=== PATIENT | male | born 1935 | race Caucasian/White ===

== ENCOUNTER 2016-05-15 14:49 | Outpatient (RCR) | payer MEDICARE ==
[2016-04-24 13:09] LABS: BASOPHILS % (AUTO) 0 % (0-10); EOSINOPHILS # (AUTO) 0.2 10^3/uL (0.0-0.3); EOSINOPHILS % (AUTO) 3 % (0-10); LYMPHOCYTES # (AUTO) 1.4 X 10^3 (1.0-4.0); LYMPHOCYTES % (AUTO) 25 % (12-44); MEAN CORPUSCULAR HEMOGLOBIN 31 PG (25-34); MEAN CORPUSCULAR HGB CONC 35 G/DL (32-36); MEAN CORPUSCULAR VOLUME 88 FL (80-99); MEAN PLATELET VOLUME 9.6 FL (7.4-10.4); MONOCYTES # (AUTO) 0.6 X 10^3 (0.0-1.0); MONOCYTES % (AUTO) 10 % (0-12); NEUTROPHILS # (AUTO) 3.5 X 10^3 (1.8-7.8); NEUTROPHILS % (AUTO) 62 % (42-75); PLATELET COUNT 93 10^3/uL (130-400); RED BLOOD COUNT 4.87 10^6/uL (4.35-5.85); RED CELL DISTRIBUTION WIDTH 14.1 % (10.0-14.5); WHITE BLOOD COUNT 5.7 10^3/uL (4.3-11.0)
[2016-04-24 14:13] LABS: BILIRUBIN,DIRECT 0.6 MG/DL (0.0-0.3); BILIRUBIN,TOTAL 3.4 MG/DL (0.1-1.0); CALCIUM 9.1 MG/DL (8.5-10.1); CREATININE SERUM 1.18 MG/DL (0.60-1.30); POTASSIUM 3.7 MMOL/L (3.6-5.0)
[~2016-05-15 14:49] MED LIST: ACID1TAB PO; ATOR10TA PO; ATOR10TA66 PO; FEXO180T84 PO; FINA5TAB6 PO; FLUC100T PO; GUAI120013 PO; HYDR-3812 PO; HYTRIN PO; IPRA3AMP INH; LACT1CAP39 PO; MERO500V3 IV; METO-333 PO; ORENCIA; PRD5T PO; PRED5TAB PO; RT-ALBUINH IH; TAMS0.4C2 PO; TERA5CAP3 PO; TOCI80VI IV
[2016-05-15 15:06] LABS: BASOPHILS % (AUTO) 0 % (0-10); EOSINOPHILS # (AUTO) 0.1 10^3/uL (0.0-0.3); EOSINOPHILS % (AUTO) 1 % (0-10); LYMPHOCYTES % (AUTO) 12 % (12-44); MEAN CORPUSCULAR HEMOGLOBIN 31 PG (25-34); MEAN CORPUSCULAR HGB CONC 35 G/DL (32-36); MEAN CORPUSCULAR VOLUME 88 FL (80-99); MEAN PLATELET VOLUME 9.7 FL (7.4-10.4); MONOCYTES # (AUTO) 0.5 X 10^3 (0.0-1.0); MONOCYTES % (AUTO) 6 % (0-12); NEUTROPHILS # (AUTO) 6.8 X 10^3 (1.8-7.8); NEUTROPHILS % (AUTO) 81 % (42-75); PLATELET COUNT 113 10^3/uL (130-400); RED BLOOD COUNT 4.76 10^6/uL (4.35-5.85); RED CELL DISTRIBUTION WIDTH 14.2 % (10.0-14.5); WHITE BLOOD COUNT 8.3 10^3/uL (4.3-11.0)
[2016-05-15 15:45] LABS: ALANINE AMINOTRANSFERASE 24 U/L (0-55); ANION GAP 8 MMOL/L (5-14); ASPARTATE AMINO TRANSFERASE 25 U/L (5-34); BLOOD UREA NITROGEN 19 MG/DL (7-18); BUN/CREATININE RATIO 19; CALCIUM 9.2 MG/DL (8.5-10.1); CARBON DIOXIDE 23 MMOL/L (21-32); CHLORIDE 108 MMOL/L (98-107); CREATININE SERUM 0.98 MG/DL (0.60-1.30); GFR ESTIMATED > 60; GLUCOSE 91 MG/DL (70-105); POTASSIUM 5.2 MMOL/L (3.6-5.0); SODIUM 139 MMOL/L (135-145); TOTAL PROTEIN 6.3 G/DL (6.4-8.2)
== END 2016-07-23 | disposition home or self-care (01) ==
LOC: ONC 14:49
PROVIDERS: ATTEND Internal Medicine Hematology & Oncology
DX: D69.59 Other secondary thrombocytopenia (principal); M06.9 Rheumatoid arthritis, unspecified; R91.1 Solitary pulmonary nodule; E78.5 Hyperlipidemia, unspecified; K57.90 Diverticulosis of intestine, part unspecified, without perforation or abscess without bleeding; N40.0 Benign prostatic hyperplasia without lower urinary tract symptoms; Z87.442 Personal history of urinary calculi
CPT/HCPCS: 36415; 80053; 82248; 85025; 99213

== ENCOUNTER 2016-07-24 13:30 | Outpatient (RCR) | payer MEDICARE ==
[2016-07-24 13:05] LABS: BASOPHILS % (AUTO) 0 % (0-10); EOSINOPHILS # (AUTO) 0.1 10^3/uL (0.0-0.3); EOSINOPHILS % (AUTO) 1 % (0-10); LYMPHOCYTES # (AUTO) 0.9 X 10^3 (1.0-4.0); LYMPHOCYTES % (AUTO) 14 % (12-44); MEAN CORPUSCULAR HEMOGLOBIN 31 PG (25-34); MEAN CORPUSCULAR HGB CONC 35 G/DL (32-36); MEAN CORPUSCULAR VOLUME 87 FL (80-99); MEAN PLATELET VOLUME 9.9 FL (7.4-10.4); MONOCYTES # (AUTO) 0.4 X 10^3 (0.0-1.0); MONOCYTES % (AUTO) 6 % (0-12); NEUTROPHILS # (AUTO) 4.9 X 10^3 (1.8-7.8); NEUTROPHILS % (AUTO) 79 % (42-75); PLATELET COUNT 92 10^3/uL (130-400); RED BLOOD COUNT 5.14 10^6/uL (4.35-5.85); RED CELL DISTRIBUTION WIDTH 13.9 % (10.0-14.5); WHITE BLOOD COUNT 6.2 10^3/uL (4.3-11.0)
[2016-07-24 14:13] LABS: ALANINE AMINOTRANSFERASE 31 U/L (0-55); ALBUMIN 4.2 G/DL (3.2-4.5); ANION GAP 8 MMOL/L (5-14); ASPARTATE AMINO TRANSFERASE 27 U/L (5-34); BILIRUBIN,TOTAL 2.8 MG/DL (0.1-1.0); BLOOD UREA NITROGEN 16 MG/DL (7-18); BUN/CREATININE RATIO 17; CALCIUM 9.2 MG/DL (8.5-10.1); CARBON DIOXIDE 23 MMOL/L (21-32); CHLORIDE 107 MMOL/L (98-107); CREATININE SERUM 0.95 MG/DL (0.60-1.30); GFR ESTIMATED > 60; GLUCOSE 91 MG/DL (70-105); POTASSIUM 4.8 MMOL/L (3.6-5.0); SODIUM 138 MMOL/L (135-145); TOTAL PROTEIN 6.2 G/DL (6.4-8.2)
== END 2016-10-22 | disposition home or self-care (01) ==
LOC: ONC 13:30
PROVIDERS: ATTEND Internal Medicine Hematology & Oncology
DX: D69.59 Other secondary thrombocytopenia (principal); M06.9 Rheumatoid arthritis, unspecified; R91.1 Solitary pulmonary nodule; E78.5 Hyperlipidemia, unspecified; K57.90 Diverticulosis of intestine, part unspecified, without perforation or abscess without bleeding; N40.0 Benign prostatic hyperplasia without lower urinary tract symptoms; Z87.442 Personal history of urinary calculi
CPT/HCPCS: 36415; 80053; 85025; 99213

== ENCOUNTER → 2016-12-24 | Outpatient (CLI) | payer MEDICARE ==
[~2016-12-24] MED LIST changes: +CATHETER FLUSH 10 ML SYR IV PRN; +IOHEXOL 350 MG/ML 100 ML (OMNIPAQUE 350) VIAL IV ONE; +NS 100 ML (IVPB) BAG IV ONE
--- NOTE | 2016-12-24 13:00 | Diagnostic Imaging Report ---
PROCEDURE: CT chest with contrast only. TECHNIQUE: Multiple contiguous axial images were obtained through the chest after administration of intravenous contrast. INDICATION: Right lower lobe lesion. FINDINGS: The previously seen nodular consolidation in the right lower lobe is now overall larger in size but also appears to involve a slightly more medial location. This is perhaps related to recurrent pneumonia, potentially secondary to aspiration based on the location. Another nonspecific nodule in the right middle lobe is 6 mm in size and is unchanged from previous exam. There is also a 5 mm nodule in the inferior lingula. This is also stable. These are indeterminate. There is bibasilar bronchiectasis and scarring probably related to prior infections. There is no pleural or pericardial effusion. The heart size is at the upper limits of normal in size. There is a small hiatal hernia. Surgical clips around the GE junction are seen. Correlate with surgical history. There are nonspecific minimally prominent lymph nodes in the right hilum and in the mediastinum. These are up to 1 cm in size. No axillary lymphadenopathy. Sections in the upper abdomen demonstrate stable benign-appearing cystic lesion in the upper anterior aspect of the spleen. Cholecystectomy clips are seen. The osseous structures demonstrate mild degenerative changes. IMPRESSION: 1. There is a slightly larger area of consolidation in the right lower lobe centered along the medial superior aspect of the previously seen nodular consolidation on 04/08/2016. Given the apparent slight change in location and morphology, this is likely related to recurrent pneumonitis. Consider aspiration etiology. 2. Bibasilar scarring and bronchiectasis which could also relate to recurrent prior aspirations. 3. Indeterminate subcentimeter pulmonary nodules in the right middle lobe and inferior lingula. 4. Followup study in 2-3 months is recommended to reevaluate. Dictated by: Dictated on workstation # [id number]
== END ==
LOC: RAD 07:50
PROVIDERS: ATTEND Urology
DX: R91.8 Other nonspecific abnormal finding of lung field (principal)
CPT/HCPCS: 71260

== ENCOUNTER 2017-02-25 13:15 | Outpatient (RCR) | payer MEDICARE ==
[~2017-02-25 13:15] MED LIST changes: -CATHETER FLUSH 10 ML SYR IV PRN; -IOHEXOL 350 MG/ML 100 ML (OMNIPAQUE 350) VIAL IV ONE; -NS 100 ML (IVPB) BAG IV ONE
[2017-02-25 13:22] LABS: BASOPHILS % (AUTO) 0 % (0-10); EOSINOPHILS # (AUTO) 0.1 10^3/uL (0.0-0.3); EOSINOPHILS % (AUTO) 2 % (0-10); LYMPHOCYTES % (AUTO) 11 % (12-44); MEAN CORPUSCULAR HEMOGLOBIN 31 PG (25-34); MEAN CORPUSCULAR HGB CONC 35 G/DL (32-36); MEAN CORPUSCULAR VOLUME 89 FL (80-99); MEAN PLATELET VOLUME 9.9 FL (7.4-10.4); MONOCYTES # (AUTO) 0.5 X 10^3 (0.0-1.0); MONOCYTES % (AUTO) 6 % (0-12); NEUTROPHILS # (AUTO) 7.1 X 10^3 (1.8-7.8); NEUTROPHILS % (AUTO) 81 % (42-75); PLATELET COUNT 99 10^3/uL (130-400); RED BLOOD COUNT 4.77 10^6/uL (4.35-5.85); RED CELL DISTRIBUTION WIDTH 14.2 % (10.0-14.5); WHITE BLOOD COUNT 8.7 10^3/uL (4.3-11.0)
[2017-02-25 13:55] LABS: ALANINE AMINOTRANSFERASE 25 U/L (0-55); ALBUMIN 3.7 GM/DL (3.2-4.5); ANION GAP 6 MMOL/L (5-14); ASPARTATE AMINO TRANSFERASE 22 U/L (5-34); BILIRUBIN,TOTAL 2.4 MG/DL (0.1-1.0); BLOOD UREA NITROGEN 13 MG/DL (7-18); BUN/CREATININE RATIO 14; CALCIUM 8.9 MG/DL (8.5-10.1); CARBON DIOXIDE 23 MMOL/L (21-32); CHLORIDE 108 MMOL/L (98-107); GFR ESTIMATED > 60; GLUCOSE 93 MG/DL (70-105); LACTATE DEHYDROGENASE 169 U/L (125-220); POTASSIUM 4.4 MMOL/L (3.6-5.0); SODIUM 137 MMOL/L (135-145); TOTAL PROTEIN 5.4 GM/DL (6.4-8.2)
== END 2017-03-05 10:06 | disposition home or self-care (01) ==
LOC: ONC 13:15
PROVIDERS: ATTEND Internal Medicine Hematology & Oncology
DX: D69.59 Other secondary thrombocytopenia (principal); M06.9 Rheumatoid arthritis, unspecified; R91.1 Solitary pulmonary nodule; E78.5 Hyperlipidemia, unspecified; K57.90 Diverticulosis of intestine, part unspecified, without perforation or abscess without bleeding; N40.0 Benign prostatic hyperplasia without lower urinary tract symptoms; Z87.442 Personal history of urinary calculi
CPT/HCPCS: 36415; 80053; 83615; 85025; 99213

== ENCOUNTER → 2017-07-14 | Outpatient (CLI) | payer MEDICARE ==
[~2017-07-14] MED LIST changes: +ACHD5005 PO; -HYDR-3812 PO
--- NOTE | 2017-07-14 16:45 | Diagnostic Imaging Report ---
PROCEDURE: CT chest without contrast. TECHNIQUE: Multiple contiguous axial images were obtained through the chest without the use of intravenous contrast. INDICATION: Asthma, shortness of breath. FINDINGS: The previous CT chest exam performed on 12/14/2016 noted postsurgical changes involving the right thorax as well as an area of consolidation in the right lung base. On this exam, the irregular parenchymal density in the right lower lobe seen previously is again evident and does not seem to have changed significantly in size; however, there is now a suggestion of a small 8 mm focus of cavitation along the medial aspect of this abnormal parenchymal density. There has also been an increase in the atelectasis/infiltrate lateral to this area of consolidation. The atelectasis/infiltrate involving the left lung base seen previously is again evident and no different. The small nodules in the lingula and right middle lobe are again evident and no different. The upper lungs are relatively clear. There is no sign of a pleural effusion. The heart is stable in size. Coronary artery calcifications are again noted. The aorta is not abnormally dilated. There is no obvious mediastinal or hilar adenopathy. The thyroid gland where visualized is unremarkable. The sections through the upper abdomen fail to show any sign of an acute abnormality. A portion of the stomach has extended through the diaphragmatic hiatus. I suspect that this is a paraesophageal hernia as opposed to a hiatal hernia. If further study is desired, then an esophagram would be recommended. As noted no the prior exam, the gallbladder is surgically absent. There are several benign-appearing cysts associated with the spleen. The bone windows show no sign of a fracture or for an acute abnormality. The post traumatic/postsurgical changes involving the right thorax seen previously are again evident and no different. IMPRESSION: 1. The area of consolidation in the right lung base seen previously does not appear to have changed significantly although there now appears to be a small focus of cavitation in this area. There has been some increase in the atelectasis/infiltrate in the right lung base near the right hemidiaphragm. I suspect that these findings are related to an indolent inflammatory/infectious process. A three-month follow-up CT chest exam will be recommended for further study. 2. There is no acute cardiopulmonary abnormality identified. 3. There is cardiomegaly and coronary artery disease. 4. 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 Recommendations as above. Dictated by: Dictated on workstation # [id number]
== END ==
LOC: RAD 13:37
PROVIDERS: ATTEND Nurse Practitioner Family
DX: J45.909 Unspecified asthma, uncomplicated (principal); J18.1 Lobar pneumonia, unspecified organism; I51.7 Cardiomegaly; I25.10 Atherosclerotic heart disease of native coronary artery without angina pectoris
CPT/HCPCS: 71250

== ENCOUNTER → 2018-01-07 | Outpatient (CLI) | payer MEDICARE ==
[~2018-01-07] MED LIST changes: -IPRA3AMP INH; +IPRA3AMP31 INH
--- NOTE | 2018-01-07 11:04 | Diagnostic Imaging Report ---
PROCEDURE: CT chest without contrast. TECHNIQUE: Multiple contiguous axial images were obtained through the chest without the use of intravenous contrast. INDICATION: Shortness of breath and six-month followup. COMPARISON: Comparison is made with prior CT chest from 07/14/2017. FINDINGS: No axillary lymphadenopathy is identified. Hilar and mediastinal evaluation is limited without intravenous contrast but no gross abnormality is seen. There are coronary arterial calcifications present. No definite pericardial or pleural fluid is identified. Large hiatal hernia is again seen. Parenchymal evaluation again demonstrates small nodular densities in right middle lobe and lingula, stable. Chronic bilateral lower lobe areas of parenchymal consolidation with associated cylindrical bronchiectasis is again noted and appears similar. Area of consolidation in the right lower lobe posteriorly is stable. The region of parenchymal consolidation with associated central cavitation in the right lower lobe just cephalad to the dominant consolidation has resolved or nearly resolved. There continues to be some consolidation laterally near the costophrenic angle. No new infiltrate is seen. Upper abdomen again shows low densities within the spleen, stable. IMPRESSION: 1. There continue to be regions of parenchymal consolidation bilateral lower lobes greatest on the right with associated bronchiectasis. This is again likely on the basis of infectious/inflammatory etiology. Previously noted area of consolidation with central cavitation has improved and partially resolved since CT from 07/14/2017. No new abnormality is detected. Dictated by: Dictated on workstation # [id number]
== END ==
LOC: RAD 10:06
PROVIDERS: ATTEND Nurse Practitioner Family
DX: J18.1 Lobar pneumonia, unspecified organism (principal); J44.9 Chronic obstructive pulmonary disease, unspecified
CPT/HCPCS: 71250

== ENCOUNTER 2018-04-01 07:46 | Outpatient (RCR) | payer MEDICARE ==
[2018-04-01 08:19] LABS: BASOPHILS % (AUTO) 1 % (0-10); EOSINOPHILS # (AUTO) 0.2 10^3/uL (0.0-0.3); EOSINOPHILS % (AUTO) 3 % (0-10); HEMATOCRIT 43 % (40-54); HEMOGLOBIN 15.3 G/DL (13.3-17.7); LYMPHOCYTES # (AUTO) 1.3 X 10^3 (1.0-4.0); LYMPHOCYTES % (AUTO) 26 % (12-44); MEAN CORPUSCULAR HEMOGLOBIN 31 PG (25-34); MEAN CORPUSCULAR HGB CONC 35 G/DL (32-36); MEAN CORPUSCULAR VOLUME 88 FL (80-99); MEAN PLATELET VOLUME 9.6 FL (7.4-10.4); MONOCYTES # (AUTO) 0.6 X 10^3 (0.0-1.0); MONOCYTES % (AUTO) 11 % (0-12); NEUTROPHILS % (AUTO) 59 % (42-75); PLATELET COUNT 117 10^3/uL (130-400); RED BLOOD COUNT 4.92 10^6/uL (4.35-5.85); RED CELL DISTRIBUTION WIDTH 13.6 % (10.0-14.5); WHITE BLOOD COUNT 5.1 10^3/uL (4.3-11.0)
[2018-04-01 08:21] LABS: ALANINE AMINOTRANSFERASE 26 U/L (0-55); ALKALINE PHOSPHATASE 70 U/L (40-136); BILIRUBIN,TOTAL 2.3 MG/DL (0.1-1.0); BUN/CREATININE RATIO 14; CALCIUM 9.4 MG/DL (8.5-10.1); CARBON DIOXIDE 22 MMOL/L (21-32); CHLORIDE 108 MMOL/L (98-107); CREATININE SERUM 1.07 MG/DL (0.60-1.30); GFR ESTIMATED > 60; GLUCOSE 84 MG/DL (70-105); POTASSIUM 4.2 MMOL/L (3.6-5.0); SODIUM 139 MMOL/L (135-145); TOTAL PROTEIN 6.4 GM/DL (6.4-8.2)
== END 2018-06-28 | disposition home or self-care (01) ==
LOC: ONC 07:46
PROVIDERS: ATTEND Internal Medicine Hematology & Oncology
DX: D69.59 Other secondary thrombocytopenia (principal); M06.9 Rheumatoid arthritis, unspecified; R91.1 Solitary pulmonary nodule; E78.5 Hyperlipidemia, unspecified; K57.90 Diverticulosis of intestine, part unspecified, without perforation or abscess without bleeding; N40.0 Benign prostatic hyperplasia without lower urinary tract symptoms; Z87.442 Personal history of urinary calculi
CPT/HCPCS: 36415; 80053; 85025

== ENCOUNTER → 2020-07-04 | Outpatient (CLI) | payer MEDICARE ==
[~2020-07-04] MED LIST changes: +MERO500V24 IV; -MERO500V3 IV; +RT-ALBUTEROL SULF 2.5 MG/3 ML PRE-MIX VIAL INH ONE
== END ==
LOC: RT 13:00
PROVIDERS: ATTEND Nurse Practitioner Family
DX: J44.9 Chronic obstructive pulmonary disease, unspecified (principal)
CPT/HCPCS: 94060; 94726; 94729

== ENCOUNTER 2020-09-03 15:03 | Emergency (ER) | payer MEDICARE ==
[~2020-09-03] VITALS: Ht 177 cm; Wt 84.0 kg
[~2020-09-03 15:03] MED LIST changes: -RT-ALBUTEROL SULF 2.5 MG/3 ML PRE-MIX VIAL INH ONE; +TERA5CAP10 PO; -TERA5CAP3 PO
--- NOTE | 2020-09-03 15:35 | ED EENT ---
History of Present Illness General Stated Complaint: CONFUSION/DIZZY Source: patient, family Exam Limitations: physical impairment (Hearing difficulty) History of Present Illness Date Seen by Provider: Sep 03, 2020 Time Seen by Provider: 15:15 Initial Comments Patient is an 85-year-old male who presents to the emergency department today with a chief complaint of feeling "fuzzy" and dizzy for the last 10 days to 1 months. Patient has had extensive surgeries on both ears and his only hearing ear is his left ear. Patient states he has had drainage out of that left ear and has been using eardrops for the last 3 weeks. His daughter is present at the bedside and helps with the history. The patient is communicated with by khalida lawler as he is so hard of hearing. He denies pain. He denies fevers or chills. No abdominal pain. No cough or congestion. His daughter states that he has been having some issues with balance and coordination. She was concerned about a stroke as her mother just had a stroke yesterday. The patient overall looks very well. He ambulates with a cane to room 8 without assistance. He is interactive and affable. All other review of systems reviewed and negative except as stated above. Timing/Duration: gradual Severity: moderate Location: ear (L) Prearrival Treatment: no prearrival treatment, prescription meds (gentamycin ear drops) Associated Symptoms: change in hearing (harder to hear even with hearing aid) Allergies and Home Medications Allergies Coded Allergies: Sulfa (Sulfonamide Antibiotics) (Unverified Allergy, Unknown, 07/04/20) Home Medications Albuterol Sulfate 8.5 Gm Hfa.aer.ad, 1 PUFF IH Q6H PRN for SHORTNESS OF BREATH, (Reported) Atorvastatin Calcium 10 Mg Tablet, 5 MG PO HS, (Reported) Cefuroxime Axetil 250 Mg Tablet, 250 MG PO BID Prescribed by: DIXIE THOMPSON on 09/03/20 1540 Fexofenadine HCl 180 Mg Tablet, 180 MG PO DAILY PRN for ALLERGY, (Reported) Finasteride 5 Mg Tablet, 5 MG PO DAILY, (Reported) Fluconazole 100 Mg Tablet, 100 MG PO DAILY Prescribed by: DIONNE SAMUEL on 03/10/15 1050 Guaifenesin 1,200 Mg Tab.er.12h, 1,200 MG PO DAILY, (Reported) Hydrocodone Bit/Acetaminophen 1 Each Tablet, 1 TAB PO Q6H PRN for PAIN, (Reported) Ipratropium/Albuterol Sulfate 3 Ml Ampul.neb, 3 ML INH TID Prescribed by: DIONNE SAMUEL on 03/10/15 1050 L. Acidophilus/Bulgaricus 1 Each Tablet, 1 TAB.CHEW PO DAILY PRN for REGULARITY Prescribed by: DIONNE SAMUEL on 03/10/15 1050 Lactobacillus Rhamnosus GG 1 Each Capsule, 1 CAP PO DAILY PRN for REGULARITY, (Reported) Meropenem 500 Mg Vial, 500 MG IV Q12H Prescribed by: DIONNE SAMUEL on 03/10/15 1050 Metoprolol Tartrate 25 Mg Tablet, 25 MG PO BID Prescribed by: DIONNE SAMUEL on 03/10/15 1050 Prednisone 5 Mg Tablet, 10 MG PO DAILY, (Reported) Terazosin HCl 5 Mg Capsule, 5 MG PO HS, (Reported) Patient Home Medication List Home Medication List Reviewed: Yes Review of Systems Review of Systems Constitutional: see HPI Eyes: No Symptoms Reported Ears: Dizziness, Purulent Discharge, Other (Decreased hearing over the course of the last month) Nose: no symptoms reported Mouth: no symptoms reported Throat: no symptoms reported Respiratory: no symptoms reported Cardiovascular: no symptoms reported Gastrointestinal: no symptoms reported Musculoskeletal: other (chronnic arthritis pain) Skin: no symptoms reported Neurological: Other (dizziness and "fuzzy" headed) All Other Systems Reviewed Negative Unless Noted: Yes Past Uubayoq-Wmdqvt-Uozuky Hx Immunizations Up To Date Tetanus Booster (TDap): More than 5yrs Date of Pneumonia Vaccine: Feb 20, 2009 Date of Influenza Vaccine: Feb 07, 2011 Past Medical History Abdominal, Gallbladder, Tonsillectomy Emphysema Currently Using CPAP: No Currently Using BIPAP: No Reproductive Disorders: No Sexually Transmitted Disease: No Benign Prostatic Hyperpl, Kidney Stones Hiatal Hernia Rheumatoid Arthritis Adverse Reaction/Blood Tranf: No Family Medical History Cardiovascular disease 19 MOTHER Myocardial infarction 19 FATHER PANCREATIC 19 MOTHER Cancer, CAD Over 55 Years Old Physical Exam Vital Signs Vital Signs - First Documented 09/03/20 15:14 Temp 36.6 Pulse 78 Resp 18 B/P (MAP) 139/89 (106) Pulse Ox 96 Height, Weight, BMI Height: 5'10.00" Weight: 199lbs. 16.0oz. 90.595216ly; BMI Method: General Appearance: WD/WN, no apparent distress Ears: left ear TM dull, left ear TM perforation (Purulent discharge noted from the left TM, loss of normal landmarks), left ear other (No mastoid tenderness) Mouth/Throat: normal mouth inspection, pharynx normal Cardiovascular: regular rate, rhythm, other (Intact radial pulses bilaterally) Respiratory: lungs clear, normal breath sounds, no respiratory distress, no accessory muscle use Gastrointestinal: non tender, soft Neurologic/Psychiatric: alert, normal mood/affect, oriented x 3, other (Normal strength and sensation, normal omrhzp-lw-yzzg, normal gait) Skin: normal color, warm/dry Progress/Results/Core Measures Results/Orders Lab Results Laboratory Tests Test 09/03/20 15:30 Range/Units White Blood Count 6.2 4.3-11.0 10^3/uL Red Blood Count 4.77 4.30-5.52 10^6/uL Hemoglobin 14.4 13.3-17.7 g/dL Hematocrit 42 40-54 % Mean Corpuscular Volume 87 80-99 fL Mean Corpuscular Hemoglobin 30 25-34 pg Mean Corpuscular Hemoglobin Concent 35 32-36 g/dL Red Cell Distribution Width 13.4 10.0-14.5 % Platelet Count 108 L 130-400 10^3/uL Mean Platelet Volume 10.0 9.0-12.2 fL Immature Granulocyte % (Auto) 0 % Neutrophils (%) (Auto) 66 42-75 % Lymphocytes (%) (Auto) 18 12-44 % Monocytes (%) (Auto) 7 0-12 % Eosinophils (%) (Auto) 7 0-10 % Basophils (%) (Auto) 1 0-10 % Neutrophils # (Auto) 4.1 1.8-7.8 10^3/uL Lymphocytes # (Auto) 1.1 1.0-4.0 10^3/uL Monocytes # (Auto) 0.5 0.0-1.0 10^3/uL Eosinophils # (Auto) 0.5 H 0.0-0.3 10^3/uL Basophils # (Auto) 0.0 0.0-0.1 10^3/uL Immature Granulocyte # (Auto) 0.0 0.0-0.1 10^3/uL Sodium Level 139 135-145 MMOL/L Potassium Level 4.2 3.6-5.0 MMOL/L Chloride Level 106 98-107 MMOL/L Carbon Dioxide Level 22 21-32 MMOL/L Anion Gap 11 5-14 MMOL/L Blood Urea Nitrogen 21 H 7-18 MG/DL Creatinine 1.16 0.60-1.30 MG/DL Estimat Glomerular Filtration Rate 60 BUN/Creatinine Ratio 18 Glucose Level 91 70-105 MG/DL Calcium Level 8.8 8.5-10.1 MG/DL My Orders Orders - DIXIE THOMPSON MD Cbc With Automated Diff (09/03/20 15:26) Basic Metabolic Panel (09/03/20 15:26) Vital Signs/I&O 09/03/20 15:14 Temp 36.6 Pulse 78 Resp 18 B/P (MAP) 139/89 (106) Pulse Ox 96 Progress Progress Note : Time: 15:35 Progress Note Case discussed with Dr. Hahn, the patient's ENT physician. The Dr. Hahn will see the patient in clinic tomorrow to clean out his left ear. He recommends Ceftin 250 mg p.o. twice daily for 10 days. Patient has no clinical or objective findings consistent with stroke. I believe his balance issues are all related to middle ear infection. Patient also has purulence behind the right ear as well. He is afebrile, normal blood pressure and pulse. No findings concerning for sepsis. Basic laboratory function will be evaluated just to make sure that there are no other concerning findings as this patient has not seen his physician in greater than a year. The daughter is very concerned about his overall general health. Departure Impression Primary Impression: Dizziness Additional Impression: Otitis media Qualified Codes: H66.005 - Acute suppurative otitis media without spontaneous rupture of ear drum, recurrent, left ear Disposition: HOME, SELF-CARE Condition: Stable Departure-Patient Inst. Referrals: AMELIA HAHN MD, LISA A MD (PCP/Family) Primary Care Physician Patient Instructions: Ear Infection ED Add. Discharge Instructions: Continue your daily home medications as prescribed. I have given you a prescription for Ceftin, take this 250 mg twice daily for 10 days. Please keep your follow-up appointment with Dr. Hahn tomorrow. Come back to the emergency department for any worsening ear infection, especially with fever, headache, worsening balance issues or any other emergent concerns. Scripts Cefuroxime Axetil (Cefuroxime) 250 Mg Tablet 250 MG PO BID for 10 Days, #20 TAB Prov: DIXIE THOMPSON MD 09/03/20 DIXIE THOMPSON MD Sep 03, 2020 15:35
[2020-09-03 15:40] LABS: BASOPHILS % (AUTO) 1 % (0-10); EOSINOPHILS # (AUTO) 0.5 10^3/uL (0.0-0.3); EOSINOPHILS % (AUTO) 7 % (0-10); HEMATOCRIT 42 % (40-54); HEMOGLOBIN 14.4 g/dL (13.3-17.7); LYMPHOCYTES # (AUTO) 1.1 10^3/uL (1.0-4.0); LYMPHOCYTES % (AUTO) 18 % (12-44); MEAN CORPUSCULAR HEMOGLOBIN 30 pg (25-34); MEAN CORPUSCULAR HGB CONC 35 g/dL (32-36); MEAN CORPUSCULAR VOLUME 87 fL (80-99); MONOCYTES # (AUTO) 0.5 10^3/uL (0.0-1.0); MONOCYTES % (AUTO) 7 % (0-12); NEUTROPHILS # (AUTO) 4.1 10^3/uL (1.8-7.8); NEUTROPHILS % (AUTO) 66 % (42-75); PLATELET COUNT 108 10^3/uL (130-400); WHITE BLOOD COUNT 6.2 10^3/uL (4.3-11.0)
[2020-09-03] MEDS ORDERED: CEFU250T80 PO (15:40)
[2020-09-03 15:56] LABS: POTASSIUM 4.2 MMOL/L (3.6-5.0)
[2020-09-03 15:57] LABS: CALCIUM 8.8 MG/DL (8.5-10.1)
[2020-09-03 16:01] LABS: CREATININE SERUM 1.16 MG/DL (0.60-1.30)
[2020-09-03 16:17] VITALS: BP 128/82
== END 2020-09-03 16:18 | disposition home or self-care (01) ==
LOC: EDUNIT# 15:03 → ER 15:05
DX: R42 Dizziness and giddiness (principal); H66.005 Acute suppurative otitis media without spontaneous rupture of ear drum, recurrent, left ear; J43.9 Emphysema, unspecified; Z87.438 Personal history of other diseases of male genital organs; Z79.52 Long term (current) use of systemic steroids; Z88.2 Allergy status to sulfonamides; Z79.2 Long term (current) use of antibiotics; Z80.0 Family history of malignant neoplasm of digestive organs
CPT/HCPCS: 36415; 80048; 85025

== ENCOUNTER 2020-09-07 13:18 | Inpatient (IN) | payer MEDICARE ==
[~2020-09-07] VITALS: Ht 177.8 cm; Wt 82.4 kg
[~2020-09-07 13:18] MED LIST changes: +CEFU250T80 PO
[2020-09-07] MEDS ORDERED: ACET-2840 PO (14:59)
[2020-09-07] MEDS ORDERED: CEFU250T80 PO (14:59)
[2020-09-07] MEDS ORDERED: FINA5TAB6 PO (14:59)
[2020-09-07] MEDS ORDERED: PRD20T PO (14:59)
[2020-09-07] MEDS ORDERED: FLUT1DIS26 IH (14:59)
[2020-09-07 16:50] VITALS: BP 155/68
[2020-09-07] MEDS ORDERED: RT-ALBUTEROL SULF 2.5 MG/3 ML PRE-MIX VIAL IH PRN (18:00)
[2020-09-07] MEDS ORDERED: NON-FORMULARY MEDICATION 1 EA EA (Acetaminophen (Tylenol 8 Hour) 650 MG) PO SCH (18:00)
--- NOTE | 2020-09-07 18:44 | PM&R Post Admission Assessment ---
PM&R Date of Visit: Sep 07, 2020 Time of Visit: 18:40 History of Present Illness CC: Recovery from closed hear injury with subdural hematoma HPI: This is a 85yoWM clinic patient of Dr Richey who presents to the IRF after DC from [place] [facility] [place] a cow hit a metal gate and then hit him in the face resulting in facial injuries with laceration and subdural hematoma with right 6th rib fracture. Dr Deleon, ENT consulted for the bilateral air in orbits from bilateral orbital wall fractures and Dr Hahn was notified and will see him tomorrow morning. Dr Muhammad NSG assessed the subdural hematoma to not require intervention. Dr Hahn dx with bilateral ear infection last week and abx maintained. Currently patient has bilateral wheezing and rales so CXR will be obtained tomorrow morning along with labs. PLOF is independent without use of AD. Past Vabxkjq-Eizhmy-Oqiiyd Hx Past Med/Social Hx: Reviewed Nursing Past Med/Soc Hx, Reviewed and Corrections made Patient Social History Marrital Status: Employed/Student: retired ([employer]) Alcohol Use: Denies Use Smoking Status: Never a Smoker Type Used: Smokeless Tobacco Recent Foreign Travel: No Contact w/other who traveled: No Recent Hopitalizations: No Immunizations Up To Date Tetanus Booster (TDap): More than 5yrs Date of Pneumonia Vaccine: Feb 20, 2009 Date of Influenza Vaccine: Feb 07, 2011 Past Medical History Surgeries: Abdominal, Gallbladder, Tonsillectomy Respiratory: Emphysema, Pneumonia interstitial lung disease Currently Using CPAP: No Currently Using BIPAP: No Reproductive: No Sexually Transmitted Disease: No Genitourinary: Benign Prostatic Hyperpl, Kidney Stones Gastrointestinal: Hiatal Hernia Musculoskeletal: Rheumatoid Arthritis Hearing Impairment: Hard of Hearing, Bilateral Hearing Aide History of Blood Disorders: No Adverse Reaction to Blood [place]: No Family History Cardiovascular disease 19 MOTHER Myocardial infarction 19 FATHER PANCREATIC 19 MOTHER Cancer, CAD Over 55 Years Old PM&R Allergy/Meds/Data Review Allergies Coded Allergies: Sulfa (Sulfonamide Antibiotics) (Unverified Allergy, Unknown, 07/04/20) Home Medications Scheduled Acetaminophen (Tylenol 8 Hour), 650 MG PO Q4H, (Reported) Cefuroxime Axetil (Cefuroxime), 250 MG PO BID, (Reported) Finasteride (Finasteride), 5 MG PO DAILY, (Reported) Fluticasone/Salmeterol (Advair 250-50 Diskus), 2 EACH IH DAILY, (Reported) Guaifenesin (Mucinex), 1,200 MG PO DAILY, (Reported) Prednisone (Prednisone), MG PO DAILY, (Reported) Terazosin HCl (Terazosin HCl), 5 MG PO DAILY, (Reported) Scheduled PRN Albuterol Sulfate (Proair Hfa), 1-2 PUFF IH Q4H PRN for SHORTNESS OF BREATH, (Reported) Discontinued Medications Atorvastatin Calcium (Atorvastatin Calcium), 5 MG PO HS, (Reported) Discontinued Reason: No Longer Taking Cefuroxime Axetil (Cefuroxime), 250 MG PO BID Discontinued Reason: No Longer Taking Fexofenadine HCl (Dana Allergy), 180 MG PO DAILY PRN for ALLERGY, (Reported) Discontinued Reason: No Longer Taking Finasteride (Finasteride), 5 MG PO DAILY, (Reported) Discontinued Reason: No Longer Taking Fluconazole (Diflucan), 100 MG PO DAILY Discontinued Reason: No Longer Taking Hydrocodone Bit/Acetaminophen (Lortab 5 Mg Tablet), 1 TAB PO Q6H PRN for PAIN, (Reported) Discontinued Reason: No Longer Taking Ipratropium/Albuterol Sulfate (Iprat-Albut 0.5-3(2.5) mg/3 ml), 3 ML INH TID Discontinued Reason: No Longer Taking L. Acidophilus/Bulgaricus (Floranex Tablet), 1 TAB.CHEW PO DAILY PRN for REGULAR ITY Discontinued Reason: No Longer Taking Lactobacillus Rhamnosus GG (Culturelle), 1 CAP PO DAILY PRN for REGULARITY, (Reported) Discontinued Reason: No Longer Taking Meropenem (Meropenem), 500 MG IV Q12H Discontinued Reason: No Longer Taking Metoprolol Tartrate (Metoprolol Tartrate), 25 MG PO BID Discontinued Reason: No Longer Taking Prednisone (Prednisone), 10 MG PO DAILY, (Reported) Discontinued Reason: No Longer Taking Current Medications Current Medications Reviewed Review of Systems Constitutional: see HPI, dizziness, malaise, weakness EENTM: hearing loss, ear pain, eye pain, mouth pain Respiratory: cough, dyspnea on exertion, short of breath, wheezing Cardiovascular: no symptoms reported Gastrointestinal: constipation Genitourinary: no symptoms reported Musculoskeletal: back pain, joint pain, muscle pain, muscle stiffness, muscle cramps Skin: no symptoms reported Psychiatric/Neurological: No Symptoms Reported All Other Systems Reviewed Negative Unless Noted: Yes Physical Exam Physical Exam Vital Signs Vital Signs - First Documented 09/07/20 09/07/20 16:50 16:52 Temp 37.0 Pulse 73 Resp 16 B/P (MAP) 155/68 (97) Pulse Ox 92 O2 Delivery Room Air Capillary Refill : Height, Weight, BMI Height: 5'10.00" Weight: 199lbs. 16.0oz. 90.018496cl; 26.00 BMI Method: General Appearance: No Apparent Distress, WD/WN, Chronically ill Eyes: Bilateral Eye Normal Inspection, Bilateral Eye PERRL HEENT: PERRL/EOMI, Pharynx Normal, Other (severe ANDREAFSKI, facial injuries with sutured left face) Neck: Full Range of Motion, Normal Inspection, Non Tender, Supple, Carotid Bruit Respiratory: Chest Non Tender, No Accessory Muscle Use, No Respiratory Distress, Crackles, Decreased Breath Sounds, Wheezing Cardiovascular: Regular Rate, Rhythm, No Edema, No Gallop, No JVD, No Murmur, Normal Peripheral Pulses Gastrointestinal: Normal Bowel Sounds, No Organomegaly, No Pulsatile Mass, Non Tender, Soft Back: Normal Inspection, No CVA Tenderness, No Vertebral Tenderness Extremity: Normal Capillary Refill, Normal Inspection, Normal Range of Motion, Non Tender, No Calf Tenderness, No Pedal Edema Neurologic/Psychiatric: Alert, Oriented x3, No Motor/Sensory Deficits, Normal Mood/Affect Skin: Normal Color, Warm/Dry Lymphatic: No Adenopathy PM&R Medical Assessment & Plan REHAB/MEDICAL ASSESSMENT AND PLAN: REHAB IMPAIRMENT GROUP: Subdural hematoma ETIOLOGIC DIAGNOSIS: Subdural hematoma The comorbidities that impact the patients function and/or functional outcome by: advanced age, TBI, severe ANDREAFSKI with current OM bilateral, Fall risk, rib pain REHAB PLAN: The patient is being admitted to our comprehensive inpatient rehabilitation facility and can tolerate the intensity of service consisting of at least: 180 minutes of therapy a day, 5 out of 7 days a week Rehab treatment will consist of: PT OT will focus on regaining function in order to resolve deficits from injuries along with the use of AD to prevent falls The patient/family has a good understanding of our discharge process and will benefit from an interdisciplinary inpatient rehabilitation program. The patient has potential to make improvement and is in need of at least two of the following multidisciplinary therapies including but not limited to physical, occupational, speech, and prosthetics and orthotics. Additionally the patient will need services from respiratory, nutritional services, wound care, psychology, etc. (Customize this to each patient). Given the patients complex condition and risk of further medical complications, rehabilitation services cannot be safely or effectively provided at a lower level of care such as a senior living facility. BARRIERS TO DISCHARGE: Advanced age with ANDREAFSKI ESTIMATED LOS: 7 days DISPOSITION: Home RELEVANT CHANGES SINCE PREADMISSION SCREENING: I have compared the patients medical and functional status at the time of the preadmission screening and there are: no changes PROGNOSIS: Guarded REHABILITATION GOALS: 1.PT OT will focus on regaining function in order to resolve deficits from injuries along with the use of AD to prevent falls All the above goals were reviewed with the patient and he/she is in agreement. By signing this document, I acknowledge that I have personally performed a full physical examination on this patient within 24 hours of admission to this inpatient rehabilitation facility and have determined the patient to be able to tolerate the above course of treatment at an intensive level for a reasonable period of time. I will be completing a detailed individualized Plan of Care for this patient by day #4 of the patients stay based upon the Preadmission Screen, the Post-Admission Evaluation, and the therapy evaluations. Admission Dx/Comorbidities: (1) Subdural hematoma ICD Codes: S06.5X9A - Traumatic subdural hemorrhage with loss of consciousness of unspecified duration, initial encounter (2) Rheumatoid arthritis ICD Codes: M06.9 - Rheumatoid arthritis, unspecified (3) Rales ICD Codes: R09.89 - Other specified symptoms and signs involving the c irculatory and respiratory systems (4) Interstitial lung disease ICD Codes: J84.9 - Interstitial pulmonary disease, unspecified (5) Emphysema of lung ICD Codes: J43.9 - Emphysema, unspecified (6) Orbital wall fracture ICD Codes: S02.85XA - Fracture of orbit, unspecified, initial encounter for closed fracture (7) BPH (benign prostatic hyperplasia) ICD Codes: N40.0 - Benign prostatic hyperplasia without lower urinary tract symptoms Assessment/Plan Assessment and Plan Assess & Plan/Chief Complaint Assessment: Facial and head trauma from steer moving gate striking head Subdural hematoma Facial fractures Bilateral OM Severe ANDREAFSKI RA COPD Interstitial lung disease Plan: Nebs BM regimen IRF protocol Monitor closely DIONNE SAMUEL DO Sep 07, 2020 18:44
[2020-09-07] MEDS ORDERED: diphenhydrAMINE 25 MG TAB (BENADRYL) PO PRN (18:45)
[2020-09-07] MEDS ORDERED: DOCUSATE SODIUM 100 MG (COLACE) CAP PO PRN (18:45)
[2020-09-07] MEDS ORDERED: LOPERAMIDE 2 MG (IMODIUM) TABLET PO PRN (18:45)
[2020-09-07] MEDS ORDERED: BISACODYL 10 MG SUPP (DULCOLAX) PR PRN (18:45)
[2020-09-07] MEDS ORDERED: ENOXAPARIN 40 MG/0.4 ML (LOVENOX) SYR SC SCH (18:45)
[2020-09-07] MEDS ORDERED: ACETAMINOPHEN 325 MG TABLET PO PRN (18:45)
[2020-09-07] MEDS ORDERED: polyethylene glycoL POWDER 17 GM (MIRALAX) PACK PO NR (18:45)
[2020-09-07] MEDS ORDERED: FLEET ENEMA ADULT 1 EA BTL PR PRN (18:45)
[2020-09-07] MEDS ORDERED: CALCIUM CARBONATE 500 MG (TUMS) TAB.CHEW PO PRN (18:45)
[2020-09-07] MEDS ORDERED: ALPRAZolam 0.25 MG (XANAX) TAB PO PRN (18:45)
[2020-09-07] MEDS ORDERED: ONDANSETRON 4 MG (ZOFRAN) ORAL DISSOLVE TAB PO PRN (18:45)
[2020-09-07] MEDS ORDERED: SENNA W/DOCUSATE (SENOKOT S) TABLET PO NR (18:45)
[2020-09-07] MEDS ORDERED: LACTULOSE SYRUP 10GM/15ML (ENULOSE) 30ML UDC PO PRN (18:45)
[2020-09-07] MEDS ORDERED: RT-ALBUTEROL SULF 2.5 MG/3 ML PRE-MIX VIAL INH PRN (18:45)
[2020-09-07] MEDS ORDERED: LACTULOSE SYRUP 10GM/15ML (ENULOSE) 30ML UDC PO NR (18:45)
[2020-09-07] MEDS: ACETAMINOPHEN 325 MG TABLET PO SCH ×2 (18:59→23:31)
[2020-09-07] MEDS: RT-ALBUTEROL SULF 2.5 MG/3 ML PRE-MIX VIAL INH SCH ×2 (19:00→19:33)
[2020-09-07] MEDS ORDERED: CEFUROXIME AXETIL 250 MG PO SCH (21:00)
[2020-09-07] MEDS: polyethylene glycoL POWDER 17 GM (MIRALAX) PACK PO SCH (21:38)
[2020-09-07] MEDS: SENNA W/DOCUSATE (SENOKOT S) TABLET PO SCH (21:39)
[2020-09-07] MEDS: CEFDINIR 300 MG (OMNICEF) CAP PO SCH (21:39)
[2020-09-07] MEDS: RT--FLUTICASONE/SALMETEROL 113-14 (AIRDUO RespiCLICK) IH SCH (21:52)
[2020-09-08] MEDS: ACETAMINOPHEN 325 MG TABLET PO SCH ×6 (03:50→23:11)
[2020-09-08 05:41] LABS: BASOPHILS % (AUTO) 0 % (0-10); EOSINOPHILS % (AUTO) 0 % (0-10); MEAN PLATELET VOLUME 10.1 fL (9.0-12.2); NEUTROPHILS % (AUTO) 86 % (42-75)
[2020-09-08 05:43] LABS: HEMATOCRIT 38 % (40-54); HEMOGLOBIN 12.5 g/dL (13.3-17.7); LYMPHOCYTES # (AUTO) 0.8 10^3/uL (1.0-4.0); LYMPHOCYTES % (AUTO) 7 % (12-44); MEAN CORPUSCULAR HEMOGLOBIN 30 pg (25-34); MEAN CORPUSCULAR HGB CONC 33 g/dL (32-36); MEAN CORPUSCULAR VOLUME 89 fL (80-99); MONOCYTES # (AUTO) 0.7 10^3/uL (0.0-1.0); MONOCYTES % (AUTO) 6 % (0-12); NEUTROPHILS # (AUTO) 10.3 10^3/uL (1.8-7.8); PLATELET COUNT 105 10^3/uL (130-400); WHITE BLOOD COUNT 11.9 10^3/uL (4.3-11.0)
[2020-09-08 05:58] LABS: ALANINE AMINOTRANSFERASE 17 U/L (0-55); ALBUMIN 3.4 GM/DL (3.2-4.5); ALKALINE PHOSPHATASE 63 U/L (40-136); BILIRUBIN,TOTAL 1.2 MG/DL (0.1-1.0); BUN/CREATININE RATIO 25; CALCIUM 8.7 MG/DL (8.5-10.1); CARBON DIOXIDE 24 MMOL/L (21-32); CHLORIDE 105 MMOL/L (98-107); CREATININE SERUM 0.91 MG/DL (0.60-1.30); GFR ESTIMATED > 60; GLUCOSE 97 MG/DL (70-105); SODIUM 139 MMOL/L (135-145); TOTAL PROTEIN 5.4 GM/DL (6.4-8.2)
[2020-09-08 06:30] VITALS: BP 172/81
[2020-09-08] MEDS: predniSONE 20 MG TAB PO SCH (06:51)
--- NOTE | 2020-09-08 07:08 | Progress Note ---
Standard Progress Note Progress Notes/Assess & Plan Date Seen by a Provider: Sep 08, 2020 Time Seen by a Provider: 06:45 Progress/Assessment & Plan ENT-[place] Patient seen/Evaluated FAcial Fractures -need no surgical repair-will heal no nose blowing for 2-3 weeks Ears- right ear for many years left ear-tube in place but plugged-patient really can't hear anything will come back later this morning and see if I can remove the tube, suciton out the ear adn then palce a new tube so he can at leasts hear some-will also bring a battery for his hearing aid so he can begin to use it as w ell may try and replace the tube down inthe pre-op area where I have some help and also suction probably reinaldo lbe between 11 and noon when I can make it back to do that Final Diagnosis Bialteral Facial Fractures Right Ear SEvere Loss-left ear with left INDIO Focused Exam Lactate Level 09/08/20 06:40: Lactic Acid Level 1.11 Lactic Acid Level Laboratory Tests Test 09/08/20 06:40 Lactic Acid Level 1.11 MMOL/L (0.50-2.00) AMELIA DE LA CRUZ MD Sep 08, 2020 07:08
[2020-09-08] MEDS: RT-ALBUTEROL SULF 2.5 MG/3 ML PRE-MIX VIAL INH SCH ×4 (07:17→20:28)
[2020-09-08] MEDS: RT--FLUTICASONE/SALMETEROL 113-14 (AIRDUO RespiCLICK) IH SCH ×2 (07:22→20:29)
[2020-09-08] MEDS ORDERED: NON-FORMULARY MEDICATION 1 EA EA (Guaifenesin (Mucinex) 1,200 MG) PO SCH (09:00)
[2020-09-08] MEDS ORDERED: SALMETEROL IH SCH (09:00)
[2020-09-08] MEDS ORDERED: FLUTICASONE IH SCH (09:00)
--- NOTE | 2020-09-08 09:01 | Physical Therapy Evaluation ---
PT Evaluation-General Medical Diagnosis Admission Date Sep 07, 2020 at 16:18 Medical Diagnosis: Subdural Hematoma Onset Date: Sep 05, 2020 Therapy Diagnosis Therapy Diagnosis: Generalized weakness/debility Height/Weight Height (Feet): 5 Height (Inches): 10.00 Weight (Pounds): 199 Weight (Ounces): 16.0 Precautions Precautions/Isolations: Fall Prevention, Standard Precautions Referral Physician: Regis Reason for Referral: Evaluation/Treatment Medical History Pertinent Medical History: Rheumatoid Arthritis, Smoking Reviewed History: Yes Social History Home: Single Level Current Living Status: Spouse Entry Into Home: Ramp Prior Prior Level of Function SCALE: Activities may be completed with or without assistive devices. 5-Rhkdsuymxq-zstpojq completes the activity by him/herself with no assistance from a helper. 5-Set-up or Clean-up Assistance-helper sets up or cleans up; patient completes activity. [place] assists only prior to or following the activity. 4-Supervision or Touching Assistance-helper provides verbal cues and/or to uching/steadying and/or contact guard assistance as patient completes activity. Assistance may be provided throughout the activity or intermittently. 3-Partial/Moderate Assistance-helper does LESS THAN HALF the effort. [place] lifts, holds or supports trunk or limbs, but provides less than half the effort. 2-Substantial/Maximal Assistance-helper does MORE THAN HALF the effort. [place] lifts or holds trunk or limbs and provides more than half the effort. 3-Segxgsrni-rkcnne does ALL the effort. Patient does none of the effort to complete the activity. Or, the assistance of 2 or more helpers is required for the patient to complete the activity. If activity was not attempted, code reason: 7-Patient Refused. 9-Not Applicable-not attempted and the patient did not perform the activity before the current illness, exacerbation or injury. 10-Not Attempted due to Environmental Limitations-(lack of equipment, weather restraints, etc.). 88-Not Attempted due to Medical Conditions or Safety Concerns. Bed Mobility: 6 Transfers (B,C,W/C): 6 Gait: 6 Stairs: 6 Indoor Mobility (Ambulation): Independent Stairs: Independent Prior Devices Use: Other-see list below Prior Device Use: Cane PT Evaluation-Current Subjective Patient was laying supine in bed pre tx. Patient has no ability to hear, but is able to clearly read and respond when writing out instructions. Patient reported mild pain in knees secondary to RA, and noted that his rib pain was 10/10 when he has to cough. Otherwise, he is generally sore. Patient agreed to participate in PT. Pt/Family Goals Return home with functional independence Objective Patient Orientation: Person, Place, Time, Normal For Age ROM/Strength ROM Lower Extremities WFL Strength Lower Extremities WFL (Bilateral DF 4-/5) Integumentary/Posture Bowel Incontinence: No Bladder Incontinence: No Posture Mild kyphosis Sensory Vision: Wears Glasses (Glasses broke during incident, patient is able to read writing well without glasses) Hearing: Hearing Aid/Aides (Patient has ear infection so cannot wear hearing aides at this time, he cannot hear) Sensation Right Lower Extremit: Impaired Sensation Left Lower Extremity: Intact Sensation Lower Extremities Patient reports numbness in R thigh that extends to R foot. Patient has sensation in R LE. Transfers Roll Left & Right (QC): 6 Sit to Lying (QC): 6 Lying to Sitting/Side of Bed(Q: 6 Sit to Stand (QC): 4 Chair/Bzv-hj-Bvtbm Xfer(QC): 4 Toilet Transfer (QC): 4 Car Transfer (QC): 4 SBA x1 Gait Does the Patient Walk?: Yes Mode of Locomotion: Walk Anticipated Mode of Locomotion: Walk Walk 10 feet (QC): 4 Walk 50 ft with 2 Turns(QC): 4 Walk 150 ft (QC): 4 Walking 10ft/uneven surface-QC: 4 Distance: 150'x2 Gait Assistive Device: FWW Comments/Gait Description SBA x1. Patient normally uses cane with ambulation, but notes he feels safer at this point in time using a walker. Wheelchair Training Does the Pt Use a Wheelchair?: No Wheel 50 ft with 2 turns (QC): 9 Wheel 150 ft (QC): 9 Stairs #of Steps: 4 1 Step (curb) (QC): 4 4 Steps (QC): 4 12 Steps (QC): 88 SBA x1 Balance Sitting Static: Good Sitting Dynamic: Good Standing Static: Good Standing Dynamic: Good Picking up an Object (QC): 88 Treatment LE strengthening, balance, gait training Assessment/Needs Patient will benefit from interventions with intentions of promoting functional endurance, strengthening, and mobility for safe return home with spouse. Rehab Potential: Fair PT Short Term Goals Short Term Goals Time Frame: Sep 15, 2020 Roll Left & Right: 6 Sit to lyin Lying to sitting on side of be: 6 Sit to stand: 5 Chair/ype-gu-nbnte transfer: 5 Toilet transfer: 5 Walk 10 feet: 5 Walk 50 feet with two turns: 5 Walk 150 feet: 5 Walking 10ft on uneven surface: 5 1 step (curb): 5 4 steps: 5 Picking up objects: 4 PT Research Professional Goals Mcfp Goals PT Research Professional Goals Time Frame: Oct 06, 2020 Roll Left & Right (QC): 6 Sit to Lying (QC): 6 Lying-Sitting on Side/Bed(QC): 6 Sit to Stand (QC): 6 Chair/Pqx-ia-Bfcab Xfer(QC): 6 Toilet Transfer (QC): 6 Car Transfer (QC): 6 Does the Patient Walk: Yes Walk 10 feet (QC): 6 Walk 50ft with 2 Turns (QC): 6 Walk 150 ft (QC): 6 Walking 10ft on Uneven Surface: 6 1 Step (curb) (QC): 6 4 Steps (QC): 6 12 Steps (QC): 88 Picking up an Object (QC): 6 Does the Pt use WC or Scooter?: No Wheel 50 feet with 2 turns (QC: 9 Wheel 150 feet: 9 PT Plan Problem List Problem List: Activity Tolerance, Functional Strength, Safety, Balance, Gait, Transfer, Bed Mobility, ROM Treatment/Plan Treatment Plan: Continue Plan of Care Treatment Plan: Education, Functional Activity Jose, Functional Strength, Group Therapy, Gait, Safety, Therapeutic Exercise, Transfers Treatment Duration: Oct 06, 2020 Frequency: At least 5 of 7 days/Wk (IRF) Estimated Hrs Per Day: 1.5 hours per day Patient and/or Family Agrees t: Yes Safety Risks/Education Patient Education: Gait Training, Transfer Techniques, Steps, Correct Positioning, Safety Issues Teaching Recipient: Patient Teaching Methods: Demonstration, Audiovisual Response to Teaching: Verbalize Understanding, Return Demonstration Discharge Recommendations Plan Plan to improve patient's strength, mobility, and endurance with gait to maximize functional independence. Therapy Discharge Recommendati: Home & Family Time/GCodes Time In: 0800 Time Out: 0900 Total Billed Treatment Time: 60 Total Billed Treatment 1 visit: EVM: 30' FA x2: 30' JAMES WONG PT Sep 08, 2020 09:01
[2020-09-08 09:50] VITALS: BP 152/82
[2020-09-08] MEDS: TERAZOSIN 5 MG (HYTRIN) CAPSULE PO SCH (09:51)
--- NOTE | 2020-09-08 09:51 | Occupational Therapy Eval ---
OT Evaluation-General/PLF Medical Diagnosis Admission Date Sep 07, 2020 at 16:18 Medical Diagnosis: Subdural Hematoma Onset Date: Sep 05, 2020 Therapy Diagnosis Therapy Diagnosis: weakness Height/Weight Height (Feet): 5 Height (Inches): 10.00 Weight (Pounds): 199 Weight (Ounces): 16.0 Precautions Precautions/Isolations: Fall Prevention, Standard Precautions Referral Physician: Regis Referral Reason: Evaluation/Treatment Medical History Pertinent Medical History: Rheumatoid Arthritis, Smoking Additional Medical History interstitial lung disease, emphysema, kidney stone, RA, hiatal hernia, [place] (bilateral hearing aides) Current History 09/05/20 a cow hit a metal gate, which then hit pt in the face. Resulted in facial injuries with lacerations and subdural hematoma, R 6th rib fracture. ENT consulted for bilateral air in orbits. No intervention for subdural hematoma. Bilateral ear infection. Social History Home: Single Level Current Living Status: Spouse Entry Into Home: [facility] ADL-Prior Level of Function SCALE: Activities may be completed with or without assistive devices. 6-Abpczwtbtk-xylhofc completes the activity by him/herself with no assistance from a helper. 5-Set-up or Clean-up Assistance-helper sets up or cleans up; patient completes activity. [place] assists only prior to or following the activity. 4-Supervision or Touching Assistance-helper provides verbal cues and/or touching/steadying and/or contact guard assistance as patient completes activity. Assistance may be provided throughout the activity or intermittently. 3-Partial/Moderate Assistance-helper does LESS THAN HALF the effort. [place] lifts, holds or supports trunk or limbs, but provides less than half the effort. 2-Substantial/Maximal Assistance-helper does MORE THAN HALF the effort. [place] lifts or holds trunk or limbs and provides more than half the effort. 3-Mvxuihjls-odxtyw does ALL the effort. Patient does none of the effort to complete the activity. Or, the assistance of 2 or more helpers is required for the patient to complete the activity. If activity was not attempted, code reason: 7-Patient Refused. 9-Not Applicable-not attempted and the patient did not perform the activity before the current illness, exacerbation or injury. 10-Not Attempted due to Environmental Limitations-(lack of equipment, weather restraints, etc.). 88-Not Attempted due to Medical Conditions or Safety Concerns. ADL PLOF Comments Pt independent with ADLs at PLOF, no AE. He uses a cane for functional mobility. Difficulty obtaining information about PLOF, pt is very hard of hearing. Dry erase board used for communication. Self Care: Independent Functional Cognition: Independent DME/Equipment: Bath Chair, Tub/Shower DME/Equipment Comments cane OT Current Status Subjective Pt laying in bed, agreeable to OT tx. Pt's nurse states she is unsure if pt's steristrips can get wet on his face, will need to clarify this with physician. Pt indicated his pain is "not too bad". Pt very [place], using dry erase board for communication with pt. Mental Status/Objective Patient Orientation: Person, Place, Time, Situation Current Glasses/Contacts: Yes Hearing Aids: Yes Dentures/Partials: No Hand Dominance: Right Upper Extremity ROM Decreased RUE AROM shoulder flexion, Full PROM. WFL other joints. Pt reports increased pain with shoulder flexion of RUE. LUE WFL Upper Extremity Coordination WFL Upper Extremity Sensation WFL Upper Extremity Strength RUE not tested due to 6th rib fracture. LUE grossly 3+/5 ADL-Treatment Eating (QC): 6 (Per pt report) Oral Hygiene (QC): 5 (set up) Shower/Bathe Self (QC): 4 (Pt able to wash/dry all parts, SBA in stand) Upper Body Dressing (QC): 5 (set up, pt able to doff/don button up shirt.) Lower Body Dressing (QC): 4 (SBA in stand, pt able to thread pants and perform pant hike.) On/Off Footwear (QC): 4 (SBA, pt able to doff/don gripper socks.) Toileting Hygiene (QC): 4 (SBA, pt able to manage clothing and perform hygiene) Other Treatments OT evaluation complete, pt able to answer questions OT wrote on dry erase board. Pt's nurse states she is unsure if pt's steristrips on his face can get wet, need to clarify with physician. Shower not complete on this date due to uncertainty about getting his steristrips wet, and [place] making it difficult to communicate with pt when he showered. Pt agreeable to sponge bath on this date, then UE activity in therapy gym. Pt completed oral care, sponge bath and dressing, then used FWW to ambulate to therapy gym, SBA. In order to increase BUE strength and functional activity tolerance, pt completed x15 mins on arm bike, min resistance. Pt reports some discomfort with activity, but did not complain of pain. Pt required 1 rest break with task. Pt then removed x16 beads from red theraputty in order to increase BUE fine motor strength/coordination, and activity tolerance. Pt used FWW to return to his room, SBA, transferring to bed. Post tx, pt laying in bed, call light in reach and all needs met. Education OT Patient Education: Correct positioning, Modified ADL techniques, Progress toward Goal/Update tx plan, Purpose of tx/functional activities, Rehab process Teaching Recipient: Patient Teaching Methods: Discussion Response to Teaching: Verbalize Understanding OT Short Term Goals Short Term Goals Time Frame: Sep 15, 2020 Shower/bathe self: 5 Lower body dressin Putting on/taking off footwear: 5 OT Long-Term Goals Application Performance Engineer Goals Time Frame: Sep 29, 2020 Eating (QC): 6 Oral Hygiene (QC): 6 Toileting Hygiene (QC): 6 Shower/Bathe Self (QC): 6 Upper Body Dressing (QC): 6 Lower Body Dressing (QC): 6 On/Off Footwear (QC): 6 Additional Goals: 1-Demonstrate ADL Tasks, 2-Verbalize Understanding, 3-I mproveStrength/Jose 1=Demonstrate adherence to instructed precautions during ADL tasks. 2=Patient will verbalize/demonstrate understanding of assistive devices/modifications for ADL. 3=Patient will improve strength/tolerance for activity to enable patient to perform ADL's. OT Education/Plan Problem List/Assessment Assessment: Decreased Activ Tolerance, Decreased UE Strength, Impaired Funct Balance, Impaired I ADL's, Impaired Self-Care Skills Discharge Recommendations Plan/Recommendations: Continue POC Treatment Plan/Plan of Care Patient would benefit from OT for education, treatment and training to promote independence in ADL's, mobility, safety and/or upper extremity function for ADL's. Plan of Care: ADL Retraining, Functional Mobility, Group Exercise/Act as Ind, UE Funct Exercise/Act Treatment Duration: Sep 29, 2020 Frequency: At least 5 of 7 days/Wk (IRF) Estimated Hrs Per Day: 1.5 hours per day Rehab Potential: Good Time/GCodes Start Time: 09:00 Stop Time: 10:15 Total Time Billed (hr/min): 75 Billed Treatment Time 1, EVM (10'), ADL 2 (35'), EX (15'), FA (15') ANGEL HAMMONDS OT Sep 08, 2020 09:51
[2020-09-08] MEDS: guaiFENesin (MUCINEX) 600 MG TAB PO SCH (09:52)
[2020-09-08] MEDS: CEFDINIR 300 MG (OMNICEF) CAP PO SCH ×2 (09:52→21:25)
[2020-09-08] MEDS: FINASTERIDE (PROSCAR) 5 MG TAB PO SCH (09:52)
[2020-09-08] MEDS: SENNA W/DOCUSATE (SENOKOT S) TABLET PO SCH ×2 (09:52→21:40)
[2020-09-08] MEDS ORDERED: SUCRALFATE 1 GM (CARAFATE) TAB PO ONE (10:45)
[2020-09-08] MEDS ORDERED: PANTOPRAZOLE 40 MG (PROTONIX) TAB PO NR (10:48)
--- NOTE | 2020-09-08 10:52 | Diagnostic Imaging Report ---
INDICATION: Wheezing. Chest pain. COMPARISON: 06/05/2016. FINDINGS: Frontal and lateral radiographic views of the chest were obtained and demonstrate interval increase in patchy and confluent airspace opacities within the right lung base. Left basilar airspace disease is also noted but is more suggestive of atelectasis. There is no large effusion or pneumothorax. The cardiac silhouette and pulmonary vasculature are within normal limits. The osseous structures show no gross acute abnormalities. IMPRESSION: Interval increase in right basilar airspace disease, concerning for pneumonia. Followup is advised. Dictated by: Dictated on workstation # [id number]
--- NOTE | 2020-09-08 11:06 | PM&R Progress Note ---
Subjective HPI/CC On Admission Date Seen by Provider: Sep 08, 2020 Time Seen by Provider: 11:15 Subjective/Events-last exam 09/08/20: Patient settling in well Pain about the same of the right rib fracture BM ++ today after laxatives GERD treatment requested Dr Hahn consulted Cough is productive Abx maintained Prednisone maintained PCT and LA normal Lungs better with Nebs Review of Systems General: Fatigue, Malaise Pulmonary: Dyspnea, Cough Neurological: Weakness Focused Exam Lactate Level 09/08/20 06:40: Lactic Acid Level 1.11 Objective Exam Vital Signs Vital Signs Date Time Temp Pulse Resp B/P (MAP) Pulse Ox O2 Delivery O2 Flow Rate FiO2 09/09/20 05:44 36.3 75 18 162/70 (100) 95 Room Air 09/08/20 07:23 Capillary Refill : General Appearance: No Apparent Distress, WD/WN, Chronically ill HEENT: PERRL/EOMI, Pharynx Normal, Other (severe [place], facial injuries with sutured left face) Neck: Full Range of Motion, Normal Inspection, Non Tender, Supple, Carotid Bruit Respiratory: Chest Non Tender, No Accessory Muscle Use, No Respiratory Distre ss, Crackles, Decreased Breath Sounds, Wheezing Cardiovascular: Regular Rate, Rhythm, No Edema, No Gallop, No JVD, No Murmur, Normal Peripheral Pulses Gastrointestinal: Normal Bowel Sounds, No Organomegaly, No Pulsatile Mass, Non Tender, Soft Back: Normal Inspection, No CVA Tenderness, No Vertebral Tenderness Extremity: Normal Capillary Refill, Normal Inspection, Normal Range of Motion, Non Tender, No Calf Tenderness, No Pedal Edema Neurologic/Psychiatric: Alert, Oriented x3, No Motor/Sensory Deficits, Normal Mood/Affect Skin: Normal Color, Warm/Dry Lymphatic: No Adenopathy Results/Procedures Lab Patient resulted labs reviewed. FIM Transfers Therapy Code Descriptions/Definitions Functional [place] Measure: 0=Not Assessed/NA 4=Minimal Assistance 1=Total Assistance 5=Supervision or Setup 2=Maximal Assistance 6=Modified [place] 3=Moderate Assistance 7=Complete IndependenceSCALE: Activities may be completed with or without assistive devices. 5-Sxwsgivast-coshfyg completes the activity by him/herself with no assistance from a helper. 5-Set-up or Clean-up Assistance-helper sets up or cleans up; patient completes activity. [place] assists only prior to or following the activity. 4-Supervision or Touching Assistance-helper provides verbal cues and/or touching/steadying and/or contact guard assistance as patient completes a ctivity. Assistance may be provided throughout the activity or intermittently. 3-Partial/Moderate Assistance-helper does LESS THAN HALF the effort. [place] lifts, holds or supports trunk or limbs, but provides less than half the effort. 2-Substantial/Maximal Assistance-helper does MORE THAN HALF the effort. [place] lifts or holds trunk or limbs and provides more than half the effort. 9-Zmjgusrfk-akxwnv does ALL the effort. Patient does none of the effort to complete the activity. Or, the assistance of 2 or more helpers is required for the patient to complete the activity. If activity was not attempted, code reason: 7-Patient Refused. 9-Not Applicable-not attempted and the patient did not perform the activity before the current illness, exacerbation or injury. 10-Not Attempted due to Environmental Limitations-(lack of equipment, weather restraints, etc.). 88-Not Attempted due to Medical Conditions or Safety Concerns. ADL-Treatment Eating (QC): 6 (Per pt report) Oral Hygiene (QC): 5 (set up) Shower/Bathe Self (QC): 4 (Pt able to wash/dry all parts, SBA in stand) Upper Body Dressing (QC): 5 (set up, pt able to doff/don button up shirt.) Lower Body Dressing (QC): 4 (SBA in stand, pt able to thread pants and perform pant hike.) On/Off Footwear (QC): 4 (SBA, pt able to doff/don gripper socks.) Toileting Hygiene (QC): 4 (SBA, pt able to manage clothing and perform hygiene) Assessment/Plan Assessment and Plan Assess & Plan/Chief Complaint Assessment: Facial and head trauma from steer moving gate striking head Subdural hematoma Facial fractures Bilateral OM Severe [place] RA COPD Interstitial lung disease Plan: Nebs BM regimen IRF protocol Monitor closely 09/08/20: Abx Monitor pain BM regimen Monitor closely (1) Subdural hematoma (2) Rheumatoid arthritis (3) Rales (4) Interstitial lung disease (5) Emphysema of lung (6) Orbital wall fracture (7) BPH (benign prostatic hyperplasia) DIONNE SAMUEL DO Sep 08, 2020 11:06
[2020-09-08] MEDS: SUCRALFATE 1 GM (CARAFATE) TAB PO SCH ×3 (12:37→21:25)
--- NOTE | 2020-09-08 13:24 | ST Cognitive Linguistic Eval ---
Speech Evaluation-General Medical Diagnosis Subdural Hematoma Onset Date: Sep 05, 2020 Therapy Diagnosis Therapy Diagnosis: Cognitive-communication Referral Referring Physician: Dr. Stacy Medical History Pertinent Medical History: Rheumatoid Arthritis, Smoking Social History Current Living Status: Spouse Speech PLF-Current Status Prior Level of Function Patient lives in the home with his where he is independent for his daily needs. Subjective Patient was pleasant and cooperative with the cognitive assessment. Language Eval: Auditory Comprehends Simple Yes/No Ques: Functional Indent/Objects Multiple [place]: Functional Ident/Pics in Multiple [place]: Functional Follows 1-Step Commands: Functional Follows Complex Directions: Functional Follows General Conversations: Functional Language Eval: Verbal Language Completes Spontaneous Greeting: Functional Produces Auto, Serial Info: Functional Imitates Simple Words/Phrases: Functional Word Finding: Functional Requests Basic Needs: Functional States Basic Personal Info: Functional Expresses Complex Ideas: Functional Objective Cognitive Domain Attention: Moderate Memory: WNL Problem Solving: Functional Executive Functions: WNL Visuospatial Skills: WNL Composite Severity Rating: WNL Clock Drawing Severity Rating: WNL Objective Formal/Standardized Tests [facility] Status ([facility] [place]) Results 28/30, within normal range of function Oral Motor/Speech Production Within Normal Limits Impression Patient is a pleasant 85 y/o male who was 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 Patient was given the SLUMS at bedside with a score of 28/30 obtained. This score is within normal range of function and is not indicative of further need for ST services. Speech Patient Assess Expression of Ideas/Wants: Expression (4) Understanding Verbal Content: Understands (4) Brief Interview-Mental Status: Yes Repetition of Three Words: Three (3) Temporal Orientation: Year: Correct (3) Temporal Orientation: Month: Accurate within 5 days(2) Temporal Orientation: Day: Correct (1) Recall : Wear to say "Sock": Yes, no cue required (2) Recall : Color: Yes, no cue required (2) Recall : Bed: Yes, no cue required (2) Memory/Recall Ability: Current season, That he or she is in a hsp/hsp unit Speech-Plan Patient/Family Goals Patient/Family Goals: Patient plans on returning to his home where he lives with his . Treatment Plan Speech Therapy Treatment Plan: Discontinue ST Treatment Duration: Sep 08, 2020 Frequency: 1 time per week Estimated Hrs Per Day: .5 hour per day Rehab Potential: Good Barriers to Learning: None identified other than age Pt/Family Agrees to Plan: Yes Safety Risks/Education Teaching Recipient: Patient, Family Teaching Methods: Discussion Response to Teaching: Verbalize Understanding Education Topics Provided: Safety within his room, communication of wants/needs. Patient is very [place] and requires written communication Time Speech Therapy Time In: 10:30 Speech Therapy Time Out: 11:00 Total Billed Time: 30 Billed Treatment Time 1, SYLVAINNDSILVIA Best Sep 08, 2020 13:24
--- NOTE | 2020-09-08 14:10 | Physical Therapy Daily Note ---
PT Daily Note-Current Subjective Patient reported no pain, and was seated upright in chair pre tx. Patient consented to therapy. Appearance Patient in bed post tx with nurse call, phone, tray, all needs met. Mental Status Patient Orientation: Person, Place, Time, Normal For Age Transfers SCALE: Activities may be completed with or without assistive devices. 4-Jgtgiyuckk-fwravmr completes the activity by him/herself with no assistance from a helper. 5-Set-up or Clean-up Assistance-helper sets up or cleans up; patient completes activity. [place] assists only prior to or following the activity. 4-Supervision or Touching Assistance-helper provides verbal cues and/or touching/steadying and/or contact guard assistance as patient completes activity. Assistance may be provided throughout the activity or intermittently. 3-Partial/Moderate Assistance-helper does LESS THAN HALF the effort. [place] lifts, holds or supports trunk or limbs, but provides less than half the effort. 2-Substantial/Maximal Assistance-helper does MORE THAN HALF the effort. [place] lifts or holds trunk or limbs and provides more than half the effort. 6-Pjcmiardi-scxfiv does ALL the effort. Patient does none of the effort to complete the activity. Or, the assistance of 2 or more helpers is required for the patient to complete the activity. If activity was not attempted, code reason: 7-Patient Refused. 9-Not Applicable-not attempted and the patient did not perform the activity before the current illness, exacerbation or injury. 10-Not Attempted due to Environmental Limitations-(lack of equipment, weather restraints, etc.). 88-Not Attempted due to Medical Conditions or Safety Concerns. Sit to Stand (QC): 4 Chair/Mjt-zm-Viivd Xfer(QC): 4 SBA x1 Gait Training Does the Patient Walk?: Yes Distance: 400', 100' Walk 10 feet (QC): 4 Walk 50 ft with 2 Turns(QC): 4 Walk 150 ft (QC): 4 Gait Assistive Device: FWW SBA x1 Wheelchair Training Does the Pt Use a Wheelchair?: No Exercises NuStep Minutes: 15 NuStep Workload: 3 Treatments Patient kept good pace with NuStep, had to considerably lengthen arm rest to decrease rib pain, but showed good endurance with first attempt at machine. Assessment Current Status: Good Progress Patient showed good functional endurance without need for rest break during long ambulation. PT Short Term Goals Short Term Goals Time Frame: Sep 15, 2020 Roll Left & Right: 6 Sit to lyin Lying to sitting on side of be: 6 Sit to stand: 5 Chair/fwh-sw-vccfl transfer: 5 Toilet transfer: 5 Walk 10 feet: 5 Walk 50 feet with two turns: 5 Walk 150 feet: 5 Walking 10ft on uneven surface: 5 1 step (curb): 5 4 steps: 5 Picking up objects: 4 PT Senior Care Goals Handcrew Foreman Goals PT Handcrew Foreman Goals Time Frame: Sep 29, 2020 Roll Left & Right (QC): 6 Sit to Lying (QC): 6 Lying-Sitting on Side/Bed(QC): 6 Sit to Stand (QC): 6 Chair/Zjs-oq-Aatca Xfer(QC): 6 Toilet Transfer (QC): 6 Car Transfer (QC): 6 Does the Patient Walk: Yes Walk 10 feet (QC): 6 Walk 50ft with 2 Turns (QC): 6 Walk 150 ft (QC): 6 Walking 10ft on Uneven Surface: 6 1 Step (curb) (QC): 6 4 Steps (QC): 6 12 Steps (QC): 88 Picking up an Object (QC): 6 Does the Pt use WC or Scooter?: No Wheel 50 feet with 2 turns (QC: 88 Wheel 150 feet: 88 PT Plan Problem List Problem List: Activity Tolerance, Functional Strength, Safety, Balance, Gait, Transfer, Bed Mobility, ROM Treatment/Plan Treatment Plan: Continue Plan of Care Treatment Plan: Education, Functional Activity Jose, Functional Strength, Group Therapy, Gait, Safety, Therapeutic Exercise, Transfers Treatment Duration: Oct 06, 2020 Frequency: At least 5 of 7 days/Wk (IRF) Estimated Hrs Per Day: 1.5 hours per day Patient and/or Family Agrees t: Yes Safety Risks/Education Patient Education: Gait Training, Transfer Techniques, Correct Positioning, Safety Issues Teaching Recipient: Patient Teaching Methods: Demonstration, Audiovisual Response to Teaching: Verbalize Understanding, Return Demonstration Time/GCodes Time In: 1335 Time Out: 1405 Total Billed Treatment Time: 30 Total Billed Treatment 1 visit: GT: 15' EX: 15' JAMES WONG PT Sep 08, 2020 14:10
[2020-09-08] MEDS: polyethylene glycoL POWDER 17 GM (MIRALAX) PACK PO SCH ×2 (15:28→21:40)
[2020-09-08] MEDS: guaiFENesin/CODEINE (ROBITUSSIN AC) 10ML UDC PO PRN ×2 (15:38→21:26)
[2020-09-08 16:22] VITALS: BP 128/60
[2020-09-09] MEDS: ACETAMINOPHEN 325 MG TABLET PO SCH ×6 (03:00→22:50)
[2020-09-09 05:44] VITALS: BP 162/70
[2020-09-09] MEDS: predniSONE 20 MG TAB PO SCH (06:44)
[2020-09-09] MEDS: SUCRALFATE 1 GM (CARAFATE) TAB PO SCH ×4 (06:44→21:02)
[2020-09-09] MEDS: RT-ALBUTEROL SULF 2.5 MG/3 ML PRE-MIX VIAL INH SCH ×4 (06:57→18:39)
[2020-09-09] MEDS: RT--FLUTICASONE/SALMETEROL 113-14 (AIRDUO RespiCLICK) IH SCH ×2 (06:59→18:42)
[2020-09-09] MEDS: SENNA W/DOCUSATE (SENOKOT S) TABLET PO SCH ×2 (08:15→21:10)
[2020-09-09] MEDS: guaiFENesin (MUCINEX) 600 MG TAB PO SCH (08:15)
[2020-09-09] MEDS: PANTOPRAZOLE 40 MG (PROTONIX) TAB PO SCH (08:16)
[2020-09-09] MEDS: FINASTERIDE (PROSCAR) 5 MG TAB PO SCH (08:16)
[2020-09-09] MEDS: TERAZOSIN 5 MG (HYTRIN) CAPSULE PO SCH (08:16)
[2020-09-09] MEDS: CEFDINIR 300 MG (OMNICEF) CAP PO SCH ×2 (08:16→21:02)
[2020-09-09] MEDS: polyethylene glycoL POWDER 17 GM (MIRALAX) PACK PO SCH ×2 (08:18→21:10)
--- NOTE | 2020-09-09 08:37 | Physical Therapy Daily Note ---
PT Daily Note-Current Subjective Agrees to PT. Agrees to shower this date. No complaints. Mental Status Patient Orientation: Person, Place, Time, Situation Transfers SCALE: Activities may be completed with or without assistive devices. 0-Dilecgtrzq-ewdomkd completes the activity by him/herself with no assistance from a helper. 5-Set-up or Clean-up Assistance-helper sets up or cleans up; patient completes a ctivity. [place] assists only prior to or following the activity. 4-Supervision or Touching Assistance-helper provides verbal cues and/or touching/steadying and/or contact guard assistance as patient completes activity. Assistance may be provided throughout the activity or intermittently. 3-Partial/Moderate Assistance-helper does LESS THAN HALF the effort. [place] lifts, holds or supports trunk or limbs, but provides less than half the effort. 2-Substantial/Maximal Assistance-helper does MORE THAN HALF the effort. [place] lifts or holds trunk or limbs and provides more than half the effort. 5-Xfyqjcwbo-ndelyu does ALL the effort. Patient does none of the effort to complete the activity. Or, the assistance of 2 or more helpers is required for the patient to complete the activity. If activity was not attempted, code reason: 7-Patient Refused. 9-Not Applicable-not attempted and the patient did not perform the activity before the current illness, exacerbation or injury. 10-Not Attempted due to Environmental Limitations-(lack of equipment, weather restraints, etc.). 88-Not Attempted due to Medical Conditions or Safety Concerns. Sit to Lying (QC): 4 Lying to Sitting/Side of Bed(Q: 4 Sit to Stand (QC): 3 (SB-CGA for safety.) Chair/Yob-ce-Owsui Xfer(QC): 3 (SB to CGA for safety) Toilet Transfer (QC): 4 Gait Training Walk 150 ft (QC): 4 (FWW; wide DEVIN; unsteady with turning at times. ) Gait Assistive Device: FWW Pt ambulated several bouts ranging from 50 to 200 ft with FWW. Exercises Standing: Heel/toe raises, Marching, Mini squats Standing Reps: 15 (LE strength to promote gait and transfers. ) Treatments Co treat with OT. The skill of 2 clinicians indicated due to the need for cueing, assist with UE placement use as well as upright dynamic mobility. Pt [place] and requires verbal and tactile cues to complete tasks. Pt is slightly impulsive with upright activities, as he is used to doing everything for himself. OT directed UE activities for self care of bathing/dressing as PT addressed multiple sit to stand transfers; SPT and mobiltiy between tasks. Pt also performed dynamic activitiy to include reciprocal U/LE activities to promote functional safety with all mobility. This therapy session addressed safe mobility with all self care, functional transfers, balance, gait progression with the goal to return home and care for himself at a mod indep level. Coordinated many activities to address his current deficits. Pt is somewhat impulsvie and very [place], thus 2 clinicians are effective in the treatment to optimize safety and functional mobility. Assessment Current Status: Good Progress Pt is cooperative and pleasant. Follows cues with written, verbal and tactile direction. PT Short Term Goals Short Term Goals Time Frame: Sep 15, 2020 Roll Left & Right: 6 Sit to lyin Lying to sitting on side of be: 6 Sit to stand: 5 Chair/ton-ml-zqbvl transfer: 5 Toilet transfer: 5 Walk 10 feet: 5 Walk 50 feet with two turns: 5 Walk 150 feet: 5 Walking 10ft on uneven surface: 5 1 step (curb): 5 4 steps: 5 Picking up objects: 4 PT Gate Keeper Goals Longterm Goals PT Gate Keeper Goals Time Frame: Oct 06, 2020 Roll Left & Right (QC): 6 Sit to Lying (QC): 6 Lying-Sitting on Side/Bed(QC): 6 Sit to Stand (QC): 6 Chair/Ttx-op-Mtgla Xfer(QC): 6 Toilet Transfer (QC): 6 Car Transfer (QC): 6 Does the Patient Walk: Yes Walk 10 feet (QC): 6 Walk 50ft with 2 Turns (QC): 6 Walk 150 ft (QC): 6 Walking 10ft on Uneven Surface: 6 1 Step (curb) (QC): 6 4 Steps (QC): 6 12 Steps (QC): 88 Picking up an Object (QC): 6 Does the Pt use WC or Scooter?: No Wheel 50 feet with 2 turns (QC: 9 Wheel 150 feet: 9 PT Plan Problem List Problem List: Activity Tolerance, Functional Strength, Safety, Balance, Gait, Transfer, Bed Mobility Treatment/Plan Treatment Plan: Continue Plan of Care Treatment Plan: Education, Functional Activity Jose, Functional Strength, Group Therapy, Gait, Safety, Therapeutic Exercise, Transfers Treatment Duration: Oct 06, 2020 Frequency: At least 5 of 7 days/Wk (IRF) Estimated Hrs Per Day: 1.5 hours per day Patient and/or Family Agrees t: Yes Safety Risks/Education Patient Education: Gait Training, Transfer Techniques, Safety Issues Teaching Recipient: Patient Teaching Methods: Demonstration, Discussion Response to Teaching: Return Demonstration, Reinforcement Needed Discharge Recommendations Therapy Discharge Recommendati: Post Acute PT Time/GCodes Time In: 800 Time Out: 900 (910-930) Total Billed Treatment Time: 80 Total Billed Treatment visit FA 80 Co treat 80 min ZULEIMA BADILLO PT Sep 09, 2020 08:37
--- NOTE | 2020-09-09 09:29 | Occupational Ther Daily Note ---
OT Current Status-Daily Note Subjective Pt. reports light pain in right chest, in rib area. Declines pain medication at this time. Appearance Pt. up sitting on side of bed. Agrees to treatment. Mental Status/Objective Patient Orientation: Person, Place ADL-Treatment Therapy Code Descriptions/Definitions Functional [place] Measure: 0=Not Assessed/NA 4=Minimal Assistance 1=Total Assistance 5=Supervision or Setup 2=Maximal Assistance 6=Modified [place] 3=Moderate Assistance 7=Complete IndependenceSCALE: Activities may be completed with or without assistive devices. 7-Mkejyouawg-zyhliiw completes the activity by him/herself with no assistance from a helper. 5-Set-up or Clean-up Assistance-helper sets up or cleans up; patient completes activity. [place] assists only prior to or following the activity. 4-Supervision or Touching Assistance-helper provides verbal cues and/or touching/steadying and/or contact guard assistance as patient completes activity. Assistance may be provided throughout the activity or intermittently. 3-Partial/Moderate Assistance-helper does LESS THAN HALF the effort. [place] lifts, holds or supports trunk or limbs, but provides less than half the effort. 2-Substantial/Maximal Assistance-helper does MORE THAN HALF the effort. [place] lifts or holds trunk or limbs and provides more than half the effort. 8-Mwfexgufk-xwaouq does ALL the effort. Patient does none of the effort to complete the activity. Or, the assistance of 2 or more helpers is required for the patient to complete the activity. If activity was not attempted, code reason: 7-Patient Refused. 9-Not Applicable-not attempted and the patient did not perform the activity before the current illness, exacerbation or injury. 10-Not Attempted due to Environmental Limitations-(lack of equipment, weather restraints, etc.). 88-Not Attempted due to Medical Conditions or Safety Concerns. Eating (QC): 6 Oral Hygiene (QC): 4 (CGA standing at sink to brush teeth.) Shower/Bathe Self (QC): 4 (CGA in stance in shower for dynamic standing balance.) Upper Body Dressing (QC): 5 Lower Body Dressing (QC): 4 (CGA in stance to don pants over hips. Pt. requires increased time to cake puller hips, as ribs are sore and he has to strain somewhat.) On/Off Footwear: 4 Toileting Hygiene (QC): 4 Toilet Transfer (QC): 4 Other Treatment Pt. completed co-treatment with PT due to low endurance, decreased dynamic standing balance at times, and occasional impulsivity. PT focused on mobility and transfers while OT assessed ADL skills. Pt. very [place] and requires all communication to be hand written. Pt. agrees to shower and dress, as well as perform grooming tasks at sink. Pt. will walk away from walker during standing activity, and requires cues and visual re-direction. Ambulated with walker and CGA to therapy gym. Participated in bilateral UE/LE strengthening activities with reciprocal movements, for continued strengthening. Pt. slightly guarded with UE gross motor due to rib pain. Pt. had tylenol earlier, but declines further pain medication. When PT left treatment, pt. completed 10 minutes on arm bike for further endurance training, at min resistance. Pt. ambulated back to room with CGA, with all needs met. Education OT Patient Education: Correct positioning, Exercise program, Modified ADL techniques, Progress toward Goal/Update tx plan, Purpose of tx/functional activities, Reviewed precautions, Rehab process, Transfer techniques Teaching Recipient: Patient Teaching Methods: Demonstration, Handout, Discussion Response to Teaching: Verbalize Understanding, Return Demonstration, Reinforcement Needed OT Short Term Goals Short Term Goals Time Frame: Sep 15, 2020 Shower/bathe self: 5 Lower body dressin Putting on/taking off footwear: 5 OT Blown Film Extrusion Operator Goals Blown Film Extrusion Operator Goals Time Frame: Sep 29, 2020 Eating (QC): 6 Oral Hygiene (QC): 6 Toileting Hygiene (QC): 6 Shower/Bathe Self (QC): 6 Upper Body Dressing (QC): 6 Lower Body Dressing (QC): 6 On/Off Footwear (QC): 6 Additional Goals: 1-Demonstrate ADL Tasks, 2-Verbalize Understanding, 3- ImproveStrength/Jose 1=Demonstrate adherence to instructed precautions during ADL tasks. 2=Patient will verbalize/demonstrate understanding of assistive devices/modifications for ADL. 3=Patient will improve strength/tolerance for activity to enable patient to perform ADL's. OT Education/Plan Problem List/Assessment Assessment: Decreased Activ Tolerance, Impaired I ADL's, Impaired Self-Care Skills Discharge Recommendations Plan/Recommendations: Continue POC Treatment Plan/Plan of Care Treatment,Training & Education: Yes Patient would benefit from OT for education, treatment and training to promote independence in ADL's, mobility, safety and/or upper extremity function for ADL's. Plan of Care: ADL Retraining, Functional Mobility, Group Exercise/Act as Ind, UE Funct Exercise/Act Treatment Duration: Sep 29, 2020 Frequency: At least 5 of 7 days/Wk (IRF) Estimated Hrs Per Day: 1.5 hours per day Agreement: Yes Rehab Potential: Good Time/GCodes Start Time: 08:00 Stop Time: 09:50 Total Time Billed (hr/min): 100 Billed Treatment Time 3143-0697 1, ADL x [id number]-Ia-uldopobyo with PT 2296-8815 1, FA x [id number]-Mb-yrtybxror with PT [id number] Ex x 20minutes Please see above note for designated roles. CARLITA HOWELL OT Sep 09, 2020 09:29
[2020-09-09] MEDS: GENTAMICIN 0.3% OPHTH SOLN 5 ML LEFT EAR SCH ×3 (09:56→21:02)
--- NOTE | 2020-09-09 10:32 | Diagnostic Imaging Report ---
EXAMINATION: CT head without contrast. TECHNIQUE: Multiple contiguous axial images were obtained through the brain without the use of intravenous contrast. All CT scans use one or more of the following dose optimizing techniques: automated exposure control, MA and/or KvP adjustment based on a patient size and exam type, or iterative reconstruction. HISTORY: Trauma COMPARISON: None available. FINDINGS: The shah-white matter differentiation is normal. No mass effect or midline shift. The ventricles are normal in size and configuration. Basilar cisterns are patent. There are no intra- or extra-axial fluid collections. There is a small right parafalcine subdural hematoma. There are bilateral lamina papyracea deformities likely representing old fractures with a small amount of gas in the retro-bulbar soft tissues on the right. There is severe bilateral maxillary sinus disease with bilateral maxillary antrostomies. Ethmoid air cells are also opacified. Mastoid air cells are clear. No soft tissue abnormality is seen. No osseus lesions or fractures are seen. There is debris within the left middle ear. There is a mastoid air cell effusion on the left. No temporal bone fracture is seen. IMPRESSION: 1. Small right parafalcine subdural hematoma. 2. Left middle ear and left mastoid air debris without temporal bone fracture seen. 3. Bilateral lamina papyracea deformities likely representing old fractures with extensive sinus disease. CRITICAL FINDINGS: Attempted a call to the patient's doctor. I was able to reach the patient's nurse who reported that the patient has a known subdural hematoma for which they were transferred to this facility for further management of. Dictated by: Dictated on workstation # [id number]
--- NOTE | 2020-09-09 12:32 | Individualized Plan of Care ---
Individualized Plan of Care Rehab Nursing IPOC Order Admission Date Sep 07, 2020 at 16:18 Current Orders Orders Nursing Communication (Order) (09/07/20 13:51) Admission Arrival Bed Request (09/07/20 16:18) Heart Healthy (09/07/20 Lunch) Albuterol Pre-Mix Nebs (Rt) (Proventil (09/07/20 18:00) Finasteride Tablet (Proscar Tablet) (09/08/20 09:00) Prednisone Tablet (Deltasone Tablet) (09/08/20 07:00) Terazosin Capsule (Hytrin Capsule) (09/08/20 09:00) (Nf) Acetaminophen (Tylenol 8 Hour) (09/07/20 18:00) (Nf) Cefuroxime Axetil (Cefuroxime) (09/07/20 21:00) (Nf) Fluticasone/Salmeterol (Advair 250- (09/08/20 09:00) (Nf) Guaifenesin (Mucinex) (09/08/20 09:00) Guaifenesin Tablet (Mucinex Tablet) (09/08/20 09:00) Fluticasone/Salmeterol 113-14 (Airduo Re (09/07/20 21:00) Cefdinir Capsule (Omnicef Capsule) (09/07/20 21:00) Admission Order(Inpt,Obs,Sdc) (09/07/20 18:39) Jose Roberto Brito (09/07/20 18:39) Sequential Compression Device .admit (09/07/20 18:39) Special Event Assistant-Inpt Rehab Con (09/07/20 18:39) Rehab Nursing Orders-Ipoc (09/07/20 18:39) Physical Therapy Rehab Orders (09/07/20 18:39) Occupational Therapy Rehab Ord (09/07/20 18:39) Speech Therapy Rehab Orders (09/07/20 18:39) Cbc With Automated Diff (09/08/20 06:00) Comprehensive Metabolic Panel (09/08/20 06:00) Intake & Output 06,14,22 (09/07/20 18:39) Precautions (Aru) (09/07/20 18:39) Weekly Weight WEEK (09/07/20 18:39) Rehab-Intensity Of Therapy (09/07/20 18:39) Initiate Admission Nursing Pro .admission (09/07/20 18:39) Acetaminophen Tablet/Caplet (Tylenol T (09/07/20 18:45) Alprazolam Tablet (Xanax Tablet) (09/07/20 18:45) Calcium Carbonate Chew Tablet (Antacid C (09/07/20 18:45) Diphenhydramine Tablet (Benadryl Tablet) (09/07/20 18:45) Docusate Sodium Capsule (Colace Capsule) (09/07/20 18:45) Bisacodyl Suppository (Dulcolax Supposit (09/07/20 18:45) Lactulose Oral Solution (Enulose Oral So (09/07/20 18:45) Na Phos/Na Biphos Enema (Fleet Enema Jorge (09/07/20 18:45) Guaifenesin/Codeine Syrup (Robitussin Ac (09/07/20 18:45) Loperamide Tablet (Imodium Tablet) (09/07/20 18:45) Enoxaparin Injection (Lovenox Injection) (09/07/20 18:45) Melatonin Tablet (Melatonin Tablet) (09/07/20 18:45) Polyethylene Glycol Powder Pkt (Miralax (09/07/20 21:00) Ondansetron Oral Dissolve Tab (Zofran (09/07/20 18:45) Senna S Tablet (Senokot S Tablet) (09/07/20 21:00) Initiate Admission Nursing Pro .admission (09/07/20 18:39) Code/Resuscitation (09/07/20 18:39) Polyethylene Glycol Powder Pkt (Miralax (09/07/20 18:45) Senna S Tablet (Senokot S Tablet) (09/07/20 18:45) Lactulose Oral Solution (Enulose Oral So (09/07/20 18:45) Albuterol Pre-Mix Nebs (Rt) (Proventil (09/07/20 18:45) Svn Small Volume Nebulizer (09/07/20 18:39) Albuterol Pre-Mix Nebs (Rt) (Proventil (09/07/20 18:45) Svn Small Volume Nebulizer (09/07/20 18:39) Chest Pa/Lat (2 View) (09/08/20 08:00) Procalcitonin (Pct) (09/08/20 06:00) Acetaminophen Tablet/Caplet (Tylenol T (09/07/20 19:00) Incentive Spirometry (Nursing) Q2H (09/07/20 18:48) Incentive Spirometry Initial (09/07/20 18:48) Consult Physician (09/07/20 19:25) Vte Contraindication (09/07/20 19:25) Consult Pulmonology (09/08/20 06:24) Lactic Acid Analyzer (09/08/20 06:25) Pantoprazole Tablet (Protonix Tablet) (09/08/20 10:48) Pantoprazole Tablet (Protonix Tablet) (09/09/20 09:00) Sucralfate Tablet (Carafate Tablet) (09/08/20 11:00) Patient Visit (09/08/20 ) Speech Sound Lang Comp (09/08/20 ) Gentamicin 0.3% Ophth Solution (Garamyci (09/09/20 09:00) Ct Head Wo (09/09/20 09:00) Patient Visit (09/08/20 ) Pt Eval Moderate Complexity (09/08/20 ) Functional Activities, Ea 15 (09/08/20 ) Patient Visit (09/08/20 ) Exercise Therap, Ea 15 Min (09/08/20 ) Gait Training, Ea 15 Min (09/08/20 ) Patient Visit (09/09/20 ) Functional Activities, Ea 15 (09/09/20 ) Hydrocodone/Apap 5/325 Tablet (Lortab 5 (09/09/20 12:30) Nothing By Mouth (09/11/20 Breakfast) Consent-Obtain Consent For (09/10/20 14:08) Preop Checklist (09/09/20 14:08) Rehab Nursing Orders: Ongoing Assess. of Cognitive Status, Ongoing Assess. of Function Status, Bladder Management, Bladder Scan, Bladder Training, Bowel Management, Bowel Training, Disease Management & Educaiton, DVT Prophylaxis, Fall Prevention, Fluid/Electrolyte/Nutrition Mgmt, Infection Prevention, Medication Management & Education, Management of Risks & Complications, Management of Skin Intergrity, Nutrition Management, Pain Management, Patient/Family Support, Safety Management, Swallow Precautions Intensity of Therapy to be met Patient to be seen: Min.3h per day/5 of 7d PT IPOC Problem List: Activity Tolerance, Functional Strength, Safety, Balance, Gait, Transfer, Bed Mobility Treatment Plan: Continue Plan of Care Education, Functional Activity Jose, Functional Strength, Group Therapy, Gait, Safety, Therapeutic Exercise, Transfers Treatment Duration: Oct 06, 2020 Frequency: At least 5 of 7 days/Wk (IRF) Estimated Hrs Per Day: 1.5 hours per day OT IPOC Problems: Decreased Activ Tolerance, Impaired I ADL's, Impaired Self-Care Skills OT Treatment, Training and Edu: Yes Plan of Care: ADL Retraining, Functional Mobility, Group Exercise/Act as Ind, UE Funct Exercise/Act Treatment Duration: Sep 29, 2020 Frequency: At least 5 of 7 days/Wk (IRF) Estimated Hrs Per Day: 1.[address] IPOC Speech Therapy Treatment Plan: Discontinue ST Treatment Duration: Sep 08, 2020 Frequency: 1 time per week Estimated Hrs Per Day: .5 hour per day Special Event Assistant/Case Mgmt Special Event Assistant/Case Managemen: Discharge Planning Dietitian/Bacon Skin Lifter Dietitian/Bacon Skin Lifter to monitor nutritional status and make changes and/or recommendations as needed and work with speech pathology on dietary upgrades as the occur. 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 Medical Issues: Bowel/Bladder Function, DVT Prophylaxis, Falls Precautions, Fluid/Electrolyte/Nutrition Balance, Infection Protection, Pain Management Brief Synthesis of Preadmission Screen, Post-Admission Evaluation, and Therapy Evaluations: PT OT will focus on regaining function and fall prevention and work on ambulatory skills and increase independence of ADL's Medical Prognosis: Good Anticipated Length of Stay: 7 days DIONNE SAMUEL DO Sep 09, 2020 12:32
--- NOTE | 2020-09-09 12:32 | PM&R Progress Note ---
Subjective HPI/CC On Admission Date Seen by Provider: Sep 09, 2020 Time Seen by Provider: 12:40 Subjective/Events-last exam 09/09/20: Patient doing better Less dyspnea and cough Dr Hahn saw him today and will take him to OR for a sedated surgery on Friday to remove debris causing hearing loss IS used Eye drops ordered CT scan subdural noted on CT 09/08/20: Patient settling in well Pain about the same of the right rib fracture BM ++ today after laxatives GERD treatment requested Dr Hahn consulted Cough is productive Abx maintained Prednisone maintained PCT and LA normal Lungs better with Nebs Review of Systems General: Fatigue, Malaise Neurological: Weakness Focused Exam Lactate Level 09/08/20 06:40: Lactic Acid Level 1.11 Objective Exam Vital Signs Vital Signs Date Time Temp Pulse Resp B/P (MAP) Pulse Ox O2 Delivery O2 Flow Rate FiO2 09/10/20 05:51 36.6 82 17 163/79 (107) 93 Room Air 09/08/20 07:23 Capillary Refill : General Appearance: No Apparent Distress, WD/WN, Chronically ill HEENT: PERRL/EOMI, Pharynx Normal, Other (severe WRANGELL, facial injuries with sutured left face) Neck: Full Range of Motion, Normal Inspection, Non Tender, Supple, Carotid Bruit Respiratory: Chest Non Tender, No Accessory Muscle Use, No Respiratory Distress, Crackles, Decreased Breath Sounds, Wheezing Cardiovascular: Regular Rate, Rhythm, No Edema, No Gallop, No JVD, No Murmur, Normal Peripheral Pulses Gastrointestinal: Normal Bowel Sounds, No Organomegaly, No Pulsatile Mass, Non Tender, Soft Back: Normal Inspection, No CVA Tenderness, No Vertebral Tenderness Extremity: Normal Capillary Refill, Normal Inspection, Normal Range of Motion, Non Tender, No Calf Tenderness, No Pedal Edema Neurologic/Psychiatric: Alert, Oriented x3, No Motor/Sensory Deficits, Normal Mood/Affect Skin: Normal Color, Warm/Dry Lymphatic: No Adenopathy Results/Procedures Lab Patient resulted labs reviewed. FIM Transfers Therapy Code Descriptions/Definitions Functional [place] Measure: 0=Not Assessed/NA 4=Minimal Assistance 1=Total Assistance 5=Supervision or Setup 2=Maximal Assistance 6=Modified [place] 3=Moderate Assistance 7=Complete IndependenceSCALE: Activities may be completed with or without assistive devices. 4-Fbbdrjjrzv-zavvyfd completes the activity by him/herself with no assistance from a helper. 5-Set-up or Clean-up Assistance-helper sets up or cleans up; patient completes activity. [place] assists only prior to or following the activity. 4-Supervision or Touching Assistance-helper provides verbal cues and/or touching/steadying and/or contact guard assistance as patient completes activity. Assistance may be provided throughout the activity or intermittently. 3-Partial/Moderate Assistance-helper does LESS THAN HALF the effort. [place] lifts, holds or supports trunk or limbs, but provides less than half the effort. 2-Substantial/Maximal Assistance-helper does MORE THAN HALF the effort. [place] lifts or holds trunk or limbs and provides more than half the effort. 8-Zqdrjaxcz-xurkti does ALL the effort. Patient does none of the effort to complete the activity. Or, the assistance of 2 or more helpers is required for the patient to complete the activity. If activity was not attempted, code reason: 7-Patient Refused. 9-Not Applicable-not attempted and the patient did not perform the activity before the current illness, exacerbation or injury. 10-Not Attempted due to Environmental Limitations-(lack of equipment, weather restraints, etc.). 88-Not Attempted due to Medical Conditions or Safety Concerns. Sit to Lying (QC): 4 Sit to Stand (QC): 3 (SB-CGA for safety.) Chair/Gea-fg-Zgacx Xfer(QC): 3 (SB to CGA for safety) Car Transfer (QC): 4 Gait Training Does the Patient Walk?: Yes Distance: 400', 100' Walk 10 feet (QC): 4 Walk 50 ft with 2 Turns(QC): 4 Walk 150 ft (QC): 4 (FWW; wide DEVIN; unsteady with turning at times. ) Walking 10ft/uneven surface-QC: 4 Gait Assistive Device: FWW Wheelchair Training Does the Pt Use a Wheelchair?: No Wheel 50 ft with 2 turns (QC): 9 Wheel 150 ft (QC): 9 Stair Training #of Steps: 4 1 Step (curb) (QC): 4 4 Steps (QC): 4 12 Steps (QC): 88 Balance Picking up an Object (QC): 88 ADL-Treatment Eating (QC): 6 Oral Hygiene (QC): 4 (CGA standing at sink to brush teeth.) Shower/Bathe Self (QC): 4 (CGA in stance in shower for dynamic standing balance.) Upper Body Dressing (QC): 5 Lower Body Dressing (QC): 4 (CGA in stance to don pants over hips. Pt. requires increased time to slab puller hips, as ribs are sore and he has to strain somewhat.) On/Off Footwear (QC): 4 Toileting Hygiene (QC): 4 Toilet Transfer (QC): 4 Assessment/Plan Assessment and Plan Assess & Plan/Chief Complaint Assessment: Facial and head trauma from steer moving gate striking head Subdural hematoma Facial fractures Bilateral OM Severe WRANGELL RA COPD Interstitial lung disease Plan: Nebs BM regimen IRF protocol Monitor closely 09/08/20: Abx Monitor pain BM regimen Monitor closely 09/09/20: Dr Hahn appreciated Friday procedure to help hearing loss Monitor lungs (1) Subdural hematoma (2) Rheumatoid arthritis (3) Rales (4) Interstitial lung disease (5) Emphysema of lung (6) Orbital wall fracture (7) BPH (benign prostatic hyperplasia) DIONNE SAMUEL DO Sep 09, 2020 12:32
[2020-09-09] MEDS: HYDROcodone/APAP 5 MG/325 MG (LORTAB) TAB PO PRN ×2 (13:26→21:03)
[2020-09-09 17:20] VITALS: BP 137/64
[2020-09-09] MEDS: guaiFENesin/CODEINE (ROBITUSSIN AC) 10ML UDC PO PRN (21:02)
[2020-09-10] MEDS: ACETAMINOPHEN 325 MG TABLET PO SCH ×6 (03:00→23:29)
[2020-09-10 05:51] VITALS: BP 163/79
[2020-09-10] MEDS: predniSONE 20 MG TAB PO SCH (06:21)
[2020-09-10] MEDS: SUCRALFATE 1 GM (CARAFATE) TAB PO SCH ×4 (06:21→21:17)
[2020-09-10] MEDS: HYDROcodone/APAP 5 MG/325 MG (LORTAB) TAB PO PRN (06:22)
[2020-09-10] MEDS: RT-ALBUTEROL SULF 2.5 MG/3 ML PRE-MIX VIAL INH SCH ×4 (06:59→18:47)
[2020-09-10] MEDS: RT--FLUTICASONE/SALMETEROL 113-14 (AIRDUO RespiCLICK) IH SCH ×2 (06:59→18:48)
[2020-09-10] MEDS: polyethylene glycoL POWDER 17 GM (MIRALAX) PACK PO SCH ×2 (07:55→21:19)
[2020-09-10] MEDS: CEFDINIR 300 MG (OMNICEF) CAP PO SCH ×2 (09:06→21:17)
[2020-09-10] MEDS: TERAZOSIN 5 MG (HYTRIN) CAPSULE PO SCH (09:06)
[2020-09-10] MEDS: guaiFENesin (MUCINEX) 600 MG TAB PO SCH (09:06)
[2020-09-10] MEDS: FINASTERIDE (PROSCAR) 5 MG TAB PO SCH (09:06)
[2020-09-10] MEDS: PANTOPRAZOLE 40 MG (PROTONIX) TAB PO SCH (09:06)
[2020-09-10] MEDS: GENTAMICIN 0.3% OPHTH SOLN 5 ML LEFT EAR SCH ×3 (09:07→21:17)
[2020-09-10] MEDS: SENNA W/DOCUSATE (SENOKOT S) TABLET PO SCH ×2 (09:07→21:22)
--- NOTE | 2020-09-10 14:08 | PM&R Progress Note ---
Subjective HPI/CC On Admission Date Seen by Provider: Sep 10, 2020 Time Seen by Provider: 14:15 Subjective/Events-last exam 09/10/20: Patient doing well Coarse upper bronchial sounds No pain reported IS use has increased Mucomyst Nebs will be used Dr Hahn will take him to OR tomorrow brief sedation for ears 09/09/20: Patient doing better Less dyspnea and cough Dr Hahn saw him today and will take him to OR for a sedated surgery on Friday to remove debris causing hearing loss IS used Eye drops ordered CT scan subdural noted on CT 09/08/20: Patient settling in well Pain about the same of the right rib fracture BM ++ today after laxatives GERD treatment requested Dr Hahn consulted Cough is productive Abx maintained Prednisone maintained PCT and LA normal Lungs better with Nebs Review of Systems General: Fatigue, Malaise HEENT: Ear Pain Neurological: Weakness Focused Exam Lactate Level 09/08/20 06:40: Lactic Acid Level 1.11 Objective Exam Vital Signs Vital Signs Date Time Temp Pulse Resp B/P (MAP) Pulse Ox O2 Delivery O2 Flow Rate FiO2 09/10/20 16:02 37.0 76 16 138/61 (86) 90 09/10/20 09:00 Room Air 09/08/20 07:23 Capillary Refill : General Appearance: No Apparent Distress, WD/WN, Chronically ill HEENT: PERRL/EOMI, Pharynx Normal, Other (severe SA[place]IATT[place], facial injuries with sutured left face) Neck: Full Range of Motion, Normal Inspection, Non Tender, Supple, Carotid Bruit Respiratory: Chest Non Tender, No Accessory Muscle Use, No Respiratory Distress, Crackles, Decreased Breath Sounds, Wheezing Cardiovascular: Regular Rate, Rhythm, No Edema, No Gallop, No JVD, No Murmur, Normal Peripheral Pulses Gastrointestinal: Normal Bowel Sounds, No Organomegaly, No Pulsatile Mass, Non Tender, Soft Back: Normal Inspection, No CVA Tenderness, No Vertebral Tenderness Extremity: Normal Capillary Refill, Normal Inspection, Normal Range of Motion, Non Tender, No Calf Tenderness, No Pedal Edema Neurologic/Psychiatric: Alert, Oriented x3, No Motor/Sensory Deficits, Normal Mood/Affect Skin: Normal Color, Warm/Dry Lymphatic: No Adenopathy Results/Procedures Lab Patient resulted labs reviewed. FIM Transfers Therapy Code Descriptions/Definitions Functional [place] Measure: 0=Not Assessed/NA 4=Minimal Assistance 1=Total Assistance 5=Supervision or Setup 2=Maximal Assistance 6=Modified [place] 3=Moderate Assistance 7=Complete IndependenceSCALE: Activities may be completed with or without assistive devices. 5-Rdutrkrwts-nuthsee completes the activity by him/herself with no assistance from a helper. 5-Set-up or Clean-up Assistance-helper sets up or cleans up; patient completes activity. [place] assists only prior to or following the activity. 4-Supervision or Touching Assistance-helper provides verbal cues and/or touching/steadying and/or contact guard assistance as patient completes activity. Assistance may be provided throughout the activity or intermittently. 3-Partial/Moderate Assistance-helper does LESS THAN HALF the effort. [place] lifts, holds or supports trunk or limbs, but provides less than half the effort. 2-Substantial/Maximal Assistance-helper does MORE THAN HALF the effort. [place] lifts or holds trunk or limbs and provides more than half the effort. 8-Ckukmjerf-rcespr does ALL the effort. Patient does none of the effort to compl ete the activity. Or, the assistance of 2 or more helpers is required for the patient to complete the activity. If activity was not attempted, code reason: 7-Patient Refused. 9-Not Applicable-not attempted and the patient did not perform the activity before the current illness, exacerbation or injury. 10-Not Attempted due to Environmental Limitations-(lack of equipment, weather restraints, etc.). 88-Not Attempted due to Medical Conditions or Safety Concerns. Sit to Lying (QC): 4 Sit to Stand (QC): 3 (SB-CGA for safety.) Chair/Qgi-ny-Jwbea Xfer(QC): 3 (SB to CGA for safety) Car Transfer (QC): 4 Gait Training Does the Patient Walk?: Yes Distance: 400', 100' Walk 10 feet (QC): 4 Walk 50 ft with 2 Turns(QC): 4 Walk 150 ft (QC): 4 (FWW; wide DEVIN; unsteady with turning at times. ) Walking 10ft/uneven surface-QC: 4 Gait Assistive Device: FWW Wheelchair Training Does the Pt Use a Wheelchair?: No Wheel 50 ft with 2 turns (QC): 9 Wheel 150 ft (QC): 9 Stair Training #of Steps: 4 1 Step (curb) (QC): 4 4 Steps (QC): 4 12 Steps (QC): 88 Balance Picking up an Object (QC): 88 ADL-Treatment Eating (QC): 6 Oral Hygiene (QC): 4 (CGA standing at sink to brush teeth.) Shower/Bathe Self (QC): 4 (CGA in stance in shower for dynamic standing bal ance.) Upper Body Dressing (QC): 5 Lower Body Dressing (QC): 4 (CGA in stance to don pants over hips. 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, as ribs are sore and he has to strain somewhat.) On/Off Footwear (QC): 4 Toileting Hygiene (QC): 4 Toilet Transfer (QC): 4 Assessment/Plan Assessment and Plan Assess & Plan/Chief Complaint Assessment: Facial and head trauma from steer moving gate striking head Subdural hematoma Facial fractures Bilateral OM Severe SAUK-SUIATTLE RA COPD Interstitial lung disease Plan: Nebs BM regimen IRF protocol Monitor closely 09/08/20: Abx Monitor pain BM regimen Monitor closely 09/09/20: Dr Hahn appreciated Friday procedure to help hearing loss Monitor lungs 09/10/20: Monitor BP Mucomyst nebs Monitor pain (1) Subdural hematoma (2) Rheumatoid arthritis (3) Rales (4) Interstitial lung disease (5) Emphysema of lung (6) Orbital wall fracture (7) BPH (benign prostatic hyperplasia) DIONNE SAMUEL DO Sep 10, 2020 14:08
[2020-09-10] MEDS: aCETylcysteine 20% (MUCOMYST) 30ML SOLN VIAL PO SCH (15:00)
[2020-09-10 16:02] VITALS: BP 138/61
[2020-09-11] MEDS: aCETylcysteine 20% (MUCOMYST) 30ML SOLN VIAL PO SCH ×2 (02:27→14:46)
[2020-09-11] MEDS: ACETAMINOPHEN 325 MG TABLET PO SCH ×6 (03:03→23:23)
[2020-09-11 05:06] LABS: BASOPHILS % (AUTO) 0 % (0-10); EOSINOPHILS # (AUTO) 0.1 10^3/uL (0.0-0.3); EOSINOPHILS % (AUTO) 1 % (0-10); HEMATOCRIT 38 % (40-54); HEMOGLOBIN 12.7 g/dL (13.3-17.7); LYMPHOCYTES # (AUTO) 0.8 10^3/uL (1.0-4.0); LYMPHOCYTES % (AUTO) 5 % (12-44); MEAN CORPUSCULAR HEMOGLOBIN 30 pg (25-34); MEAN CORPUSCULAR HGB CONC 33 g/dL (32-36); MEAN CORPUSCULAR VOLUME 90 fL (80-99); MEAN PLATELET VOLUME 10.1 fL (9.0-12.2); MONOCYTES # (AUTO) 0.6 10^3/uL (0.0-1.0); MONOCYTES % (AUTO) 4 % (0-12); NEUTROPHILS # (AUTO) 13.8 10^3/uL (1.8-7.8); NEUTROPHILS % (AUTO) 89 % (42-75); PLATELET COUNT 99 10^3/uL (130-400); WHITE BLOOD COUNT 15.4 10^3/uL (4.3-11.0)
[2020-09-11 05:30] LABS: ALANINE AMINOTRANSFERASE 19 U/L (0-55); ALBUMIN 3.2 GM/DL (3.2-4.5); ALKALINE PHOSPHATASE 71 U/L (40-136); BILIRUBIN,TOTAL 1.1 MG/DL (0.1-1.0); BUN/CREATININE RATIO 26; CALCIUM 8.6 MG/DL (8.5-10.1); CARBON DIOXIDE 22 MMOL/L (21-32); CHLORIDE 107 MMOL/L (98-107); CREATININE SERUM 0.92 MG/DL (0.60-1.30); GFR ESTIMATED > 60; GLUCOSE 87 MG/DL (70-105); POTASSIUM 3.9 MMOL/L (3.6-5.0); SODIUM 139 MMOL/L (135-145); TOTAL PROTEIN 5.3 GM/DL (6.4-8.2)
[2020-09-11] MEDS: SUCRALFATE 1 GM (CARAFATE) TAB PO SCH ×4 (05:37→21:24)
[2020-09-11 05:41] LABS: BAND NEUTROPHILS 1 %; EOSINOPHILS % (MANUAL) 1 %; LYMPHOCYTES % (MANUAL) 7 %; MONOCYTES % (MANUAL) 1 %; NEUTROPHILS % (MANUAL) 90 %; RBC MORPH NORMAL
[2020-09-11] MEDS: RT-ALBUTEROL SULF 2.5 MG/3 ML PRE-MIX VIAL INH SCH ×3 (06:37→14:45)
[2020-09-11] MEDS: RT--FLUTICASONE/SALMETEROL 113-14 (AIRDUO RespiCLICK) IH SCH ×2 (06:39→18:14)
[2020-09-11] MEDS ORDERED: morphine INJ 4 MG/ML 1 ML (VIAL/SYRINGE) ONE (06:53)
[2020-09-11 06:54] VITALS: BP 178/74
[2020-09-11] MEDS: morphine INJ 4 MG/ML 1 ML (VIAL/SYRINGE) IVP PRN ×2 (07:30→11:06)
[2020-09-11] MEDS ORDERED: fentaNYL INJ 100 MCG/2 ML AMP ONE (07:32)
[2020-09-11] MEDS ORDERED: proPOfol 200 MG/20 ML (DIPRIVAN) VIAL IV ONE (07:35)
[2020-09-11] MEDS ORDERED: SEVOFLURANE (ULTANE) 15 ML INHAL SOLN ONE ×2 (07:35→09:06)
[2020-09-11] MEDS ORDERED: ONDANSETRON 4 MG/2 ML (SDV) Z0FRAN ONE (07:35)
[2020-09-11] MEDS ORDERED: LIDOCAINE PF 2% 5 ML (XYLOCAINE) VIAL ONE (07:35)
--- NOTE | 2020-09-11 08:06 | PM&R Progress Note ---
Subjective HPI/CC On Admission Date Seen by Provider: Sep 11, 2020 Time Seen by Provider: 09:00 Subjective/Events-last exam 09/11/20: Drowsiness from conscious sedation from ear surgery Dr Hahn so will require less than time study technician from therapy today. Pt came back from ear procedure by Dr. Hahn Mucomyst nebulizer treatments BID scheduled Consulting Dr. Cook Antibiotics for ear infection coming to an end Labs reviewed 09/10/20: Patient doing well Coarse upper bronchial sounds No pain reported IS use has increased Mucomyst Nebs will be used Dr Hahn will take him to OR tomorrow brief sedation for ears 09/09/20: Patient doing better Less dyspnea and cough Dr Hahn saw him today and will take him to OR for a sedated surgery on Friday to remove debris causing hearing loss IS used Eye drops ordered CT scan subdural noted on CT 09/08/20: Patient settling in well Pain about the same of the right rib fracture BM ++ today after laxatives GERD treatment requested Dr Hahn consulted Cough is productive Abx maintained Prednisone maintained PCT and LA normal Lungs better with Nebs Review of Systems General: Fatigue Pulmonary: Dyspnea Objective Exam Vital Signs Vital Signs Date Time Temp Pulse Resp B/P (MAP) Pulse Ox O2 Delivery O2 Flow Rate FiO2 09/12/20 02:14 93 Room Air 0.00 09/11/20 16:00 36.6 76 16 132/61 (84) 09/08/20 07:23 Capillary Refill : General Appearance: No Apparent Distress, WD/WN, Chronically ill HEENT: PERRL/EOMI, Pharynx Normal, Other (severe COEUR D'ALENE, facial injuries with sutured left face) Neck: Full Range of Motion, Normal Inspection, Non Tender, Supple, Carotid Bruit Respiratory: Chest Non Tender, No Accessory Muscle Use, No Respiratory Distress, Crackles, Decreased Breath Sounds, Wheezing Cardiovascular: Regular Rate, Rhythm, No Edema, No Gallop, No JVD, No Murmur, Normal Peripheral Pulses Gastrointestinal: Normal Bowel Sounds, No Organomegaly, No Pulsatile Mass, Non Tender, Soft Back: Normal Inspection, No CVA Tenderness, No Vertebral Tenderness Extremity: Normal Capillary Refill, Normal Inspection, Normal Range of Motion, Non Tender, No Calf Tenderness, No Pedal Edema Neurologic/Psychiatric: Alert, Oriented x3, No Motor/Sensory Deficits, Normal Mood/Affect Skin: Normal Color, Warm/Dry Lymphatic: No Adenopathy Results/Procedures Lab Laboratory Tests 09/11/20 04:55 Patient resulted labs reviewed. FIM Transfers Therapy Code Descriptions/Definitions Functional [place] Measure: 0=Not Assessed/NA 4=Minimal Assistance 1=Total Assistance 5=Supervision or Setup 2=Maximal Assistance 6=Modified [place] 3=Moderate Assistance 7=Complete IndependenceSCALE: Activities may be completed with or without assistive devices. 7-Nhlnogncgw-llygtrp completes the activity by him/herself with no assistance from a helper. 5-Set-up or Clean-up Assistance-helper sets up or cleans up; patient completes activity. [place] assists only prior to or following the activity. 4-Supervision or Touching Assistance-helper provides verbal cues and/or touching/steadying and/or contact guard assistance as patient completes activity. Assistance may be provided throughout the activity or intermittently. 3-Partial/Moderate Assistance-helper does LESS THAN HALF the effort. [place] lifts, holds or supports trunk or limbs, but provides less than half the effort. 2-Substantial/Maximal Assistance-helper does MORE THAN HALF the effort. [place] lifts or holds trunk or limbs and provides more than half the effort. 5-Weojpbmfr-qypnun does ALL the effort. Patient does none of the effort to complete the activity. Or, the assistance of 2 or more helpers is required for the patient to complete the activity. If activity was not attempted, code reason: 7-Patient Refused. 9-Not Applicable-not attempted and the patient did not perform the activity before the current illness, exacerbation or injury. 10-Not Attempted due to Environmental Limitations-(lack of equipment, weather restraints, etc.). 88-Not Attempted due to Medical Conditions or Safety Concerns. Sit to Lying (QC): 4 Sit to Stand (QC): 3 (SB-CGA for safety.) Chair/Tkp-rw-Znfkw Xfer(QC): 3 (SB to CGA for safety) Car Transfer (QC): 4 Gait Training Does the Patient Walk?: Yes Distance: 400', 100' Walk 10 feet (QC): 4 Walk 50 ft with 2 Turns(QC): 4 Walk 150 ft (QC): 4 (FWW; wide DEVIN; unsteady with turning at times. ) Walking 10ft/uneven surface-QC: 4 Gait Assistive Device: FWW Wheelchair Training Does the Pt Use a Wheelchair?: No Wheel 50 ft with 2 turns (QC): 9 Wheel 150 ft (QC): 9 Stair Training #of Steps: 4 1 Step (curb) (QC): 4 4 Steps (QC): 4 12 Steps (QC): 88 Balance Picking up an Object (QC): 88 ADL-Treatment Eating (QC): 6 Oral Hygiene (QC): 4 (CGA standing at sink to brush teeth.) Shower/Bathe Self (QC): 4 (CGA in stance in shower for dynamic standing balance.) Upper Body Dressing (QC): 5 Lower Body Dressing (QC): 4 (CGA in stance to don pants over hips. Pt. requ ires increased time to rack puller hips, as ribs are sore and he has to strain somewhat.) On/Off Footwear (QC): 4 Toileting Hygiene (QC): 4 Toilet Transfer (QC): 4 Assessment/Plan Assessment and Plan Assess & Plan/Chief Complaint Assessment: Facial and head trauma from steer moving gate striking head Subdural hematoma Facial fractures Bilateral OM Severe COEUR D'ALENE RA COPD Interstitial lung disease Plan: Nebs BM regimen IRF protocol Monitor closely 09/08/20: Abx Monitor pain BM regimen Monitor closely 09/09/20: Dr Hahn appreciated Friday procedure to help hearing loss Monitor lungs 09/10/20: Monitor BP Mucomyst nebs Monitor pain 09/11/20: Mucomyst nebs Dr Cook consultation IV steroids (1) Subdural hematoma (2) Rheumatoid arthritis (3) Rales (4) Interstitial lung disease (5) Emphysema of lung (6) Orbital wall fracture (7) BPH (benign prostatic hyperplasia) DIONNE ASMUEL DO Sep 11, 2020 08:06
[2020-09-11] MEDS: GENTAMICIN 0.3% OPHTH SOLN 5 ML LEFT EAR SCH ×3 (09:00→21:24)
[2020-09-11] MEDS ORDERED: SUCCINYLCHOLINE INJ 100 MG/5 ML SYR/VIAL ONE (09:06)
[2020-09-11] MEDS ORDERED: fentaNYL INJ 100 MCG/2 ML AMP IVP ONE (09:15)
[2020-09-11] MEDS ORDERED: ONDANSETRON 4 MG/2 ML (SDV) Z0FRAN IVP PRN (09:15)
[2020-09-11] MEDS: HYDROcodone/APAP 5 MG/325 MG (LORTAB) TAB PO PRN ×2 (10:24→15:22)
[2020-09-11] MEDS: TERAZOSIN 5 MG (HYTRIN) CAPSULE PO SCH (10:28)
[2020-09-11] MEDS: PANTOPRAZOLE 40 MG (PROTONIX) TAB PO SCH (10:28)
[2020-09-11] MEDS: guaiFENesin (MUCINEX) 600 MG TAB PO SCH (10:28)
[2020-09-11] MEDS: CEFDINIR 300 MG (OMNICEF) CAP PO SCH ×2 (10:28→21:24)
[2020-09-11] MEDS: FINASTERIDE (PROSCAR) 5 MG TAB PO SCH (10:29)
[2020-09-11] MEDS: polyethylene glycoL POWDER 17 GM (MIRALAX) PACK PO SCH ×2 (11:52→21:15)
[2020-09-11] MEDS: SENNA W/DOCUSATE (SENOKOT S) TABLET PO SCH ×2 (11:52→21:24)
--- NOTE | 2020-09-11 12:03 | Physical Therapy Daily Note ---
PT Daily Note-Current Subjective Patient laying supine in bed pre tx. Patient reports "wooziness" but agrees to PT. Patient experiencing unrated pain in ribs. Appearance Patient left seated upright in chair post tx. O2 secured on patient, and call button and tray table within reach. Patient daughter present in room upon leaving. Mental Status Patient Orientation: Person, Place, Time Transfers SCALE: Activities may be completed with or without assistive devices. 9-Hdzudsebww-wiatcjm completes the activity by him/herself with no assistance from a helper. 5-Set-up or Clean-up Assistance-helper sets up or cleans up; patient completes activity. [place] assists only prior to or following the activity. 4-Supervision or Touching Assistance-helper provides verbal cues and/or touching/steadying and/or contact guard assistance as patient completes activity. Assistance may be provided throughout the activity or intermittently. 3-Partial/Moderate Assistance-helper does LESS THAN HALF the effort. [place] lifts, holds or supports trunk or limbs, but provides less than half the effort. 2-Substantial/Maximal Assistance-helper does MORE THAN HALF the effort. [place] lifts or holds trunk or limbs and provides more than half the effort. 2-Odkqnauzu-ukuamg does ALL the effort. Patient does none of the effort to complete the activity. Or, the assistance of 2 or more helpers is required for the patient to complete the activity. If activity was not attempted, code reason: 7-Patient Refused. 9-Not Applicable-not attempted and the patient did not perform the activity before the current illness, exacerbation or injury. 10-Not Attempted due to Environmental Limitations-(lack of equipment, weather restraints, etc.). 88-Not Attempted due to Medical Conditions or Safety Concerns. Lying to Sitting/Side of Bed(Q: 4 Sit to Stand (QC): 4 Chair/Yaz-iz-Omqxt Xfer(QC): 4 Toilet Transfer (QC): 4 CGA x1 secondary to patient dizziness post-op Gait Training Does the Patient Walk?: Yes Distance: 200' x2 Walk 10 feet (QC): 4 Walk 50 ft with 2 Turns(QC): 4 Walk 150 ft (QC): 4 Gait Persons Needed: 1 Gait Assistive Device: FWW CGA x1 for patient safety post-op. Patient maintained balance during ambulation without difficulty. Treatments Co-treated with OT secondary to patient fall risk, decreased endurance, and increased pain with mobility following procedure. PT focused on gait training, safety with transfers, and functional mobility while OT focused on energy conservation, upright posturing for airway clearance, and ADL's. Assessment Current Status: Good Progress Patient demonstrated good tolerance with ambulation and transfers post-op, required one rest break after ambulation and mild SOB. PT Short Term Goals Short Term Goals Time Frame: Sep 15, 2020 Roll Left & Right: 6 Sit to lyin Lying to sitting on side of be: 6 Sit to stand: 5 Chair/fbc-iy-xohvo transfer: 5 Toilet transfer: 5 Walk 10 feet: 5 Walk 50 feet with two turns: 5 Walk 150 feet: 5 Walking 10ft on uneven surface: 5 1 step (curb): 5 4 steps: 5 Picking up objects: 4 PT Usp Goals Usp Goals PT Usp Goals Time Frame: Oct 06, 2020 Roll Left & Right (QC): 6 Sit to Lying (QC): 6 Lying-Sitting on Side/Bed(QC): 6 Sit to Stand (QC): 6 Chair/Vdc-fb-Alpiq Xfer(QC): 6 Toilet Transfer (QC): 6 Car Transfer (QC): 6 Does the Patient Walk: Yes Walk 10 feet (QC): 6 Walk 50ft with 2 Turns (QC): 6 Walk 150 ft (QC): 6 Walking 10ft on Uneven Surface: 6 1 Step (curb) (QC): 6 4 Steps (QC): 6 12 Steps (QC): 88 Picking up an Object (QC): 6 Does the Pt use WC or Scooter?: No Wheel 50 feet with 2 turns (QC: 9 Wheel 150 feet: 9 PT Plan Problem List Problem List: Activity Tolerance, Functional Strength, Safety, Balance, Gait, T ransfer, Bed Mobility, ROM Treatment/Plan Treatment Plan: Continue Plan of Care Treatment Plan: Education, Functional Activity Jose, Functional Strength, Group Therapy, Gait, Safety, Therapeutic Exercise, Transfers Treatment Duration: Oct 06, 2020 Frequency: At least 5 of 7 days/Wk (IRF) Estimated Hrs Per Day: 1.5 hours per day Patient and/or Family Agrees t: Yes Safety Risks/Education Patient Education: Gait Training, Transfer Techniques, Safety Issues Teaching Recipient: Patient Teaching Methods: Demonstration, Audiovisual Response to Teaching: Verbalize Understanding, Return Demonstration Time/GCodes Time In: 1130 Time Out: 1200 Total Billed Treatment Time: 30 Total Billed Treatment 1 visit: FA x2: 30' JAMES WONG PT Sep 11, 2020 12:03
[2020-09-11] MEDS: predniSONE 20 MG TAB PO SCH (12:10)
--- NOTE | 2020-09-11 12:59 | Anesthesia-General Post-Op ---
General Patient Condition Mental Status/LOC: Same as Preop Cardiovascular: Satisfactory Nausea/Vomiting: Absent Respiratory: Satisfactory Pain: Controlled Complications: Absent Post Op Complications Complications None Follow Up Care/Instructions Patient Instructions None needed. Anesthesia/Patient Condition Patient Condition Patient is doing well, no complaints, stable vital signs, no apparent adverse anesthesia problems. No complications reported per nursing. D/C home per [facility] Criteria: JACQUELIN Cordova CRNA Sep 11, 2020 12:59
--- NOTE | 2020-09-11 14:06 | Occupational Ther Daily Note ---
OT Current Status-Daily Note Subjective Pt. reports pain, (40/10) in right chest area due to broken ribs. Pt. given pain medication after surgery. Mental Status/Objective Patient Orientation: Person ADL-Treatment Therapy Code Descriptions/Definitions Functional [place] Measure: 0=Not Assessed/NA 4=Minimal Assistance 1=Total Assistance 5=Supervision or Setup 2=Maximal Assistance 6=Modified [place] 3=Moderate Assistance 7=Complete IndependenceSCALE: Activities may be completed with or without assistive devices. 5-Zalwlbcnuv-bkozpdg completes the activity by him/herself with no assistance from a helper. 5-Set-up or Clean-up Assistance-helper sets up or cleans up; patient completes activity. [place] assists only prior to or following the activity. 4-Supervision or Touching Assistance-helper provides verbal cues and/or kourtney ambreen/steadying and/or contact guard assistance as patient completes activity. Assistance may be provided throughout the activity or intermittently. 3-Partial/Moderate Assistance-helper does LESS THAN HALF the effort. [place] lifts, holds or supports trunk or limbs, but provides less than half the effort. 2-Substantial/Maximal Assistance-helper does MORE THAN HALF the effort. [place] lifts or holds trunk or limbs and provides more than half the effort. 9-Zxxsplcbf-kqneol does ALL the effort. Patient does none of the effort to complete the activity. Or, the assistance of 2 or more helpers is required for the patient to complete the activity. If activity was not attempted, code reason: 7-Patient Refused. 9-Not Applicable-not attempted and the patient did not perform the activity before the current illness, exacerbation or injury. 10-Not Attempted due to Environmental Limitations-(lack of equipment, weather restraints, etc.). 88-Not Attempted due to Medical Conditions or Safety Concerns. Toileting Hygiene (QC): 4 Toilet Transfer (QC): 4 Other Treatment Pt. had surgery this morning for his ear. 1010- OT attempted treatment, but pt. had just returned from surgery, and was still very groggy. Nursing in room and assessing pt, and daughter in room and requests for pt. to rest. OT came back at later time that a.m. [id number]- OT/PT co-treated due to pt reporting pain in ribs, at 40/10. Pt. has had pain medication, but agrees to work with therapy. PT focused on balance and ambulation with walker and OT talked with daughter regarding communication with spouse. Daughter is concerned about parents being able to communicate, as pt. can't hear, but can read and write, and pt's spouse at this time can't write or see well. Talked with pt. about using "talk to text" possibly on an iphone. Daughter reports use of possible apps, but would like further research into this. OT will speak with other therapy members, including speech therapist. OT assessing pt's endurance during ambulation. Pt. had difficulty with staying upright too long, and required rest break during ambulation with walker. Please see PT note for distance ambulated. [id number]- OT/PT co-treated again due to reported fatigue. Pt. reports that he is having less pain, but doesn't report number. Declines pain medication. PT attempted to use quad cane with pt., but he was unable to balance self efficiently. OT encouraged ADL skills. Pt. declines shower, but agrees to use toilet. Ambulated with walker to therapy gym, with CGA x 2, and worked on standing balance and balloon bat. PT focused on balance in stance at walker while OT hit balloon back and forth to pt for increased endurance and UE reach. Multiple rest breaks needed. Pt. unable to tolerate more than that, and requests to rest in room. Ambulated back and transferred to chair. All needs met. Education OT Patient Education: Correct positioning, Exercise program, Modified ADL techniques, Progress toward Goal/Update tx plan, Purpose of tx/functional activities, Reviewed precautions, Rehab process, Transfer techniques OT Short Term Goals Short Term Goals Time Frame: Sep 15, 2020 Shower/bathe self: 5 Lower body dressin Putting on/taking off footwear: 5 OT Cracking Unit Operator Goals Group Home Goals Time Frame: Sep 29, 2020 Eating (QC): 6 Oral Hygiene (QC): 6 Toileting Hygiene (QC): 6 Shower/Bathe Self (QC): 6 Upper Body Dressing (QC): 6 Lower Body Dressing (QC): 6 On/Off Footwear (QC): 6 Additional Goals: 1-Demonstrate ADL Tasks, 2-Verbalize Understanding, 3- ImproveStrength/Jose 1=Demonstrate adherence to instructed precautions during ADL tasks. 2=Patient will verbalize/demonstrate understanding of assistive devices/modifications for ADL. 3=Patient will improve strength/tolerance for activity to enable patient to perform ADL's. OT Education/Plan Problem List/Assessment Assessment: Decreased Activ Tolerance, Dependent Transfers, Impaired Funct Balance, Impaired I ADL's, Impaired Self-Care Skills Discharge Recommendations Plan/Recommendations: Continue POC Therapy Discharge Recommendati: Post Acute OT Treatment Plan/Plan of Care Treatment,Training & Education: Yes Patient would benefit from OT for education, treatment and training to promote independence in ADL's, mobility, safety and/or upper extremity function for ADL's. Plan of Care: ADL Retraining, Functional Mobility, Group Exercise/Act as Ind, UE Funct Exercise/Act Treatment Duration: Sep 29, 2020 Frequency: At least 5 of 7 days/Wk (IRF) Estimated Hrs Per Day: 1.5 hours per day Agreement: Yes Rehab Potential: Good Time/GCodes Start Time: 10:10 Stop Time: 13:30 Total Time Billed (hr/min): 60 Billed Treatment Time 1010- Pt. had just returned from surgery, on hold. [id number] 1, FA x 48awpnbbb-Fa-afran with PT [id number] 1, FA x 30minutes- Co-treat with PT Please see above note for designated roles. CARLITA HOWELL OT Sep 11, 2020 14:06
--- NOTE | 2020-09-11 14:17 | Physical Therapy Daily Note ---
PT Daily Note-Current Subjective Patient reported moderate, unrated pain in R rib area when patient moves arm or coughs. Patient reported he is very tired after his procedure. Patient seated upright in chair pre tx, and consented to treatment. Appearance Patient seated upright in chair, with call button within reach and tray table positioned in front. Mental Status Patient Orientation: Person, Place, Time Transfers SCALE: Activities may be completed with or without assistive devices. 8-Uzzbpjgvpd-elptnsl completes the activity by him/herself with no assistance from a helper. 5-Set-up or Clean-up Assistance-helper sets up or cleans up; patient completes activity. [place] assists only prior to or following the activity. 4-Supervision or Touching Assistance-helper provides verbal cues and/or touching/steadying and/or contact guard assistance as patient completes activity. Assistance may be provided throughout the activity or intermittently. 3-Partial/Moderate Assistance-helper does LESS THAN HALF the effort. [place] lifts, holds or supports trunk or limbs, but provides less than half the effort. 2-Substantial/Maximal Assistance-helper does MORE THAN HALF the effort. [place] lifts or holds trunk or limbs and provides more than half the effort. 8-Ccdgyheyi-azpcfw does ALL the effort. Patient does none of the effort to complete the activity. Or, the assistance of 2 or more helpers is required for the patient to complete the activity. If activity was not attempted, code reason: 7-Patient Refused. 9-Not Applicable-not attempted and the patient did not perform the activity before the current illness, exacerbation or injury. 10-Not Attempted due to Environmental Limitations-(lack of equipment, weather restraints, etc.). 88-Not Attempted due to Medical Conditions or Safety Concerns. Sit to Stand (QC): 4 Chair/Hbb-qa-Eylnx Xfer(QC): 4 CGA x1 Gait Training Does the Patient Walk?: Yes Distance: 120' x2 Walk 10 feet (QC): 4 (CGA) Walk 50 ft with 2 Turns(QC): 4 (CGA) Gait Assistive Device: FWW Initially attempted for patient to trial the use of quad cane with ambulation. Quad cane appeared to cause patient to be off balance and challenged his stability. Patient returned to using FWW and stability improved remarkably. Exercises Balloon ball: patient performed 3 sets of 5' of balance training while hitting balloon back and forth Treatments Co-treated with OT secondary to patient fall risk, decreased balance, and diminished functional mobility. PT focused on gait training, balance with functional mobility, and transfers. OT focused on posturing and UE coordination while standing. Assessment Seated patient upright post tx secondary to fluid in lungs that is obvious when patient breathes, to aid in mobilizing of fluid to cough up. Patient required a few attempts at sit <-> stand transfer, and had difficulty with seating himself secondary to pain in rib area. Patient did not perform the full 90 minutes of therapy today due to pain and fatigue post surgical procedure. PT Short Term Goals Short Term Goals Time Frame: Sep 15, 2020 Roll Left & Right: 6 Sit to lyin Lying to sitting on side of be: 6 Sit to stand: 5 Chair/mhl-rk-dqnqj transfer: 5 Toilet transfer: 5 Walk 10 feet: 5 Walk 50 feet with two turns: 5 Walk 150 feet: 5 Walking 10ft on uneven surface: 5 1 step (curb): 5 4 steps: 5 Picking up objects: 4 PT Containers Sales Representative Goals Custodial Goals PT Custodial Goals Time Frame: Oct 06, 2020 Roll Left & Right (QC): 6 Sit to Lying (QC): 6 Lying-Sitting on Side/Bed(QC): 6 Sit to Stand (QC): 6 Chair/Sxm-ij-Glcas Xfer(QC): 6 Toilet Transfer (QC): 6 Car Transfer (QC): 6 Does the Patient Walk: Yes Walk 10 feet (QC): 6 Walk 50ft with 2 Turns (QC): 6 Walk 150 ft (QC): 6 Walking 10ft on Uneven Surface: 6 1 Step (curb) (QC): 6 4 Steps (QC): 6 12 Steps (QC): 88 Picking up an Object (QC): 6 Does the Pt use WC or Scooter?: No Wheel 50 feet with 2 turns (QC: 9 Wheel 150 feet: 9 PT Plan Problem List Problem List: Activity Tolerance, Functional Strength, Safety, Balance, Gait, Transfer, Bed Mobility, ROM Treatment/Plan Treatment Plan: Continue Plan of Care Treatment Plan: Education, Functional Activity Jose, Functional Strength, Group Therapy, Gait, Safety, Therapeutic Exercise, Transfers Treatment Duration: Oct 06, 2020 Frequency: At least 5 of 7 days/Wk (IRF) Estimated Hrs Per Day: 1.5 hours per day Patient and/or Family Agrees t: Yes Safety Risks/Education Patient Education: Gait Training, Correct Positioning, Safety Issues Teaching Recipient: Patient Teaching Methods: Demonstration, Audiovisual Response to Teaching: Verbalize Understanding, Return Demonstration Time/GCodes Time In: 1300 Time Out: 1330 Total Billed Treatment Time: 30 Total Billed Treatment 1 visit: FA: 15' EX: 15' JAMES WONG PT Sep 11, 2020 14:17
--- NOTE | 2020-09-11 15:40 | CONSULTATION REPORT ---
DATE OF SERVICE: 09/08/2020 REFERRING PHYSICIAN: Dr. Stacy. ROOM: 225. REASON FOR CONSULTATION: Hearing loss, facial trauma. HISTORY OF PRESENT ILLNESS: The patient was admitted to [facility] rehabilitation on a transfer from [place]. He suffered severe facial injuries as well as cracked rib and potentially fractured arm when a cow hit the gate, pushing the gate into him, this was less than one week ago. Workup in the [place] [facility] revealed a subdural hematoma as well as multiple facial lacerations. Review of the CT of the head, which was performed at [place] showed the subdural hematoma as well as bilateral medial orbital fractures and the facial lacerations which have been repaired. He was stabilized and subsequently transferred to the inpatient rehabilitation. He has a long history of a right ear. He is now not able to hear out of the left ear; it has been draining. He has an indwelling tube on the left side. Even with his hearing aid, he is unable to hear anything from the left side. PHYSICAL EXAMINATION: Showed the right ear to be clear. The left ear showed drainage in the canal with an indwelling 7 mm tube. There was no acute infection seen. There is no swelling postauricularly. No bruising seen in the mastoid region. Face, he has marked swelling of the face with multiple lacerations, which have been repaired. Vision was grossly intact. Extraocular muscles were intact. There was no evidence of entrapment seen. The oral cavity was clear. The palate was intact. There is no point tenderness along the mandible. Neck: No mass, adenopathy, or thyromegaly palpable within the neck. PROCEDURE: While in his room, verbal consent was obtained. The left ear was examined underneath the operating microscope. I removed the 7 mm tube and suctioned as much drainage as I could out of the middle ear, is very thick, viscous and rubber cement like. I subsequently tried to put a T-tube in but was unable to do it. I did place a new 7 mm tube. Subsequent to that, I replaced the battery of his hearing aid. The hearing aid was working when he put it in his ear. Unfortunately, he still could not hear. IMPRESSION: 1. Bilateral severe to profound hearing loss. 2. Left serous otitis media. 3. History of recent head trauma. 4. Facial lacerations, status post repair. RECOMMENDATIONS: The tube was switched out as above. Unfortunately, did not help his hearing. Because of that, we will go ahead and obtain a CT of the temporal bones to rule out a temporal bone fracture on the left side and to further evaluate the middle ear and mastoid region. If it shows continued fluid in the middle ear, then potentially a procedure in the operating room to clean and irrigate the ear as well as place a T-tube would be recommended. I will follow up with him after the CT of the temporal bones on Friday. Job ID: [id number] DocumentID: [id number] Dictated Date: 09/11/2020 06:29:06 Neurology Stroke Physician Date: 09/11/2020 08:00:41 Dictated By: AMELIA DE LA CRUZ MD
--- NOTE | 2020-09-11 15:40 | CONSULTATION REPORT ---
DATE OF SERVICE: 09/09/2020 REASON FOR VISIT: Followup ear problems. HISTORY OF PRESENT ILLNESS: The patient has had the CT of the temporal bone performed. It did not show any evidence of a temporal bone fracture. It did show continued debris in the middle ear space as well as an opacified mastoid on the left. He has fluid bilaterally in the sinuses from either chronic sinus disease or more likely a combination of that and his recent trauma. The right ear was clear. IMPRESSION: 1. Chronic left serous otitis media. 2. Chronic left mastoid opacification. 3. Bilateral severe/profound hearing loss. RECOMMENDATIONS: Findings were discussed with him and his family. I believe he would be a good candidate for evaluation in the operating room for placement of a new T-tube and suction out everything I can from the middle ear space. Hopefully, that will at least help to a degree. If it does not, then consideration to see if he is a candidate for a cochlear implant, possibly on the right side since it is not chronically infected, would be advisable after he recovers from his recent trauma. Surgery has been scheduled for Friday in the operating room. Hopefully, this will help to a degree with a drain on the left. Job ID: [id number] DocumentID: [id number] Dictated Date: 09/11/2020 06:29:06 Dry Cure Worker Date: 09/11/2020 15:38:18 Dictated By: AMELIA DE LA CRUZ MD
[2020-09-11 16:00] VITALS: BP 132/61
--- NOTE | 2020-09-11 18:03 | Diagnostic Imaging Report ---
EXAM: CHEST 1 VIEW, AP/PA ONLY INDICATION: Shortness of air. COMPARISON: Chest radiograph 09/08/2020. FINDINGS: Persistent airspace opacification in the right lung base. Increasing consolidation in the left lung base. Probable small bilateral pleural effusions. No pneumothorax. Heart size is upper limits of normal. Normal central pulmonary vascularity. Calcified aorta. IMPRESSION: 1. Bibasilar consolidation, increasing on the left. There are also probable small bilateral pleural effusions. 2. Heart size upper limits of normal with normal central pulmonary vascularity. Dictated by: Dictated on workstation # [id number]
[2020-09-11] MEDS: RT-ALBUTEROL/IPRATROPIUM 3 ML (DUONEB) VIAL INH SCH ×2 (18:14→23:01)
[2020-09-11] MEDS: aCETylcysteine 20% (MUCOMYST) 30ML SOLN VIAL INH SCH (18:14)
[2020-09-11] MEDS: methylPREDNISolone 40 MG/ML (Solu-MEDROL) VIAL IV SCH (21:24)
[2020-09-11 22:48] LABS: BILIRUBIN,URINE NEGATIVE (NEGATIVE); CLARITY,URINE CLEAR; COLOR,URINE YELLOW; GLUCOSE, URINE (UA) NEGATIVE (NEGATIVE); KETONES,URINE TRACE (NEGATIVE); LEUKOCYTE ESTERASE ,URINE NEGATIVE (NEGATIVE); NITRITE,URINE NEGATIVE (NEGATIVE); PROTEIN,URINE 2+ (NEGATIVE)
[2020-09-11 23:11] LABS: BACTERIA,URINE FEW /HPF; RBC,URINE 0-2 /HPF
[2020-09-12] MEDS: RT-ALBUTEROL/IPRATROPIUM 3 ML (DUONEB) VIAL INH SCH ×6 (02:14→21:10)
[2020-09-12] MEDS: ACETAMINOPHEN 325 MG TABLET PO SCH ×6 (03:02→22:06)
--- NOTE | 2020-09-12 05:26 | PM&R Progress Note ---
Subjective HPI/CC On Admission Date Seen by Provider: Sep 12, 2020 Time Seen by Provider: 10:00 Subjective/Events-last exam 09/12/20: Pt doing a lot better IV steroids have caused the WC to become elevated at 22,000 and Zosyn was started due to history of pseudomonas Overall ambulating around pretty well 09/11/20: Drowsiness from conscious sedation from ear surgery Dr Hahn so will require less than extractor filler from therapy today. Pt came back from ear procedure by Dr. Hahn Mucomyst nebulizer treatments BID scheduled Consulting Dr. Cook Antibiotics for ear infection coming to an end Labs reviewed 09/10/20: Patient doing well Coarse upper bronchial sounds No pain reported IS use has increased Mucomyst Nebs will be used Dr Hahn will take him to OR tomorrow brief sedation for ears 09/09/20: Patient doing better Less dyspnea and cough Dr Hahn saw him today and will take him to OR for a sedated surgery on Friday to remove debris causing hearing loss IS used Eye drops ordered CT scan subdural noted on CT 09/08/20: Patient settling in well Pain about the same of the right rib fracture BM ++ today after laxatives GERD treatment requested Dr Hahn consulted Cough is productive Abx maintained Prednisone maintained PCT and LA normal Lungs better with Nebs Review of Systems General: Fatigue Pulmonary: Dyspnea, Cough Focused Exam Lactate Level 09/12/20 06:15: Lactic Acid Level 1.29 Objective Exam Vital Signs Vital Signs Date Time Temp Pulse Resp B/P (MAP) Pulse Ox O2 Delivery O2 Flow Rate FiO2 09/13/20 01:58 98 Room Air 09/12/20 16:01 37.0 91 18 141/65 (90) 09/12/20 02:14 0.00 09/08/20 07:23 Capillary Refill : General Appearance: No Apparent Distress, WD/WN, Chronically ill HEENT: PERRL/EOMI, Pharynx Normal, Other (severe QUINAULT, facial injuries with sutured left face) Neck: Full Range of Motion, Normal Inspection, Non Tender, Supple, Carotid Bruit Respiratory: Chest Non Tender, No Accessory Muscle Use, No Respiratory Distress, Crackles, Decreased Breath Sounds, Wheezing Cardiovascular: Regular Rate, Rhythm, No Edema, No Gallop, No JVD, No Murmur, Normal Peripheral Pulses Gastrointestinal: Normal Bowel Sounds, No Organomegaly, No Pulsatile Mass, Non Tender, Soft Back: Normal Inspection, No CVA Tenderness, No Vertebral Tenderness Extremity: Normal Capillary Refill, Normal Inspection, Normal Range of Motion, Non Tender, No Calf Tenderness, No Pedal Edema Neurologic/Psychiatric: Alert, Oriented x3, No Motor/Sensory Deficits, Normal Mood/Affect Skin: Normal Color, Warm/Dry Lymphatic: No Adenopathy Results/Procedures Lab Laboratory Tests 09/12/20 06:15 Patient resulted labs reviewed. FIM Transfers Therapy Code Descriptions/Definitions Functional Stewart Measure: 0=Not Assessed/NA 4=Minimal Assistance 1=Total Assistance 5=Supervision or Setup 2=Maximal Assistance 6=Modified Stewart 3=Moderate Assistance 7=Complete IndependenceSCALE: Activities may be completed with or without assistive devices. 2-Qaiacoygvz-fanwoar completes the activity by him/herself with no assistance from a helper. 5-Set-up or Clean-up Assistance-helper sets up or cleans up; patient completes activity. [place] assists only prior to or following the activity. 4-Supervision or Touching Assistance-helper provides verbal cues and/or touching/steadying and/or contact guard assistance as patient completes activity. Assistance may be provided throughout the activity or intermittently. 3-Partial/Moderate Assistance-helper does LESS THAN HALF the effort. [place] lifts, holds or supports trunk or limbs, but provides less than half the effort. 2-Substantial/Maximal Assistance-helper does MORE THAN HALF the effort. [place] lifts or holds trunk or limbs and provides more than half the effort. 9-Ftzmbscjj-qgbqfv does ALL the effort. Patient does none of the effort to complete the activity. Or, the assistance of 2 or more helpers is required for the patient to complete the activity. If activity was not attempted, code reason: 7-Patient Refused. 9-Not Applicable-not attempted and the patient did not perform the activity before the current illness, exacerbation or injury. 10-Not Attempted due to Environmental Limitations-(lack of equipment, weather restraints, etc.). 88-Not Attempted due to Medical Conditions or Safety Concerns. Sit to Lying (QC): 4 Sit to Stand (QC): 4 Chair/Lkp-bk-Eufvc Xfer(QC): 4 Car Transfer (QC): 4 Gait Training Does the Patient Walk?: Yes Distance: 120' x2 Walk 10 feet (QC): 4 (CGA) Walk 50 ft with 2 Turns(QC): 4 (CGA) Walk 150 ft (QC): 4 Walking 10ft/uneven surface-QC: 4 Gait Persons Needed: 1 Gait Assistive Device: FWW Wheelchair Training Does the Pt Use a Wheelchair?: No Wheel 50 ft with 2 turns (QC): 9 Wheel 150 ft (QC): 9 Stair Training #of Steps: 4 1 Step (curb) (QC): 4 4 Steps (QC): 4 12 Steps (QC): 88 Balance Picking up an Object (QC): 88 ADL-Treatment Eating (QC): 6 Oral Hygiene (QC): 4 (CGA standing at sink to brush teeth.) Shower/Bathe Self (QC): 4 (CGA in stance in shower for dynamic standing balance.) Upper Body Dressing (QC): 5 Lower Body Dressing (QC): 4 (CGA in stance to don pants over hips. Pt. requires increased time to puller out hips, as ribs are sore and he has to strain somewhat.) On/Off Footwear (QC): 4 Toileting Hygiene (QC): 4 Toilet Transfer (QC): 4 Assessment/Plan Assessment and Plan Assess & Plan/Chief Complaint Assessment: Facial and head trauma from steer moving gate striking head Subdural hematoma Facial fractures Bilateral OM Severe QUINAULT RA COPD Interstitial lung disease Plan: Nebs BM regimen IRF protocol Monitor closely 09/08/20: Abx Monitor pain BM regimen Monitor closely 09/09/20: Dr Hahn appreciated Friday procedure to help hearing loss Monitor lungs 09/10/20: Monitor BP Mucomyst nebs Monitor pain 09/11/20: Mucomyst nebs Dr Cook consultation IV steroids 09/12/20: Monitor closely Nebs Abx (1) Subdural hematoma (2) Rheumatoid arthritis (3) Rales (4) Interstitial lung disease (5) Emphysema of lung (6) Orbital wall fracture (7) BPH (benign prostatic hyperplasia) DIONNE SAMUEL DO Sep 12, 2020 05:26
[2020-09-12 06:15] VITALS: BP 157/73
[2020-09-12] MEDS: SUCRALFATE 1 GM (CARAFATE) TAB PO SCH ×4 (06:21→20:01)
[2020-09-12 06:25] LABS: BASOPHILS # (AUTO) 0.1 10^3/uL (0.0-0.1); BASOPHILS % (AUTO) 0 % (0-10); LYMPHOCYTES % (AUTO) 2 % (12-44)
[2020-09-12 06:26] LABS: EOSINOPHILS % (AUTO) 0 % (0-10); HEMATOCRIT 38 % (40-54); HEMOGLOBIN 12.8 g/dL (13.3-17.7); LYMPHOCYTES # (AUTO) 0.4 10^3/uL (1.0-4.0); MEAN CORPUSCULAR HEMOGLOBIN 30 pg (25-34); MEAN CORPUSCULAR HGB CONC 33 g/dL (32-36); MEAN CORPUSCULAR VOLUME 91 fL (80-99); MONOCYTES # (AUTO) 0.3 10^3/uL (0.0-1.0); MONOCYTES % (AUTO) 2 % (0-12); NEUTROPHILS # (AUTO) 21.5 10^3/uL (1.8-7.8); NEUTROPHILS % (AUTO) 95 % (42-75); PLATELET COUNT 113 10^3/uL (130-400); WHITE BLOOD COUNT 22.6 10^3/uL (4.3-11.0)
[2020-09-12] MEDS: RT--FLUTICASONE/SALMETEROL 113-14 (AIRDUO RespiCLICK) IH SCH ×2 (06:34→18:33)
[2020-09-12] MEDS: aCETylcysteine 20% (MUCOMYST) 30ML SOLN VIAL INH SCH ×2 (06:34→18:33)
[2020-09-12 06:39] LABS: ALBUMIN 3.2 GM/DL (3.2-4.5); POTASSIUM 4.7 MMOL/L (3.6-5.0)
[2020-09-12 06:40] LABS: CALCIUM 8.6 MG/DL (8.5-10.1)
[2020-09-12 06:41] LABS: TOTAL PROTEIN 5.4 GM/DL (6.4-8.2)
[2020-09-12 06:43] LABS: BILIRUBIN,TOTAL 1.3 MG/DL (0.1-1.0)
[2020-09-12 06:45] LABS: CREATININE SERUM 1.25 MG/DL (0.60-1.30)
[2020-09-12] MEDS: PANTOPRAZOLE 40 MG (PROTONIX) TAB PO SCH (07:43)
[2020-09-12] MEDS: CEFDINIR 300 MG (OMNICEF) CAP PO SCH (07:43)
[2020-09-12] MEDS: guaiFENesin (MUCINEX) 600 MG TAB PO SCH (07:43)
[2020-09-12] MEDS: TERAZOSIN 5 MG (HYTRIN) CAPSULE PO SCH (07:43)
[2020-09-12] MEDS: methylPREDNISolone 40 MG/ML (Solu-MEDROL) VIAL IV SCH ×2 (07:44→20:01)
[2020-09-12] MEDS: FINASTERIDE (PROSCAR) 5 MG TAB PO SCH (07:44)
--- NOTE | 2020-09-12 07:44 | Pulmonary Consultation ---
History of Present Illness History of Present Illness Date Seen by Provider: Sep 12, 2020 Time Seen by Provider: 07:44 Date of Admission Allergies and Home Medications Allergies Coded Allergies: Sulfa (Sulfonamide Antibiotics) (Unverified Allergy, Unknown, 07/04/20) Home Medications Acetaminophen 650 Mg Tablet.er, 650 MG PO Q4H, (Reported) Albuterol Sulfate 8.5 Gm Hfa.aer.ad, 1-2 PUFF IH Q4H PRN for SHORTNESS OF BREATH, (Reported) Cefuroxime Axetil 250 Mg Tablet, 250 MG PO BID, (Reported) FILLED 09-02-2020 #20/10 DAY SUPPLY Finasteride 5 Mg Tablet, 5 MG PO DAILY, (Reported) Fluticasone/Salmeterol 1 Each Blst.w.dev, 2 EACH IH DAILY, (Reported) Guaifenesin 1,200 Mg Tab.er.12h, 1,200 MG PO DAILY, (Reported) Prednisone 20 Mg Tab, MG PO DAILY, (Reported) TAPER DOSE: 3 TABS DAILY X 2 DAYS 2 TABS DAILY X 2 DAYS 1 TAB DAILY X 2 DAYS Terazosin HCl 5 Mg Capsule, 5 MG PO DAILY, (Reported) Past Epbwrgw-Ynigqa-Frtuie Hx Past Med/Social Hx: Reviewed Nursing Past Med/Soc Hx, Reviewed and Corrections made Patient Social History Alcohol Use: Denies Use Smoking Status: Never a Smoker Type Used: Smokeless Tobacco Recent Hopitalizations: No Have you traveled recently?: No Immunizations Up To Date Tetanus Booster (TDap): More than 5yrs Date of Pneumonia Vaccine: Feb 20, 2009 Date of Influenza Vaccine: Feb 07, 2011 Past Medical History Surgeries: Yes (BOB) Abdominal, Gallbladder, Tonsillectomy Respiratory: Yes (USES INHALER "RARELY') Emphysema Currently Using CPAP: No Currently Using BIPAP: No Cardiac: Yes Neurological: No Reproductive Disorders: No Sexually Transmitted Disease: No Benign Prostatic Hyperpl, Kidney Stones Gastrointestinal: Yes Hiatal Hernia Musculoskeletal: Yes Rheumatoid Arthritis Endocrine: No HEENT: Yes Hearing Impairment: Hard of Hearing, Bilateral Hearing Aide Cancer: No Psychosocial: No Blood Disorders: No Adverse Reaction/Blood Tranf: No Family Medical History Cardiovascular disease 19 MOTHER Myocardial infarction 19 FATHER PANCREATIC 19 MOTHER Cancer, CAD Over 55 Years Old Review of Systems Time Seen by Provider: 07:44 Sepsis Event Evaluation Height, Weight, BMI Height: 5'10.00" Weight: 199lbs. 16.0oz. 90.483859ap; 26.06 BMI Method: Exam Exam Vital Signs Date Time Temp Pulse Resp B/P (MAP) Pulse Ox O2 Delivery O2 Flow Rate FiO2 09/12/20 06:35 90 Room Air 09/12/20 06:15 36.6 81 20 157/73 (101) 94 Room Air 09/12/20 02:14 93 Room Air 0.00 09/11/20 23:01 91 Room Air 0.00 09/11/20 20:30 Room Air 09/11/20 18:14 90 Room Air 0.00 09/11/20 16:00 36.6 76 16 132/61 (84) 90 09/11/20 14:46 90 Room Air 0.00 09/11/20 10:45 94 Nasal Cannula 3.00 09/11/20 09:00 Room Air I & O 09/12/20 06:59 Intake Total 1040 ml Balance 1040 ml Height & Weight Height: 5'10.00" Weight: 199lbs. 16.0oz. [id number]; 26.06 BMI Method: General Appearance: No Apparent Distress, WD/WN, Chronically ill HEENT: PERRL/EOMI, Pharynx Normal, Other (severe OHKAY OWINGEH, facial injuries with sutured left face) Neck: Full Range of Motion, Normal Inspection, Non Tender, Supple, Carotid Bruit Respiratory: Chest Non Tender, No Accessory Muscle Use, No Respiratory Distress, Crackles, Decreased Breath Sounds, Wheezing Cardiovascular: Regular Rate, Rhythm, No Edema, No Gallop, No JVD, No Murmur, Normal Peripheral Pulses Extremity: Normal Capillary Refill, Normal Inspection, Normal Range of Motion, Non Tender, No Calf Tenderness, No Pedal Edema Neurologic/Psychiatric: Alert, Oriented x3, No Motor/Sensory Deficits, Normal Mood/Affect Skin: Normal Color, Warm/Dry Lymphatic: No Adenopathy Results Lab Laboratory Tests 09/11/20 04:55 09/12/20 06:15 Assessment/Plan Assessment/Plan COPDAE with ILD -Duonebs -change prednisone to Solumedrol -Oxygen PNA -Zosyn -Monitor Facial/head trauma Subdural hematoma FABY VORA DO Sep 12, 2020 07:44
[2020-09-12] MEDS: polyethylene glycoL POWDER 17 GM (MIRALAX) PACK PO SCH ×2 (07:45→19:42)
[2020-09-12] MEDS: SENNA W/DOCUSATE (SENOKOT S) TABLET PO SCH ×2 (07:45→19:42)
[2020-09-12] MEDS: GENTAMICIN 0.3% OPHTH SOLN 5 ML LEFT EAR SCH ×3 (07:46→20:01)
[2020-09-12 07:53] VITALS: BP 134/61
[2020-09-12] MEDS ORDERED: PIPERACILLIN/TAZO 4.5 GM/NS 100 ML IV NR ×2 (08:00)
--- NOTE | 2020-09-12 09:51 | Physical Therapy Daily Note ---
PT Daily Note-Current Subjective Patient seated upright in therapy gym pre tx. Patient reports mild pain in ribs at start of treatment session, and consents to therapy. Appearance Patient seated upright in recliner next to post tx. Daughter present in the room, and all needs were met. Mental Status Patient Orientation: Person, Place, Time, Normal For Age Transfers SCALE: Activities may be completed with or without assistive devices. 7-Zjwdcrhvju-hxxwuwz completes the activity by him/herself with no assistance from a helper. 5-Set-up or Clean-up Assistance-helper sets up or cleans up; patient completes activity. [place] assists only prior to or following the activity. 4-Supervision or Touching Assistance-helper provides verbal cues and/or touching/steadying and/or contact guard assistance as patient completes activity. Assistance may be provided throughout the activity or intermittently. 3-Partial/Moderate Assistance-helper does LESS THAN HALF the effort. [place] lifts, holds or supports trunk or limbs, but provides less than half the effort. 2-Substantial/Maximal Assistance-helper does MORE THAN HALF the effort. [place] lifts or holds trunk or limbs and provides more than half the effort. 1-Crcmwajsm-wzahtx does ALL the effort. Patient does none of the effort to complete the activity. Or, the assistance of 2 or more helpers is required for the patient to complete the activity. If activity was not attempted, code reason: 7-Patient Refused. 9-Not Applicable-not attempted and the patient did not perform the activity before the current illness, exacerbation or injury. 10-Not Attempted due to Environmental Limitations-(lack of equipment, weather restraints, etc.). 88-Not Attempted due to Medical Conditions or Safety Concerns. Sit to Stand (QC): 4 Chair/Fvm-tn-Aknua Xfer(QC): 4 SBA x1 Gait Training Distance: 120' Walk 10 feet (QC): 4 Walk 50 ft with 2 Turns(QC): 4 Gait Assistive Device: FWW SBA x1 Exercises Seated Therapy Exercises: Ankle pumps, Long arc quads, Hip flexion, Hip abd/add (RTB, small ball) Standing: Hip Abduction (abduction/extension), Hamstring curls, Heel/toe raises, Marching Standing Reps: 20 NuStep Minutes: 15 NuStep Workload: 3 Treatments LE strengthening, balance, gait, endurance Assessment Current Status: Good Progress Patient demonstrated good exercise tolerance with ther ex, only utilizing a few short rest breaks. PT Short Term Goals Short Term Goals Time Frame: Sep 15, 2020 Roll Left & Right: 6 Sit to lyin Lying to sitting on side of be: 6 Sit to stand: 5 Chair/gfw-nr-ejxxq transfer: 5 Toilet transfer: 5 Walk 10 feet: 5 Walk 50 feet with two turns: 5 Walk 150 feet: 5 Walking 10ft on uneven surface: 5 1 step (curb): 5 4 steps: 5 Picking up objects: 4 PT Senior Care Goals Senior Care Goals PT Senior Care Goals Time Frame: Oct 06, 2020 Roll Left & Right (QC): 6 Sit to Lying (QC): 6 Lying-Sitting on Side/Bed(QC): 6 Sit to Stand (QC): 6 Chair/Vlf-wh-Vnpwv Xfer(QC): 6 Toilet Transfer (QC): 6 Car Transfer (QC): 6 Does the Patient Walk: Yes Walk 10 feet (QC): 6 Walk 50ft with 2 Turns (QC): 6 Walk 150 ft (QC): 6 Walking 10ft on Uneven Surface: 6 1 Step (curb) (QC): 6 4 Steps (QC): 6 12 Steps (QC): 88 Picking up an Object (QC): 6 Does the Pt use WC or Scooter?: No Wheel 50 feet with 2 turns (QC: 9 Wheel 150 feet: 9 PT Plan Problem List Problem List: Activity Tolerance, Functional Strength, Safety, Balance, Gait, Transfer, Bed Mobility, ROM Treatment/Plan Treatment Plan: Continue Plan of Care Treatment Plan: Education, Functional Activity Jose, Functional Strength, Group Therapy, Gait, Safety, Therapeutic Exercise, Transfers Treatment Duration: Oct 06, 2020 Frequency: At least 5 of 7 days/Wk (IRF) Estimated Hrs Per Day: 1.5 hours per day Patient and/or Family Agrees t: Yes Safety Risks/Education Patient Education: Gait Training, Transfer Techniques, Correct Positioning, Safety Issues Teaching Recipient: Patient Teaching Methods: Demonstration, Audiovisual Response to Teaching: Verbalize Understanding, Return Demonstration Time/GCodes Time In: 0900 Time Out: 1000 Total Billed Treatment Time: 60 Total Billed Treatment 1 visit: EX x3: 45' FA: 15' JAMES WONG PT Sep 12, 2020 09:51
--- NOTE | 2020-09-12 11:14 | Diagnostic Imaging Report ---
EXAMINATION: Chest, 2 views. HISTORY: Rales. COMPARISON: 09/11/2020. FINDINGS: Stable appearance is seen of bibasilar patchy consolidative opacities. No large pleural effusion or pneumothorax is seen. The cardiac silhouette is stable. There is calcified aortic atherosclerotic plaque. No acute osseous abnormalities. IMPRESSION: 1. Stable patchy consolidative opacities in the bilateral lung bases, concerning for infection or atelectasis. 2. No significant pleural effusions are seen on lateral views. Dictated by: Dictated on workstation # [id number]
--- NOTE | 2020-09-12 11:58 | Occupational Ther Daily Note ---
OT Current Status-Daily Note Subjective Pt. reports discomfort in right rib area, but does not report pain level. Pt. declines pain medication. Mental Status/Objective Patient Orientation: Person, Place, Time, Situation Pt. very [place] but is able to communicate when questions are written down for him. ADL-Treatment Therapy Code Descriptions/Definitions Functional [place] Measure: 0=Not Assessed/NA 4=Minimal Assistance 1=Total Assistance 5=Supervision or Setup 2=Maximal Assistance 6=Modified [place] 3=Moderate Assistance 7=Complete IndependenceSCALE: Activities may be completed with or without assistive devices. 8-Nehhxpmnbg-xhbacta completes the activity by him/herself with no assistance from a helper. 5-Set-up or Clean-up Assistance-helper sets up or cleans up; patient completes activity. [place] assists only prior to or following the activity. 4-Supervision or Touching Assistance-helper provides verbal cues and/or touching/steadying and/or contact guard assistance as patient completes activity. Assistance may be provided throughout the activity or intermittently. 3-Partial/Moderate Assistance-helper does LESS THAN HALF the effort. [place] lifts, holds or supports trunk or limbs, but provides less than half the effort. 2-Substantial/Maximal Assistance-helper does MORE THAN HALF the effort. [place] lifts or holds trunk or limbs and provides more than half the effort. 6-Elgolizzy-ykrknn does ALL the effort. Patient does none of the effort to c omplete the activity. Or, the assistance of 2 or more helpers is required for the patient to complete the activity. If activity was not attempted, code reason: 7-Patient Refused. 9-Not Applicable-not attempted and the patient did not perform the activity before the current illness, exacerbation or injury. 10-Not Attempted due to Environmental Limitations-(lack of equipment, weather restraints, etc.). 88-Not Attempted due to Medical Conditions or Safety Concerns. Oral Hygiene (QC): 4 (SBA standing at sink to brush teeth.) Upper Body Dressing (QC): 5 Toileting Hygiene (QC): 4 Toilet Transfer (QC): 4 Other Treatment Pt. in bed when OT entered room. Declines showering but agrees to don shirt, (already has on sweatpants and slipper socks), and brush teeth at sink. Pt. ambulated with walker and SBA to sink. After brushing teeth, he transferred to toilet and completed toileting task. Ambulated to therapy gym and completed bilateral UE exercises with dowel estela, x 10 reps each, x 3 exercises. Pt. required exercises slowly with increased time needed, due to discomfort. Completed fine motor task with nut/bolts for supination/pronation, and pinch/grasp. Tolerated this with no difficulty. Pt. ambulated back to room and all needs met in chair. Education OT Patient Education: Correct positioning, Exercise program, Modified ADL techniques, Progress toward Goal/Update tx plan, Purpose of tx/functional activities, Reviewed precautions, Rehab process, Transfer techniques Teaching Recipient: Patient Teaching Methods: Demonstration, Discussion Response to Teaching: Verbalize Understanding, Return Demonstration OT Short Term Goals Short Term Goals Time Frame: Sep 15, 2020 Shower/bathe self: 5 Lower body dressin Putting on/taking off footwear: 5 OT Detention Goals [employer] Machine Tender Goals Time Frame: Sep 29, 2020 Eating (QC): 6 Oral Hygiene (QC): 6 Toileting Hygiene (QC): 6 Shower/Bathe Self (QC): 6 Upper Body Dressing (QC): 6 Lower Body Dressing (QC): 6 On/Off Footwear (QC): 6 Additional Goals: 1-Demonstrate ADL Tasks, 2-Verbalize Understanding, 3- ImproveStrength/Jose 1=Demonstrate adherence to instructed precautions during ADL tasks. 2=Patient will verbalize/demonstrate understanding of assistive devices/modifications for ADL. 3=Patient will improve strength/tolerance for activity to enable patient to perform ADL's. OT Education/Plan Problem List/Assessment Assessment: Decreased Activ Tolerance, Impaired I ADL's, Impaired Self-Care Skills Discharge Recommendations Plan/Recommendations: Continue POC Therapy Discharge Recommendati: Post Acute OT Treatment Plan/Plan of Care Treatment,Training & Education: Yes Patient would benefit from OT for education, treatment and training to promote independence in ADL's, mobility, safety and/or upper extremity function for ADL's. Plan of Care: ADL Retraining, Functional Mobility, Group Exercise/Act as Ind, UE Funct Exercise/Act Treatment Duration: Sep 29, 2020 Frequency: At least 5 of 7 days/Wk (IRF) Estimated Hrs Per Day: 1.5 hours per day Agreement: Yes Rehab Potential: Good Time/GCodes Start Time: 08:10 Stop Time: 09:00 Total Time Billed (hr/min): 50 Billed Treatment Time 1, ADL x 30minutes, FA x 20minutes CARLITA HOWELL OT Sep 12, 2020 11:58
--- NOTE | 2020-09-12 12:03 | Occupational Ther Daily Note ---
OT Current Status-Daily Note Subjective No pain reported. Mental Status/Objective Patient Orientation: Person, Place, Time, Situation ADL-Treatment Therapy Code Descriptions/Definitions Functional [place] Measure: 0=Not Assessed/NA 4=Minimal Assistance 1=Total Assistance 5=Supervision or Setup 2=Maximal Assistance 6=Modified [place] 3=Moderate Assistance 7=Complete IndependenceSCALE: Activities may be completed with or without assistive devices. 7-Jchtdhezht-quqjgfm completes the activity by him/herself with no assistance from a helper. 5-Set-up or Clean-up Assistance-helper sets up or cleans up; patient completes activity. [place] assists only prior to or following the activity. 4-Supervision or Touching Assistance-helper provides verbal cues and/or touching/steadying and/or contact guard assistance as patient completes activity. Assistance may be provided throughout the activity or intermittently. 3-Partial/Moderate Assistance-helper does LESS THAN HALF the effort. [place] lifts, holds or supports trunk or limbs, but provides less than half the effort. 2-Substantial/Maximal Assistance-helper does MORE THAN HALF the effort. [place] lifts or holds trunk or limbs and provides more than half the effort. 0-Ghwacqayg-jbuael does ALL the effort. Patient does none of the effort to complete the activity. Or, the assistance of 2 or more helpers is required for the patient to complete the activity. If activity was not attempted, code reason: 7-Patient Refused. 9-Not Applicable-not attempted and the patient did not perform the activity before the current illness, exacerbation or injury. 10-Not Attempted due to Environmental Limitations-(lack of equipment, weather restraints, etc.). 88-Not Attempted due to Medical Conditions or Safety Concerns. Other Treatment Pt. ambulated with SBA and walker to therapy gym. Tolerated 15 minutes on arm bike x min resistance, with multiple rest breaks overall. Tolerated for increased endurance and strength. After resting, pt. stood and ambulated back to spouse's room. Pt. transferred to reclining chair in spouse's room to await her return. OT brought in pt's personal items from his room. All needs met. Education OT Patient Education: Correct positioning, Exercise program, Modified ADL techniques, Progress toward Goal/Update tx plan, Purpose of tx/functional activities, Reviewed precautions, Rehab process, Transfer techniques Teaching Recipient: Patient Teaching Methods: Demonstration, Handout, Discussion Response to Teaching: Verbalize Understanding, Return Demonstration OT Short Term Goals Short Term Goals Time Frame: Sep 15, 2020 Shower/bathe self: 5 Lower body dressin Putting on/taking off footwear: 5 OT Longterm Goals Equine Breeder Goals Time Frame: Sep 29, 2020 Eating (QC): 6 Oral Hygiene (QC): 6 Toileting Hygiene (QC): 6 Shower/Bathe Self (QC): 6 Upper Body Dressing (QC): 6 Lower Body Dressing (QC): 6 On/Off Footwear (QC): 6 Additional Goals: 1-Demonstrate ADL Tasks, 2-Verbalize Understanding, 3- ImproveStrength/Jose 1=Demonstrate adherence to instructed precautions during ADL tasks. 2=Patient will verbalize/demonstrate understanding of assistive devices/modifications for ADL. 3=Patient will improve strength/tolerance for activity to enable patient to perform ADL's. OT Education/Plan Problem List/Assessment Assessment: Decreased Activ Tolerance, Decreased UE Strength, Impaired I ADL's, Impaired Self-Care Skills Discharge Recommendations Plan/Recommendations: Continue POC Therapy Discharge Recommendati: Post Acute OT Treatment Plan/Plan of Care Treatment,Training & Education: Yes Patient would benefit from OT for education, treatment and training to promote independence in ADL's, mobility, safety and/or upper extremity function for ADL's. Plan of Care: ADL Retraining, Functional Mobility, Group Exercise/Act as Ind, UE Funct Exercise/Act Treatment Duration: Sep 29, 2020 Frequency: At least 5 of 7 days/Wk (IRF) Estimated Hrs Per Day: 1.5 hours per day Agreement: Yes Rehab Potential: Good Time/GCodes Start Time: 11:00 Stop Time: 11:40 Total Time Billed (hr/min): 40 Billed Treatment Time 1, FA x 25minutes, Ex x 15minutes CARLITA HOWELL OT Sep 12, 2020 12:02
[2020-09-12] MEDS: PIPERACILLIN/TAZOBACTAM (BULK) 4.5 GM in NS (IVPB) 100 ML IV SCH ×2 (14:19→22:04)
--- NOTE | 2020-09-12 14:33 | Physical Therapy Daily Note ---
PT Daily Note-Current Subjective Patient reported no pain complaints pre tx. Patient was seated upright in chair and consented to therapy. Appearance Patient seated upright in chair with and NAEEM in room. All needs met. Mental Status Patient Orientation: Person, Place, Time, Normal For Age Transfers SCALE: Activities may be completed with or without assistive devices. 8-Gpgwmtzyzr-mwijahz completes the activity by him/herself with no assistance from a helper. 5-Set-up or Clean-up Assistance-helper sets up or cleans up; patient completes activity. [place] assists only prior to or following the activity. 4-Supervision or Touching Assistance-helper provides verbal cues and/or touching/steadying and/or contact guard assistance as patient completes activity. Assistance may be provided throughout the activity or intermittently. 3-Partial/Moderate Assistance-helper does LESS THAN HALF the effort. [place] lifts, holds or supports trunk or limbs, but provides less than half the effort. 2-Substantial/Maximal Assistance-helper does MORE THAN HALF the effort. [place] lifts or holds trunk or limbs and provides more than half the effort. 9-Zqavuyewn-xknhah does ALL the effort. Patient does none of the effort to complete the activity. Or, the assistance of 2 or more helpers is required for the patient to complete the activity. If activity was not attempted, code reason: 7-Patient Refused. 9-Not Applicable-not attempted and the patient did not perform the activity before the current illness, exacerbation or injury. 10-Not Attempted due to Environmental Limitations-(lack of equipment, weather restraints, etc.). 88-Not Attempted due to Medical Conditions or Safety Concerns. Sit to Stand (QC): 4 Toilet Transfer (QC): 4 SBA Gait Training Distance: 120'x2 Walk 10 feet (QC): 4 Walk 50 ft with 2 Turns(QC): 4 Gait Assistive Device: FWW Exercises NuStep Minutes: 15 NuStep Workload: 4 Treatments LE strengthening, ROM, endurance Assessment Current Status: Good Progress Patient was motivated to participate in therapy during today's session. PT Short Term Goals Short Term Goals Time Frame: Sep 15, 2020 Roll Left & Right: 6 Sit to lyin Lying to sitting on side of be: 6 Sit to stand: 5 Chair/oqm-xx-clxfw transfer: 5 Toilet transfer: 5 Walk 10 feet: 5 Walk 50 feet with two turns: 5 Walk 150 feet: 5 Walking 10ft on uneven surface: 5 1 step (curb): 5 4 steps: 5 Picking up objects: 4 PT Banking Representative Goals Jail Goals PT Jail Goals Time Frame: Oct 06, 2020 Roll Left & Right (QC): 6 Sit to Lying (QC): 6 Lying-Sitting on Side/Bed(QC): 6 Sit to Stand (QC): 6 Chair/Dli-dg-Kitqb Xfer(QC): 6 Toilet Transfer (QC): 6 Car Transfer (QC): 6 Does the Patient Walk: Yes Walk 10 feet (QC): 6 Walk 50ft with 2 Turns (QC): 6 Walk 150 ft (QC): 6 Walking 10ft on Uneven Surface: 6 1 Step (curb) (QC): 6 4 Steps (QC): 6 12 Steps (QC): 88 Picking up an Object (QC): 6 Does the Pt use WC or Scooter?: No Wheel 50 feet with 2 turns (QC: 9 Wheel 150 feet: 9 PT Plan Problem List Problem List: Activity Tolerance, Functional Strength, Safety, Balance, Gait, Transfer, Bed Mobility, ROM Treatment/Plan Treatment Plan: Continue Plan of Care Treatment Plan: Education, Functional Activity Jose, Functional Strength, Group Therapy, Gait, Safety, Therapeutic Exercise, Transfers Treatment Duration: Oct 06, 2020 Frequency: At least 5 of 7 days/Wk (IRF) Estimated Hrs Per Day: 1.5 hours per day Patient and/or Family Agrees t: Yes Safety Risks/Education Patient Education: Gait Training, Transfer Techniques, Correct Positioning, Safety Issues Teaching Recipient: Patient Teaching Methods: Demonstration, Audiovisual Response to Teaching: Verbalize Understanding, Return Demonstration Time/GCodes Time In: 1305 Time Out: 1335 Total Billed Treatment Time: 30 Total Billed Treatment 1 visit: EX: 15' FA: 15' JAMES WONG PT Sep 12, 2020 14:33
[2020-09-12 16:01] VITALS: BP 141/65
[2020-09-13] MEDS: RT-ALBUTEROL/IPRATROPIUM 3 ML (DUONEB) VIAL INH SCH ×6 (01:58→21:34)
[2020-09-13] MEDS: ACETAMINOPHEN 325 MG TABLET PO SCH ×6 (02:52→23:01)
[2020-09-13] MEDS: PIPERACILLIN/TAZOBACTAM (BULK) 4.5 GM in NS (IVPB) 100 ML IV SCH ×3 (05:22→21:43)
[2020-09-13] MEDS: SUCRALFATE 1 GM (CARAFATE) TAB PO SCH ×4 (05:23→20:15)
[2020-09-13 06:00] VITALS: BP 161/75
[2020-09-13 06:31] LABS: BASOPHILS % (AUTO) 0 % (0-10); EOSINOPHILS % (AUTO) 0 % (0-10); HEMATOCRIT 37 % (40-54); HEMOGLOBIN 12.1 g/dL (13.3-17.7); LYMPHOCYTES # (AUTO) 0.3 10^3/uL (1.0-4.0); LYMPHOCYTES % (AUTO) 2 % (12-44); MEAN CORPUSCULAR HEMOGLOBIN 30 pg (25-34); MEAN CORPUSCULAR HGB CONC 33 g/dL (32-36); MEAN CORPUSCULAR VOLUME 92 fL (80-99); MEAN PLATELET VOLUME 10.3 fL (9.0-12.2); MONOCYTES # (AUTO) 0.6 10^3/uL (0.0-1.0); MONOCYTES % (AUTO) 3 % (0-12); NEUTROPHILS # (AUTO) 18.5 10^3/uL (1.8-7.8); NEUTROPHILS % (AUTO) 94 % (42-75); PLATELET COUNT 117 10^3/uL (130-400); WHITE BLOOD COUNT 19.8 10^3/uL (4.3-11.0)
[2020-09-13 06:43] LABS: ALBUMIN 3.2 GM/DL (3.2-4.5); POTASSIUM 4.6 MMOL/L (3.6-5.0)
[2020-09-13 06:45] LABS: CALCIUM 8.8 MG/DL (8.5-10.1)
[2020-09-13 06:46] LABS: TOTAL PROTEIN 5.4 GM/DL (6.4-8.2)
[2020-09-13 06:48] LABS: BILIRUBIN,TOTAL 1.2 MG/DL (0.1-1.0)
[2020-09-13 06:49] LABS: CREATININE SERUM 1.27 MG/DL (0.60-1.30)
[2020-09-13] MEDS: aCETylcysteine 20% (MUCOMYST) 30ML SOLN VIAL INH SCH ×2 (06:49→21:34)
[2020-09-13] MEDS: RT--FLUTICASONE/SALMETEROL 113-14 (AIRDUO RespiCLICK) IH SCH ×2 (06:49→21:34)
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
[2020-09-13] MEDS: methylPREDNISolone 40 MG/ML (Solu-MEDROL) VIAL IV SCH ×2 (08:41→20:14)
[2020-09-13] MEDS: TERAZOSIN 5 MG (HYTRIN) CAPSULE PO SCH (08:46)
[2020-09-13] MEDS: FINASTERIDE (PROSCAR) 5 MG TAB PO SCH (08:46)
[2020-09-13] MEDS: guaiFENesin (MUCINEX) 600 MG TAB PO SCH (08:46)
[2020-09-13] MEDS: PANTOPRAZOLE 40 MG (PROTONIX) TAB PO SCH (08:46)
--- NOTE | 2020-09-13 08:46 | Pulmonary Progress Note ---
Subjective Time Seen by a Provider: 07:00 Subjective/Events-last exam No complications noted. Sepsis Event Evaluation Height, Weight, BMI Height: 5'10.00" Weight: 199lbs. 16.0oz. [id number]; 26.06 BMI Method: Focused Exam Lactate Level 09/12/20 06:15: Lactic Acid Level 1.29 09/13/20 06:24: Lactic Acid Level 1.60 Lactic Acid Level Laboratory Tests Test 09/13/20 06:24 Lactic Acid Level 1.60 MMOL/L (0.50-2.00) Exam Exam Vital Signs Date Time Temp Pulse Resp B/P (MAP) Pulse Ox O2 Delivery O2 Flow Rate FiO2 09/13/20 06:51 98 Room Air 09/13/20 06:50 98 Room Air 09/13/20 06:00 36.6 89 18 161/75 (103) 92 09/13/20 01:58 98 Room Air 09/12/20 21:10 98 Room Air 09/12/20 20:00 Room Air 09/12/20 18:33 91 Room Air 09/12/20 17:35 Room Air 09/12/20 16:01 37.0 91 18 141/65 (90) 92 09/12/20 14:22 91 Room Air 09/12/20 10:38 90 Room Air 09/12/20 09:11 Room Air I & O 09/13/20 07:00 Intake Total 1880 ml Balance 1880 ml Height & Weight Height: 5'10.00" Weight: 199lbs. 16.0oz. [id number]; 26.06 BMI Method: General Appearance: No Apparent Distress, WD/WN, Chronically ill HEENT: PERRL/EOMI, Pharynx Normal, Other (severe [place], facial injuries with sutured left face) Neck: Full Range of Motion, Normal Inspection, Non Tender, Supple, Carotid Bruit Respiratory: Chest Non Tender, No Accessory Muscle Use, No Respiratory Distress , Crackles, Decreased Breath Sounds, Wheezing Cardiovascular: Regular Rate, Rhythm, No Edema, No Gallop, No JVD, No Murmur, Normal Peripheral Pulses Extremity: Normal Capillary Refill, Normal Inspection, Normal Range of Motion, Non Tender, No Calf Tenderness, No Pedal Edema Neurologic/Psychiatric: Alert, Oriented x3, No Motor/Sensory Deficits, Normal Mood/Affect Skin: Normal Color, Warm/Dry Lymphatic: No Adenopathy Results Lab Laboratory Tests 09/12/20 06:15 09/13/20 06:24 Assessment/Plan Assessment/Plan COPDAE with ILD -Duonebs - Solumedrol 40 IV Q 12 currently -Pt is on RA PNA -Zosyn -Monitor Facial/head trauma Subdural hematoma FABY VORA DO Sep 13, 2020 08:46
[2020-09-13] MEDS: polyethylene glycoL POWDER 17 GM (MIRALAX) PACK PO SCH ×2 (08:47→19:51)
[2020-09-13] MEDS: SENNA W/DOCUSATE (SENOKOT S) TABLET PO SCH ×2 (08:47→19:51)
[2020-09-13] MEDS: GENTAMICIN 0.3% OPHTH SOLN 5 ML LEFT EAR SCH ×3 (08:50→20:15)
[2020-09-13 08:51] VITALS: BP 176/77
--- NOTE | 2020-09-13 09:13 | Occupational Ther Daily Note ---
OT Current Status-Daily Note Subjective No pain reported. Appearance Pt. up on side of bed. Agrees to work with OT. Mental Status/Objective Patient Orientation: Person, Place, Time, Situation ADL-Treatment Therapy Code Descriptions/Definitions Functional [place] Measure: 0=Not Assessed/NA 4=Minimal Assistance 1=Total Assistance 5=Supervision or Setup 2=Maximal Assistance 6=Modified [place] 3=Moderate Assistance 7=Complete IndependenceSCALE: Activities may be completed with or without assistive devices. 3-Jjhiykgyfc-bggozby completes the activity by him/herself with no assistance from a helper. 5-Set-up or Clean-up Assistance-helper sets up or cleans up; patient completes activity. [place] assists only prior to or following the activity. 4-Supervision or Touching Assistance-helper provides verbal cues and/or touching/steadying and/or contact guard assistance as patient completes activity. Assistance may be provided throughout the activity or intermittently. 3-Partial/Moderate Assistance-helper does LESS THAN HALF the effort. [place] lifts, holds or supports trunk or limbs, but provides less than half the effort. 2-Substantial/Maximal Assistance-helper does MORE THAN HALF the effort. [place] lifts or holds trunk or limbs and provides more than half the effort. 4-Xrbwzdlnt-wshwjt does ALL the effort. Patient does none of the effort to complete the activity. Or, the assistance of 2 or more helpers is required for the patient to complete the activity. If activity was not attempted, code reason: 7-Patient Refused. 9-Not Applicable-not attempted and the patient did not perform the activity before the current illness, exacerbation or injury. 10-Not Attempted due to Environmental Limitations-(lack of equipment, weather restraints, etc.). 88-Not Attempted due to Medical Conditions or Safety Concerns. Eating (QC): 6 Oral Hygiene (QC): 5 (Set up at sink to brush teeth.) Shower/Bathe Self (QC): 4 (SBA in shower.) Upper Body Dressing (QC): 5 Lower Body Dressing (QC): 5 On/Off Footwear: 6 Toileting Hygiene (QC): 6 Toilet Transfer (QC): 4 (SBA to ambulate to toilet with walker and transfer to toilet.) Other Treatment Pt. agrees to treatment. Completed toileting task and then showering/dressing task with OT present. Pt. doing well. Tasks take increased time only when communication occurs due to very PILOT ST[place]. All communication takes place with dry erase board from therapist. All needs met back in chair after shower. Education OT Patient Education: Correct positioning, Modified ADL techniques, Progress toward Goal/Update tx plan, Purpose of tx/functional activities, Reviewed precautions, Rehab process, Transfer techniques Teaching Recipient: Patient Teaching Methods: Demonstration, Discussion Response to Teaching: Verbalize Understanding, Return Demonstration OT Short Term Goals Short Term Goals Time Frame: Sep 15, 2020 Shower/bathe self: 5 Lower body dressin Putting on/taking off footwear: 5 OT Usp Goals Seat Trimmer Goals Time Frame: Sep 29, 2020 Eating (QC): 6 Oral Hygiene (QC): 6 Toileting Hygiene (QC): 6 Shower/Bathe Self (QC): 6 Upper Body Dressing (QC): 6 Lower Body Dressing (QC): 6 On/Off Footwear (QC): 6 Additional Goals: 1-Demonstrate ADL Tasks, 2-Verbalize Understanding, 3-Impro veStrength/Jose 1=Demonstrate adherence to instructed precautions during ADL tasks. 2=Patient will verbalize/demonstrate understanding of assistive devices/modifications for ADL. 3=Patient will improve strength/tolerance for activity to enable patient to perform ADL's. OT Education/Plan Problem List/Assessment Assessment: Decreased Activ Tolerance Discharge Recommendations Plan/Recommendations: Continue POC Therapy Discharge Recommendati: Post Acute OT Treatment Plan/Plan of Care Treatment,Training & Education: Yes Patient would benefit from OT for education, treatment and training to promote independence in ADL's, mobility, safety and/or upper extremity function for ADL's. Plan of Care: ADL Retraining, Functional Mobility, Group Exercise/Act as Ind, UE Funct Exercise/Act Treatment Duration: Sep 29, 2020 Frequency: At least 5 of 7 days/Wk (IRF) Estimated Hrs Per Day: 1.5 hours per day Agreement: Yes Rehab Potential: Good Time/GCodes Start Time: 08:15 Stop Time: 09:00 Total Time Billed (hr/min): 45 Billed Treatment Time 1, ADL x 3 CARLITA HOWELL OT Sep 13, 2020 09:13
--- NOTE | 2020-09-13 12:17 | Physical Therapy Daily Note ---
PT Daily Note-Current Subjective Pt sitting in recliner upon arrival. Pt is [facility] and uses [employer] board to communicate. Pt agrees to PT. Pain Location: No Pain Reported Mental Status Patient Orientation: Person, Place, Situation Attachments: IV Transfers SCALE: Activities may be completed with or without assistive devices. 7-Bjkygwhtva-tmhhlko completes the activity by him/herself with no assistance from a helper. 5-Set-up or Clean-up Assistance-helper sets up or cleans up; patient completes activity. [place] assists only prior to or following the activity. 4-Supervision or Touching Assistance-helper provides verbal cues and/or touching/steadying and/or contact guard assistance as patient completes activity. Assistance may be provided throughout the activity or intermittently. 3-Partial/Moderate Assistance-helper does LESS THAN HALF the effort. [place] lifts, holds or supports trunk or limbs, but provides less than half the effort. 2-Substantial/Maximal Assistance-helper does MORE THAN HALF the effort. [place] lifts or holds trunk or limbs and provides more than half the effort. 5-Lcjhosfpb-bfvole does ALL the effort. Patient does none of the effort to complete the activity. Or, the assistance of 2 or more helpers is required for the patient to complete the activity. If activity was not attempted, code reason: 7-Patient Refused. 9-Not Applicable-not attempted and the patient did not perform the activity before the current illness, exacerbation or injury. 10-Not Attempted due to Environmental Limitations-(lack of equipment, weather restraints, etc.). 88-Not Attempted due to Medical Conditions or Safety Concerns. Sit to Stand (QC): 5 Weight Bearing Full Weight Bearing Full Weight Bearing Gait Training Does the Patient Walk?: Yes Distance: 150' Walk 10 feet (QC): 4 Walk 50 ft with 2 Turns(QC): 4 Gait Assistive Device: Cane Small Base Quad CUSTOM DRESSMAKER close SBA-CGA due to stability. Wheelchair Training Does the Pt Use a Wheelchair?: No Stair Training Stair Training: Handrails/: 2 handrails #of Steps: 4 1 Step (curb) (QC): 4 4 Steps (QC): 4 Stairs: Pattern: Step to Exercises Standing: Hamstring curls, Heel/toe raises, Marching, Mini squats, Weight shifts NuStep Minutes: 15 NuStep Workload: 3 Treatments TF to standing amd amb. in hallway. Pt uses NuStep then short RB followed by Standing Ex at //bars. Pt completes 1 set of 4 steps then returns to room to rest at end of tx. All needs met, call light in hand. Assessment Current Status: Good Progress Pt nomi. tx well but needs more practice with SBQC if using at home. PT Short Term Goals Short Term Goals Time Frame: Sep 15, 2020 Roll Left & Right: 6 Sit to lyin Lying to sitting on side of be: 6 Sit to stand: 5 Chair/gwj-go-hambu transfer: 5 Toilet transfer: 5 Walk 10 feet: 5 Walk 50 feet with two turns: 5 Walk 150 feet: 5 Walking 10ft on uneven surface: 5 1 step (curb): 5 4 steps: 5 Picking up objects: 4 PT Usp Goals Consumer Loan Officer Goals PT Consumer Loan Officer Goals Time Frame: Oct 06, 2020 Roll Left & Right (QC): 6 Sit to Lying (QC): 6 Lying-Sitting on Side/Bed(QC): 6 Sit to Stand (QC): 6 Chair/Dsu-th-Efhqi Xfer(QC): 6 Toilet Transfer (QC): 6 Car Transfer (QC): 6 Does the Patient Walk: Yes Walk 10 feet (QC): 6 Walk 50ft with 2 Turns (QC): 6 Walk 150 ft (QC): 6 Walking 10ft on Uneven Surface: 6 1 Step (curb) (QC): 6 4 Steps (QC): 6 12 Steps (QC): 88 Picking up an Object (QC): 6 Does the Pt use WC or Scooter?: No Wheel 50 feet with 2 turns (QC: 9 Wheel 150 feet: 9 PT Plan Problem List Problem List: Activity Tolerance, Gait Treatment/Plan Treatment Plan: Continue Plan of Care Treatment Plan: Education, Functional Activity Jose, Functional Strength, Group Therapy, Gait, Safety, Therapeutic Exercise, Transfers Treatment Duration: Oct 06, 2020 Frequency: At least 5 of 7 days/Wk (IRF) Estimated Hrs Per Day: 1.5 hours per day Patient and/or Family Agrees t: Yes Safety Risks/Education Patient Education: Gait Training, Correct Positioning, Safety Issues Teaching Recipient: Patient Teaching Methods: Discussion Response to Teaching: Verbalize Understanding Time/GCodes Time In: 900 Time Out: 1000 Total Billed Treatment Time: 60 Total Billed Treatment 1, GT (15m), EX x2 (30m) & FA (15m) LISBET LEVINE CUSTOM DRESSMAKER Sep 13, 2020 12:17
--- NOTE | 2020-09-13 14:16 | Occupational Ther Daily Note ---
OT Current Status-Daily Note Subjective No pain reported. Appearance Pt. in chair in gym after PT session. Agrees to work with therapy. Mental Status/Objective Patient Orientation: Person, Place, Time, Situation Attachments: IV ADL-Treatment Therapy Code Descriptions/Definitions Functional [place] Measure: 0=Not Assessed/NA 4=Minimal Assistance 1=Total Assistance 5=Supervision or Setup 2=Maximal Assistance 6=Modified [place] 3=Moderate Assistance 7=Complete IndependenceSCALE: Activities may be completed with or without assistive devices. 7-Gzibeoahst-yjrexbx completes the activity by him/herself with no assistance from a helper. 5-Set-up or Clean-up Assistance-helper sets up or cleans up; patient completes activity. [place] assists only prior to or following the activity. 4-Supervision or Touching Assistance-helper provides verbal cues and/or touching/steadying and/or contact guard assistance as patient completes activity. Assistance may be provided throughout the activity or intermittently. 3-Partial/Moderate Assistance-helper does LESS THAN HALF the effort. [place] lifts, holds or supports trunk or limbs, but provides less than half the effort. 2-Substantial/Maximal Assistance-helper does MORE THAN HALF the effort. [place] lifts or holds trunk or limbs and provides more than half the effort. 8-Etsjuhxdf-ijorxl does ALL the effort. Patient does none of the effort to complete the activity. Or, the assistance of 2 or more helpers is required for the patient to complete the activity. If activity was not attempted, code reason: 7-Patient Refused. 9-Not Applicable-not attempted and the patient did not perform the activity before the current illness, exacerbation or injury. 10-Not Attempted due to Environmental Limitations-(lack of equipment, weather restraints, etc.). 88-Not Attempted due to Medical Conditions or Safety Concerns. Other Treatment Pt. completed 4 bilateral UE exercises with PVC pipe, x 10 reps each in all directions. Pt. tolerated treatment well with increased time and effort due to discomfort in ribs. Pt. also completed 15 minutes on arm bike x mod resistance with several brief rest breaks, for increased endurance and strengthening. Tolerated this well. Ambulated back to room with hurri-cane and CGA. All needs met. Education OT Patient Education: Correct positioning, Exercise program, Modified ADL techniques, Progress toward Goal/Update tx plan, Purpose of tx/functional activities, Reviewed precautions, Rehab process, Transfer techniques Teaching Recipient: Patient Teaching Methods: Demonstration, Discussion Response to Teaching: Verbalize Understanding, Return Demonstration OT Short Term Goals Short Term Goals Time Frame: Sep 15, 2020 Shower/bathe self: 5 Lower body dressin Putting on/taking off footwear: 5 OT Leather Grader Goals Leather Grader Goals Time Frame: Sep 29, 2020 Eating (QC): 6 Oral Hygiene (QC): 6 Toileting Hygiene (QC): 6 Shower/Bathe Self (QC): 6 Upper Body Dressing (QC): 6 Lower Body Dressing (QC): 6 On/Off Footwear (QC): 6 Additional Goals: 1-Demonstrate ADL Tasks, 2-Verbalize Understanding, 3- ImproveStrength/Jose 1=Demonstrate adherence to instructed precautions during ADL tasks. 2=Patient will verbalize/demonstrate understanding of assistive devices/modifications for ADL. 3=Patient will improve strength/tolerance for activity to enable patient to perform ADL's. OT Education/Plan Problem List/Assessment Assessment: Decreased Activ Tolerance Discharge Recommendations Plan/Recommendations: Continue POC Therapy Discharge Recommendati: Post Acute OT Treatment Plan/Plan of Care Treatment,Training & Education: Yes Patient would benefit from OT for education, treatment and training to promote independence in ADL's, mobility, safety and/or upper extremity function for ADL's. Plan of Care: ADL Retraining, Functional Mobility, Group Exercise/Act as Ind, UE Funct Exercise/Act Treatment Duration: Sep 29, 2020 Frequency: At least 5 of 7 days/Wk (IRF) Estimated Hrs Per Day: 1.5 hours per day Agreement: Yes Rehab Potential: Good Time/GCodes Start Time: 10:00 Stop Time: 10:45 Total Time Billed (hr/min): 45 Billed Treatment Time 1, Ex x 3 CARLITA HOWELL OT Sep 13, 2020 14:16
--- NOTE | 2020-09-13 14:44 | Physical Therapy Daily Note ---
PT Daily Note-Current Subjective Pt sitting in recliner upon arrival. Pt agrees to PT but asks to use BR. Pain Location: No Pain Reported Mental Status Patient Orientation: Person, Place, Situation Attachments: IV Transfers SCALE: Activities may be completed with or without assistive devices. 0-Gbysovngrz-vsonezp completes the activity by him/herself with no assistance from a helper. 5-Set-up or Clean-up Assistance-helper sets up or cleans up; patient completes activity. [place] assists only prior to or following the activity. 4-Supervision or Touching Assistance-helper provides verbal cues and/or touching/steadying and/or contact guard assistance as patient completes activity. Assistance may be provided throughout the activity or intermittently. 3-Partial/Moderate Assistance-helper does LESS THAN HALF the effort. [place] lifts, holds or supports trunk or limbs, but provides less than half the effort. 2-Substantial/Maximal Assistance-helper does MORE THAN HALF the effort. [place] lifts or holds trunk or limbs and provides more than half the effort. 8-Mrwcaivsp-kmxyeh does ALL the effort. Patient does none of the effort to complete the activity. Or, the assistance of 2 or more helpers is required for the patient to complete the activity. If activity was not attempted, code reason: 7-Patient Refused. 9-Not Applicable-not attempted and the patient did not perform the activity before the current illness, exacerbation or injury. 10-Not Attempted due to Environmental Limitations-(lack of equipment, weather restraints, etc.). 88-Not Attempted due to Medical Conditions or Safety Concerns. Sit to Stand (QC): 5 Toilet Transfer (QC): 5 Weight Bearing Full Weight Bearing Full Weight Bearing Gait Training Does the Patient Walk?: Yes Distance: 150' x2 Walk 10 feet (QC): 4 Walk 50 ft with 2 Turns(QC): 4 Walk 150 ft (QC): 4 Gait Persons Needed: 1 Gait Assistive Device: Cane Small Base Quad Pt is more fatigued in afternoon session and more unstable when ambulating but no LOB. Wheelchair Training Does the Pt Use a Wheelchair?: No Exercises Seated Therapy Exercises: Ankle pumps, Long arc quads, Hip flexion, Kicking activity, Glut set Seated Reps: 20 Treatments TF to standing, uses BR then amb. in hallway. Pt completes Seated Ex then takes short RB before returning to room. Pt resting in recliner with all needs met, call light in hand. Assessment Current Status: Good Progress Pt fatigued by end of session. PT Short Term Goals Short Term Goals Time Frame: Sep 15, 2020 Roll Left & Right: 6 Sit to lyin Lying to sitting on side of be: 6 Sit to stand: 5 Chair/jrb-zv-krrvx transfer: 5 Toilet transfer: 5 Walk 10 feet: 5 Walk 50 feet with two turns: 5 Walk 150 feet: 5 Walking 10ft on uneven surface: 5 1 step (curb): 5 4 steps: 5 Picking up objects: 4 PT Jail Goals Jail Goals PT Radiological Health Specialist Goals Time Frame: Oct 06, 2020 Roll Left & Right (QC): 6 Sit to Lying (QC): 6 Lying-Sitting on Side/Bed(QC): 6 Sit to Stand (QC): 6 Chair/Tvn-ez-Mwcbu Xfer(QC): 6 Toilet Transfer (QC): 6 Car Transfer (QC): 6 Does the Patient Walk: Yes Walk 10 feet (QC): 6 Walk 50ft with 2 Turns (QC): 6 Walk 150 ft (QC): 6 Walking 10ft on Uneven Surface: 6 1 Step (curb) (QC): 6 4 Steps (QC): 6 12 Steps (QC): 88 Picking up an Object (QC): 6 Does the Pt use WC or Scooter?: No Wheel 50 feet with 2 turns (QC: 9 Wheel 150 feet: 9 PT Plan Problem List Problem List: Activity Tolerance Treatment/Plan Treatment Plan: Continue Plan of Care Treatment Plan: Education, Functional Activity Jose, Functional Strength, Group Therapy, Gait, Safety, Therapeutic Exercise, Transfers Treatment Duration: Oct 06, 2020 Frequency: At least 5 of 7 days/Wk (IRF) Estimated Hrs Per Day: 1.5 hours per day Patient and/or Family Agrees t: Yes Safety Risks/Education Patient Education: Gait Training, Correct Positioning, Safety Issues Teaching Recipient: Patient Teaching Methods: Discussion Response to Teaching: Verbalize Understanding Time/GCodes Time In: 1335 Time Out: 1405 Total Billed Treatment Time: 30 Total Billed Treatment 1, EX (15m) & GT (15m) LISBET LEVINE DIGITAL COMMUNITY MANAGER Sep 13, 2020 14:44
[2020-09-13] MEDS ORDERED: GENT5DRO30 LEFT EAR (14:59)
[2020-09-13 17:04] VITALS: BP 160/74
--- NOTE | 2020-09-13 17:19 | Podiatry Progress Note ---
Standard Progress Note Progress Notes/Assess & Plan Date Seen by a Provider: Sep 13, 2020 Time Seen by a Provider: 17:19 Progress/Assessment & Plan Foot consultation dictated. Foot care given. Final Diagnosis Onychomycosis, Neuropathy, RA KAMILLA VAZ DPM Sep 13, 2020 17:19
--- NOTE | 2020-09-13 21:51 | CONSULTATION REPORT ---
DATE OF SERVICE: REASON FOR CONSULTATION: Foot care. HISTORY OF PRESENT ILLNESS: This 85-year-old male was admitted to [facility] secondary to an accident with a cow and a metal gate hitting the patient in the face resulting in facial injuries, laceration and subdermal hematoma. He has also been seen by Dr. Hahn for bilateral ear infections. He is unable to reach for and care for his feet and he is complaining about long toenails are uncomfortable for him at this time. PAST MEDICAL HISTORY: The patient has a past medical history of cholecystectomy, tonsillectomy, abdominal surgery, emphysema, pneumonia, benign prostatic hyperplasia, kidney stones, hiatal hernia, rheumatoid arthritis, profound hearing loss, bilateral hearing aids. SOCIAL HISTORY: The patient is a retired root, rancher, does not smoke tobacco and no history of alcohol abuse. PHYSICAL EXAMINATION: GENERAL: The patient is a well-developed male, in no apparent distress. EXTREMITIES: He has a 2/4 pedal pulses bilaterally. Cap refill time is less than 3 seconds to the hallux bilaterally. NEUROLOGIC: The patient has intact protective sensation with 10 gram monofilament wire examination bilaterally. Diminished vibratory sensation to the forefoot bilaterally. The patient has long, thick toenails x10. There is some dystrophic mycotic changes to the R1 toenail. MUSCULOSKELETAL FINDINGS: The patient has 5/5 muscle strength to the four major quadrants of the foot bilaterally. ASSESSMENT: 1. Neuropathy idiopathic. 2. Onychomycosis. 3. Rheumatoid arthritis. PLAN: Vaious treatment options were discussed with the patient today. His toenails were debrided manually mechanically. Betadine applied. The patient is welcome to follow up in the office upon discharge for further treatment, which may include oral and topical antifungal medications. The patient may have difficulty reaching for and caring for his feet in his future and may need further assistance for generalized foot care. I am happy to provide that as necessary. Job ID: [id number] DocumentID: [id number] Dictated Date: 09/13/2020 17:18:49 Business Proposal Rep Date: 09/13/2020 21:51:02 Dictated By: PAWEL SOLORIO
[2020-09-14] MEDS: RT-ALBUTEROL/IPRATROPIUM 3 ML (DUONEB) VIAL INH SCH ×4 (02:23→18:15)
[2020-09-14] MEDS: ACETAMINOPHEN 325 MG TABLET PO SCH ×6 (03:17→23:09)
[2020-09-14 05:25] VITALS: BP 171/81
[2020-09-14] MEDS: PIPERACILLIN/TAZOBACTAM (BULK) 4.5 GM in NS (IVPB) 100 ML IV SCH ×3 (05:42→21:25)
[2020-09-14] MEDS: SUCRALFATE 1 GM (CARAFATE) TAB PO SCH ×4 (05:42→20:06)
--- NOTE | 2020-09-14 07:12 | Progress Note ---
Standard Progress Note Progress Notes/Assess & Plan Date Seen by a Provider: Sep 14, 2020 Time Seen by a Provider: 06:45 Progress/Assessment & Plan [facility] Patient seen/Evaluated FAcial Fractures -need no surgical repair-will heal no nose blowing for 2-3 weeks Ears- right ear for many years left ear-tube in place but plugged-patient really can't hear anything will come back later this morning and see if I can remove the tube, suciton out the ear adn then palce a new tube so he can at leasts hear some-will also bring a battery for his hearing aid so he can begin to use it as w shama may try and replace the tube down inthe pre-op area where I have some help and also suction probably reinaldo barnes between 11 and noon when I can make it back to do that [facility]-09/14 Note left in room for patient patient sleeping-did not wake up Face-looks good-healing well Left Ear-no drainge-can hear noise but can't discriminate speech once out of hospital-reinaldo quigley specification manager see in clinic to see if wecan do anythingto help most likely will need evaluation in for a cochlear implant ifhe qualifies-we reinaldo lopes for that evaluation once he is out ofrehab Focused Exam Lactate Level 09/12/20 06:15: Lactic Acid Level 1.29 09/13/20 06:24: Lactic Acid Level 1.60 AMELIA DE LA CRUZ MD Sep 14, 2020 07:12
[2020-09-14] MEDS: SENNA W/DOCUSATE (SENOKOT S) TABLET PO SCH ×2 (09:00→19:20)
[2020-09-14] MEDS: polyethylene glycoL POWDER 17 GM (MIRALAX) PACK PO SCH ×2 (09:00→19:20)
--- NOTE | 2020-09-14 09:05 | Physical Therapy Daily Note ---
PT Daily Note-Current Subjective Pt agreed to Rx. Pt states his shoulder is sore today from therapy yesterday. Pt expressed he needed a rest break after Nustep. Pain Location: No Pain Reported Mental Status Patient Orientation: Person, Place, Time, Situation Attachments: Other-See Comments (mask while outside of room), IV Transfers SCALE: Activities may be completed with or without assistive devices. 2-Rghctvllbr-mwqzsqi completes the activity by him/herself with no assistance from a helper. 5-Set-up or Clean-up Assistance-helper sets up or cleans up; patient completes activity. [place] assists only prior to or following the activity. 4-Supervision or Touching Assistance-helper provides verbal cues and/or touc last/steadying and/or contact guard assistance as patient completes activity. Assistance may be provided throughout the activity or intermittently. 3-Partial/Moderate Assistance-helper does LESS THAN HALF the effort. [place] lifts, holds or supports trunk or limbs, but provides less than half the effort. 2-Substantial/Maximal Assistance-helper does MORE THAN HALF the effort. [place] lifts or holds trunk or limbs and provides more than half the effort. 3-Bxfdtghnt-uvlnle does ALL the effort. Patient does none of the effort to complete the activity. Or, the assistance of 2 or more helpers is required for the patient to complete the activity. If activity was not attempted, code reason: 7-Patient Refused. 9-Not Applicable-not attempted and the patient did not perform the activity before the current illness, exacerbation or injury. 10-Not Attempted due to Environmental Limitations-(lack of equipment, weather restraints, etc.). 88-Not Attempted due to Medical Conditions or Safety Concerns. Sit to Stand (QC): 6 Weight Bearing Full Weight Bearing Full Weight Bearing Gait Training Does the Patient Walk?: Yes Walk 10 feet (QC): 6 Walk 50 ft with 2 Turns(QC): 5 Gait Assistive Device: FWW Pt amb 60 ft c/ FWW and needed CGA while performing gait from room to therapy gym but did not need any verbal cues. Pt did not need any assistance while amb in // and retro walking. Wheelchair Training Does the Pt Use a Wheelchair?: No Stair Training Stair Training: Handrails/: 1 handrail #of Steps: 4 Pt utilizes reciprocal gait pattern while ascending stairs and uses step to gait pattern while descending. Exercises Seated Therapy Exercises: Ankle pumps, Sit to stand, Long arc quads, Glut set Standing: Hip Abduction, Hamstring curls, 3 way Ex=Flex, Abd, Ext, Marching, Retro gait, Side steps Standing Reps: 15 NuStep Minutes: 15 NuStep Workload: 4 Treatments TF to standing and amb. in hallway. Pt uses NuStep then Standing EX at //bars. Pt completes Seated Ex then takes RB. Pt completes set of 4 steps. OT arrives at end of tx to start OT tx. Assessment Current Status: Good Progress Pt takes RB after standing EX in //bars. Pt nomi. tx well. PT Short Term Goals Short Term Goals Time Frame: Sep 15, 2020 Roll Left & Right: 6 Sit to lyin Lying to sitting on side of be: 6 Sit to stand: 5 Chair/zzd-jf-ozaou transfer: 5 Toilet transfer: 5 Walk 10 feet: 5 Walk 50 feet with two turns: 5 Walk 150 feet: 5 Walking 10ft on uneven surface: 5 1 step (curb): 5 4 steps: 5 Picking up objects: 4 PT Specialist Managers Goals Specialist Managers Goals PT Specialist Managers Goals Time Frame: Oct 06, 2020 Roll Left & Right (QC): 6 Sit to Lying (QC): 6 Lying-Sitting on Side/Bed(QC): 6 Sit to Stand (QC): 6 Chair/Yyl-jc-Dpenb Xfer(QC): 6 Toilet Transfer (QC): 6 Car Transfer (QC): 6 Does the Patient Walk: Yes Walk 10 feet (QC): 6 Walk 50ft with 2 Turns (QC): 6 Walk 150 ft (QC): 6 Walking 10ft on Uneven Surface: 6 1 Step (curb) (QC): 6 4 Steps (QC): 6 12 Steps (QC): 88 Picking up an Object (QC): 6 Does the Pt use WC or Scooter?: No Wheel 50 feet with 2 turns (QC: 9 Wheel 150 feet: 9 PT Plan Treatment/Plan Treatment Plan: Continue Plan of Care Treatment Plan: Education, Functional Activity Jose, Functional Strength, Group Therapy, Gait, Safety, Therapeutic Exercise, Transfers Treatment Duration: Oct 06, 2020 Frequency: At least 5 of 7 days/Wk (IRF) Estimated Hrs Per Day: 1.5 hours per day Patient and/or Family Agrees t: Yes Safety Risks/Education Patient Education: Correct Positioning Teaching Recipient: Patient Teaching Methods: Discussion Response to Teaching: Verbalize Understanding Time/GCodes Time In: 800 Time Out: 900 Total Billed Treatment Time: 60 Total Billed Treatment 1, GT (15m), EX x2 (30m) & FA (15m) LISBET LEVINE CLOTH MERCERIZER BACK TENDER Sep 14, 2020 09:05
[2020-09-14] MEDS: guaiFENesin (MUCINEX) 600 MG TAB PO SCH (09:40)
[2020-09-14] MEDS: TERAZOSIN 5 MG (HYTRIN) CAPSULE PO SCH (09:40)
[2020-09-14] MEDS: methylPREDNISolone 40 MG/ML (Solu-MEDROL) VIAL IV SCH ×2 (09:40→20:06)
[2020-09-14] MEDS: FINASTERIDE (PROSCAR) 5 MG TAB PO SCH (09:40)
[2020-09-14] MEDS: PANTOPRAZOLE 40 MG (PROTONIX) TAB PO SCH (09:40)
[2020-09-14] MEDS: GENTAMICIN 0.3% OPHTH SOLN 5 ML LEFT EAR SCH ×3 (09:40→21:25)
[2020-09-14] MEDS: RT--FLUTICASONE/SALMETEROL 113-14 (AIRDUO RespiCLICK) IH SCH ×2 (09:46→18:15)
--- NOTE | 2020-09-14 11:55 | Occupational Ther Daily Note ---
OT Current Status-Daily Note Subjective Pt. verbalizes that he has some "soreness" in right shoulder and right side with increased flexion. Does not want pain medication. Mental Status/Objective Patient Orientation: Person, Place, Time, Situation ADL-Treatment Therapy Code Descriptions/Definitions Functional [place] Measure: 0=Not Assessed/NA 4=Minimal Assistance 1=Total Assistance 5=Supervision or Setup 2=Maximal Assistance 6=Modified [place] 3=Moderate Assistance 7=Complete IndependenceSCALE: Activities may be completed with or without assistive devices. 8-Ybkkgdncnv-lbtyhpz completes the activity by him/herself with no assistance from a helper. 5-Set-up or Clean-up Assistance-helper sets up or cleans up; patient completes activity. [place] assists only prior to or following the activity. 4-Supervision or Touching Assistance-helper provides verbal cues and/or touching/steadying and/or contact guard assistance as patient completes activity. Assistance may be provided throughout the activity or intermittently. 3-Partial/Moderate Assistance-helper does LESS THAN HALF the effort. [place] lifts, holds or supports trunk or limbs, but provides less than half the effort. 2-Substantial/Maximal Assistance-helper does MORE THAN HALF the effort. [place] lifts or holds trunk or limbs and provides more than half the effort. 8-Idzeepgmj-qmqhjy does ALL the effort. Patient does none of the effort to complete the activity. Or, the assistance of 2 or more helpers is required for the patient to complete the activity. If activity was not attempted, code reason: 7-Patient Refused. 9-Not Applicable-not attempted and the patient did not perform the activity before the current illness, exacerbation or injury. 10-Not Attempted due to Environmental Limitations-(lack of equipment, weather restraints, etc.). 88-Not Attempted due to Medical Conditions or Safety Concerns. Toileting Hygiene (QC): 6 Toilet Transfer (QC): 6 Other Treatment Pt. up in therapy gym finishing with PT. Pt. declines showering, as he showering yesterday. Agrees to treatment. OT attempted to do tasks and activities that would not strain his right shoulder, or put into increased flexion. Pt. donned 1 lb. wrist weights and completed therapy pegs, as well as fine motor task of clipping therapy clothespins. Pt. does occasionally wince if he lifts right arm, but continues to indicate he is okay and does not want pain medication. OT placed peralta bags throughout hallway and pt. worked on dynamic standing balance with walker and director digital analytics. Pt. ambulated with walker and picked up all peralta bags with director digital analytics. He was able to let go of his walker and turn self to hand the peralta bag to therapist. No LOB noted. Pt. ambulated back to room and transferred to toilet with no difficulty. Pt. to pull call light. Family present. Education OT Patient Education: Correct positioning, Exercise program, Modified ADL techniques, Progress toward Goal/Update tx plan, Purpose of tx/functional activities, Reviewed precautions, Rehab process, Transfer techniques Teaching Recipient: Patient, Family Teaching Methods: Demonstration, Discussion Response to Teaching: Verbalize Understanding, Return Demonstration OT Short Term Goals Short Term Goals Time Frame: Sep 15, 2020 Shower/bathe self: 5 Lower body dressin Putting on/taking off footwear: 5 OT Correction Goals Correction Goals Time Frame: Sep 29, 2020 Eating (QC): 6 Oral Hygiene (QC): 6 Toileting Hygiene (QC): 6 Shower/Bathe Self (QC): 6 Upper Body Dressing (QC): 6 Lower Body Dressing (QC): 6 On/Off Footwear (QC): 6 Additional Goals: 1-Demonstrate ADL Tasks, 2-Verbalize Understanding, 3- ImproveStrength/Jose 1=Demonstrate adherence to instructed precautions during ADL tasks. 2=Patient will verbalize/demonstrate understanding of assistive devices/modifications for ADL. 3=Patient will improve strength/tolerance for activity to enable patient to perform ADL's. OT Education/Plan Problem List/Assessment Assessment: Decreased Activ Tolerance Discharge Recommendations Plan/Recommendations: Continue POC Equpiment Recommendations-D/C: Conservation Planner Treatment Plan/Plan of Care Treatment,Training & Education: Yes Patient would benefit from OT for education, treatment and training to promote independence in ADL's, mobility, safety and/or upper extremity function for ADL's. Plan of Care: ADL Retraining, Functional Mobility, Group Exercise/Act as Ind, UE Funct Exercise/Act Treatment Duration: Sep 29, 2020 Frequency: At least 5 of 7 days/Wk (IRF) Estimated Hrs Per Day: 1.5 hours per day Agreement: Yes Rehab Potential: Good Time/GCodes Start Time: 09:00 Stop Time: 10:00 Total Time Billed (hr/min): 60 Billed Treatment Time 1, FA x 4 CARLITA HOWELL OT Sep 14, 2020 11:55
--- NOTE | 2020-09-14 12:00 | PM&R Progress Note ---
Subjective HPI/CC On Admission Date Seen by Provider: Sep 14, 2020 Time Seen by Provider: 11:00 Subjective/Events-last exam 09/14/20: Much improved Productive sputum now Dr Hahn reports ear canal is completely occluded BM+ Skin tear improved 09/13/20: Pt dramatically improved IV Zosyn and Solumedrol have helped him Snored a lot last night No oxygen required Nebulizer treatments maintained Overall much improved 09/12/20: Pt doing a lot better IV steroids have caused the WC to become elevated at 22,000 and Zosyn was started due to history of pseudomonas Overall ambulating around pretty well 09/11/20: Drowsiness from conscious sedation from ear surgery Dr Hahn so will require less than part time flexible clerk from therapy today. Pt came back from ear procedure by Dr. Hahn Mucomyst nebulizer treatments BID scheduled Consulting Dr. Cook Antibiotics for ear infection coming to an end Labs reviewed 09/10/20: Patient doing well Coarse upper bronchial sounds No pain reported IS use has increased Mucomyst Nebs will be used Dr Hahn will take him to OR tomorrow brief sedation for ears 09/09/20: Patient doing better Less dyspnea and cough Dr Hahn saw him today and will take him to OR for a sedated surgery on Friday to remove debris causing hearing loss IS used Eye drops ordered CT scan subdural noted on CT 09/08/20: Patient settling in well Pain about the same of the right rib fracture BM ++ today after laxatives GERD treatment requested Dr Hahn consulted Cough is productive Abx maintained Prednisone maintained PCT and LA normal Lungs better with Nebs Review of Systems General: Fatigue, Malaise Pulmonary: Dyspnea, Cough Neurological: Weakness Focused Exam Lactate Level 09/12/20 06:15: Lactic Acid Level 1.29 09/13/20 06:24: Lactic Acid Level 1.60 Objective Exam Vital Signs Vital Signs Date Time Temp Pulse Resp B/P (MAP) Pulse Ox O2 Delivery O2 Flow Rate FiO2 09/14/20 20:00 Room Air 09/14/20 17:10 37.1 79 20 167/77 (107) 94 09/12/20 02:14 0.00 Capillary Refill : General Appearance: No Apparent Distress, WD/WN, Chronically ill HEENT: PERRL/EOMI, Pharynx Normal, Other Neck: Full Range of Motion, Normal Inspection, Non Tender, Supple, Carotid Bruit Respiratory: Chest Non Tender, No Accessory Muscle Use, No Respiratory Distress, Crackles, Decreased Breath Sounds, Wheezing Cardiovascular: Regular Rate, Rhythm, No Edema, No Gallop, No JVD, No Murmur, Normal Peripheral Pulses Gastrointestinal: Normal Bowel Sounds, No Organomegaly, No Pulsatile Mass, Non Tender, Soft Back: Normal Inspection, No CVA Tenderness, No Vertebral Tenderness Extremity: Normal Capillary Refill, Normal Inspection, Normal Range of Motion, Non Tender, No Calf Tenderness, No Pedal Edema Neurologic/Psychiatric: Alert, Oriented x3, No Motor/Sensory Deficits, Normal Mood/Affect Skin: Normal Color, Warm/Dry Lymphatic: No Adenopathy Results/Procedures Lab Patient resulted labs reviewed. FIM Transfers Therapy Code Descriptions/Definitions Functional [place] Measure: 0=Not Assessed/NA 4=Minimal Assistance 1=Total Assistance 5=Supervision or Setup 2=Maximal Assistance 6=Modified [place] 3=Moderate Assistance 7=Complete IndependenceSCALE: Activities may be completed with or without assistive devices. 5-Ozfiamxupk-tontywl completes the activity by him/herself with no assistance from a helper. 5-Set-up or Clean-up Assistance-helper sets up or cleans up; patient completes activity. [place] assists only prior to or following the activity. 4-Supervision or Touching Assistance-helper provides verbal cues and/or touching/steadying and/or contact guard assistance as patient completes activity. Assistance may be provided throughout the activity or intermittently. 3-Partial/Moderate Assistance-helper does LESS THAN HALF the effort. [place] lifts, holds or supports trunk or limbs, but provides less than half the effort. 2-Substantial/Maximal Assistance-helper does MORE THAN HALF the effort. [place] lifts or holds trunk or limbs and provides more than half the effort. 4-Nwttjkfqy-hsuqvk does ALL the effort. Patient does none of the effort to complete the activity. Or, the assistance of 2 or more helpers is required for the patient to complete the activity. If activity was not attempted, code reason: 7-Patient Refused. 9-Not Applicable-not attempted and the patient did not perform the activity before the current illness, exacerbation or injury. 10-Not Attempted due to Environmental Limitations-(lack of equipment, weather restraints, etc.). 88-Not Attempted due to Medical Conditions or Safety Concerns. Sit to Lying (QC): 4 Sit to Stand (QC): 6 Chair/Bnl-cp-Hbkdv Xfer(QC): 4 Car Transfer (QC): 4 Gait Training Does the Patient Walk?: Yes Distance: 150' x2 Walk 10 feet (QC): 6 Walk 50 ft with 2 Turns(QC): 5 Walk 150 ft (QC): 4 Walking 10ft/uneven surface-QC: 4 Gait Persons Needed: 1 Gait Assistive Device: FWW Wheelchair Training Does the Pt Use a Wheelchair?: No Wheel 50 ft with 2 turns (QC): 9 Wheel 150 ft (QC): 9 Stair Training Stair Training: Handrails/: 1 handrail #of Steps: 4 1 Step (curb) (QC): 4 4 Steps (QC): 4 12 Steps (QC): 88 Stairs: Pattern: Step to Balance Picking up an Object (QC): 88 ADL-Treatment Eating (QC): 6 Oral Hygiene (QC): 5 (Set up at sink to brush teeth.) Shower/Bathe Self (QC): 4 (SBA in shower.) Upper Body Dressing (QC): 5 Lower Body Dressing (QC): 5 On/Off Footwear (QC): 6 Toileting Hygiene (QC): 6 Toilet Transfer (QC): 6 Assessment/Plan Assessment and Plan Assess & Plan/Chief Complaint Assessment: Facial and head trauma from steer moving gate striking head Subdural hematoma Facial fractures Bilateral OM Severe EKLUTNA RA COPD Interstitial lung disease Plan: Nebs BM regimen IRF protocol Monitor closely 09/08/20: Abx Monitor pain BM regimen Monitor closely 09/09/20: Dr Hahn appreciated Friday procedure to help hearing loss Monitor lungs 09/10/20: Monitor BP Mucomyst nebs Monitor pain 09/11/20: Mucomyst nebs Dr Cook consultation IV steroids 09/12/20: Monitor closely Nebs Abx 09/13/20: Monitor closely IV steroids IV abx 09/14/20: Monitor lungs closely Check labs and CXR in am (1) Subdural hematoma (2) Rheumatoid arthritis (3) Rales (4) Interstitial lung disease (5) Emphysema of lung (6) Orbital wall fracture (7) BPH (benign prostatic hyperplasia) DIONNE SAMUEL DO Sep 14, 2020 11:59
--- NOTE | 2020-09-14 14:04 | Physical Therapy Daily Note ---
PT Daily Note-Current Subjective Pt agreed to PT. Pt reports knee is starting to hurt towards the end of Rx. Pt demonstrated that he was more SOB after amb. Pain Location: Left Location Body Site: Knee Comment: Pt states he has pain but does not rate Mental Status Patient Orientation: Person, Place, Time, Situation Attachments: Other-See Comments (mask while out of room) Transfers SCALE: Activities may be completed with or without assistive devices. 8-Gybxgapwzw-ptytwji completes the activity by him/herself with no assistance from a helper. 5-Set-up or Clean-up Assistance-helper sets up or cleans up; patient completes activity. [place] assists only prior to or following the activity. 4-Supervision or Touching Assistance-helper provides verbal cues and/or touching/steadying and/or contact guard assistance as patient completes activity. Assistance may be provided throughout the activity or intermittently. 3-Partial/Moderate Assistance-helper does LESS THAN HALF the effort. [place] lifts, holds or supports trunk or limbs, but provides less than half the effort. 2-Substantial/Maximal Assistance-helper does MORE THAN HALF the effort. [place] lifts or holds trunk or limbs and provides more than half the effort. 0-Gdngvohel-tvtdwy does ALL the effort. Patient does none of the effort to compl ete the activity. Or, the assistance of 2 or more helpers is required for the patient to complete the activity. If activity was not attempted, code reason: 7-Patient Refused. 9-Not Applicable-not attempted and the patient did not perform the activity before the current illness, exacerbation or injury. 10-Not Attempted due to Environmental Limitations-(lack of equipment, weather restraints, etc.). 88-Not Attempted due to Medical Conditions or Safety Concerns. Sit to Stand (QC): 5 Toilet Transfer (QC): 5 Weight Bearing Full Weight Bearing Full Weight Bearing Gait Training Does the Patient Walk?: Yes Distance: 300' x4 Walk 10 feet (QC): 6 Walk 50 ft with 2 Turns(QC): 6 Walk 150 ft (QC): 5 Gait Assistive Device: FWW Wheelchair Training Does the Pt Use a Wheelchair?: No Exercises Seated Therapy Exercises: Long arc quads Seated Reps: 12 Treatments Pt performed sit to stand, then amb 300' down the conrad. At end of conrad pt needed rest break. Performed walking, and retro walking while at [facility]. Amb to bathroom in room then back down conrad 300' performed LAQ then amb to therapy gym. PT departs Rx as OT arrives. Assessment Current Status: Good Progress Pt had pain in R knee after amb. Pt needed more frequent rest breaks in between sessions of amb and pt demonstrated that he was SOB. Pt required skilled verbal cues to help w/ retro walking at [place]. PT Short Term Goals Short Term Goals Time Frame: Sep 15, 2020 Roll Left & Right: 6 Sit to lyin Lying to sitting on side of be: 6 Sit to stand: 5 Chair/lgt-rt-rykml transfer: 5 Toilet transfer: 5 Walk 10 feet: 5 Walk 50 feet with two turns: 5 Walk 150 feet: 5 Walking 10ft on uneven surface: 5 1 step (curb): 5 4 steps: 5 Picking up objects: 4 PT Assisted Goals Drum Worker Goals PT Assisted Goals Time Frame: Oct 06, 2020 Roll Left & Right (QC): 6 Sit to Lying (QC): 6 Lying-Sitting on Side/Bed(QC): 6 Sit to Stand (QC): 6 Chair/Guj-wu-Jxqry Xfer(QC): 6 Toilet Transfer (QC): 6 Car Transfer (QC): 6 Does the Patient Walk: Yes Walk 10 feet (QC): 6 Walk 50ft with 2 Turns (QC): 6 Walk 150 ft (QC): 6 Walking 10ft on Uneven Surface: 6 1 Step (curb) (QC): 6 4 Steps (QC): 6 12 Steps (QC): 88 Picking up an Object (QC): 6 Does the Pt use WC or Scooter?: No Wheel 50 feet with 2 turns (QC: 9 Wheel 150 feet: 9 PT Plan Problem List Problem List: Activity Tolerance Treatment/Plan Treatment Plan: Continue Plan of Care Treatment Plan: Education, Functional Activity Jose, Functional Strength, Group Therapy, Gait, Safety, Therapeutic Exercise, Transfers Treatment Duration: Oct 06, 2020 Frequency: At least 5 of 7 days/Wk (IRF) Estimated Hrs Per Day: 1.5 hours per day Patient and/or Family Agrees t: Yes Safety Risks/Education Patient Education: Gait Training Teaching Recipient: Patient Teaching Methods: Demonstration, Discussion Response to Teaching: Verbalize Understanding Time/GCodes Time In: 1300 Time Out: 1330 Total Billed Treatment Time: 30 Total Billed Treatment 1, GT(20m), FA(10m) LISBET LEVINE COMPUTER GRAPHIC ARTIST Sep 14, 2020 14:04
--- NOTE | 2020-09-14 14:47 | Occupational Ther Daily Note ---
OT Current Status-Daily Note Subjective Pt. reports "soreness" in right knee and right shoulder. Declines wanting any pain medication. Mental Status/Objective Patient Orientation: Person, Place, Time, Situation ADL-Treatment Therapy Code Descriptions/Definitions Functional [place] Measure: 0=Not Assessed/NA 4=Minimal Assistance 1=Total Assistance 5=Supervision or Setup 2=Maximal Assistance 6=Modified [place] 3=Moderate Assistance 7=Complete IndependenceSCALE: Activities may be completed with or without assistive devices. 2-Fthnpntcpr-lfgbqfc completes the activity by him/herself with no assistance from a helper. 5-Set-up or Clean-up Assistance-helper sets up or cleans up; patient completes activity. [place] assists only prior to or following the activity. 4-Supervision or Touching Assistance-helper provides verbal cues and/or touching/steadying and/or contact guard assistance as patient completes activity. Assistance may be provided throughout the activity or intermittently. 3-Partial/Moderate Assistance-helper does LESS THAN HALF the effort. [place] lifts, holds or supports trunk or limbs, but provides less than half the effort. 2-Substantial/Maximal Assistance-helper does MORE THAN HALF the effort. [place] lifts or holds trunk or limbs and provides more than half the effort. 7-Jlnkktavv-keylqj does ALL the effort. Patient does none of the effort to complete the activity. Or, the assistance of 2 or more helpers is required for the patient to complete the activity. If activity was not attempted, code reason: 7-Patient Refused. 9-Not Applicable-not attempted and the patient did not perform the activity before the current illness, exacerbation or injury. 10-Not Attempted due to Environmental Limitations-(lack of equipment, weather restraints, etc.). 88-Not Attempted due to Medical Conditions or Safety Concerns. Other Treatment OT and pt. talked about anything that he may be concerned about. He reports that he has some knee soreness with ambulation and his ribs are still sore at times, but that he is coughing better. OT stresses importance of doing deep breathing exercises and opening lungs. Completed fine motor strengthening tasks for continued hand strength/movement, as pt. does still have bruising in left arm and small wound. Pt. completed theraputty task, as well as card activity. Pt. ambulates with walker with Mod I back to room. All needs met. Education OT Patient Education: Correct positioning, Exercise program, Progress toward Goal/Update tx plan, Purpose of tx/functional activities, Reviewed precautions, Rehab process, Transfer techniques Teaching Recipient: Patient Teaching Methods: Demonstration, Discussion Response to Teaching: Verbalize Understanding, Return Demonstration OT Short Term Goals Short Term Goals Time Frame: Sep 15, 2020 Shower/bathe self: 5 Lower body dressin Putting on/taking off footwear: 5 OT Long-Term Goals Long-Term Goals Time Frame: Sep 29, 2020 Eating (QC): 6 Oral Hygiene (QC): 6 Toileting Hygiene (QC): 6 Shower/Bathe Self (QC): 6 Upper Body Dressing (QC): 6 Lower Body Dressing (QC): 6 On/Off Footwear (QC): 6 Additional Goals: 1-Demonstrate ADL Tasks, 2-Verbalize Understanding, 3-Im proveStrength/Jsoe 1=Demonstrate adherence to instructed precautions during ADL tasks. 2=Patient will verbalize/demonstrate understanding of assistive devices/modifications for ADL. 3=Patient will improve strength/tolerance for activity to enable patient to perform ADL's. OT Education/Plan Problem List/Assessment Assessment: Decreased Activ Tolerance Discharge Recommendations Plan/Recommendations: Continue POC Treatment Plan/Plan of Care Treatment,Training & Education: Yes Patient would benefit from OT for education, treatment and training to promote independence in ADL's, mobility, safety and/or upper extremity function for ADL's. Plan of Care: ADL Retraining, Functional Mobility, Group Exercise/Act as Ind, UE Funct Exercise/Act Treatment Duration: Sep 29, 2020 Frequency: At least 5 of 7 days/Wk (IRF) Estimated Hrs Per Day: 1.5 hours per day Agreement: Yes Rehab Potential: Good Time/GCodes Start Time: 13:30 Stop Time: 14:00 Total Time Billed (hr/min): 30 Billed Treatment Time 1, FA x 2 CARLITA HOWELL OT Sep 14, 2020 14:47
[2020-09-14 17:10] VITALS: BP 167/77
[2020-09-15] MEDS: ACETAMINOPHEN 325 MG TABLET PO SCH ×6 (03:22→23:23)
[2020-09-15 05:57] VITALS: BP 176/84
--- NOTE | 2020-09-15 05:59 | Pulmonary Progress Note ---
Standard Progress Note Progress Notes Date Seen by Provider: Sep 15, 2020 Time Seen by Provider: 05:58 Assessment & Plan COPDAE with ILD -Duonebs - Solumedrol 40 IV Q 12 currently -Change to prednisone taper -Pt is on RA PNA -Zosyn -Monitor Facial/head trauma Subdural hematoma Focused Exam Lactate Level 09/12/20 06:15: Lactic Acid Level 1.29 09/13/20 06:24: Lactic Acid Level 1.60 FABY VORA DO Sep 15, 2020 05:59
[2020-09-15] MEDS: PIPERACILLIN/TAZOBACTAM (BULK) 4.5 GM in NS (IVPB) 100 ML IV SCH ×3 (06:07→18:35)
[2020-09-15] MEDS: SUCRALFATE 1 GM (CARAFATE) TAB PO SCH ×4 (06:08→21:49)
[2020-09-15 06:11] LABS: BASOPHILS # (AUTO) 0.1 10^3/uL (0.0-0.1); BASOPHILS % (AUTO) 0 % (0-10); EOSINOPHILS % (AUTO) 0 % (0-10); HEMATOCRIT 38 % (40-54); HEMOGLOBIN 12.6 g/dL (13.3-17.7); LYMPHOCYTES # (AUTO) 0.5 10^3/uL (1.0-4.0); LYMPHOCYTES % (AUTO) 3 % (12-44); MEAN CORPUSCULAR HEMOGLOBIN 30 pg (25-34); MEAN CORPUSCULAR HGB CONC 34 g/dL (32-36); MEAN CORPUSCULAR VOLUME 90 fL (80-99); MEAN PLATELET VOLUME 10.5 fL (9.0-12.2); MONOCYTES # (AUTO) 0.8 10^3/uL (0.0-1.0); MONOCYTES % (AUTO) 5 % (0-12); NEUTROPHILS # (AUTO) 15.2 10^3/uL (1.8-7.8); NEUTROPHILS % (AUTO) 89 % (42-75); PLATELET COUNT 143 10^3/uL (130-400)
[2020-09-15 06:28] LABS: ALBUMIN 3.2 GM/DL (3.2-4.5)
[2020-09-15 06:29] LABS: CHLORIDE 105 MMOL/L (98-107); POTASSIUM 4.2 MMOL/L (3.6-5.0); SODIUM 137 MMOL/L (135-145)
[2020-09-15 06:30] LABS: CALCIUM 8.5 MG/DL (8.5-10.1)
[2020-09-15 06:31] LABS: GLUCOSE 112 MG/DL (70-105); TOTAL PROTEIN 5.2 GM/DL (6.4-8.2)
[2020-09-15 06:32] LABS: CARBON DIOXIDE 21 MMOL/L (21-32)
[2020-09-15 06:33] LABS: BILIRUBIN,TOTAL 1.1 MG/DL (0.1-1.0)
[2020-09-15 06:34] LABS: ALKALINE PHOSPHATASE 93 U/L (40-136)
[2020-09-15 06:35] LABS: CREATININE SERUM 1.01 MG/DL (0.60-1.30); GFR ESTIMATED > 60
[2020-09-15 06:36] LABS: BUN/CREATININE RATIO 37
[2020-09-15 06:38] LABS: ALANINE AMINOTRANSFERASE 21 U/L (0-55)
[2020-09-15] MEDS: RT--FLUTICASONE/SALMETEROL 113-14 (AIRDUO RespiCLICK) IH SCH ×2 (07:54→19:07)
[2020-09-15] MEDS: RT-ALBUTEROL/IPRATROPIUM 3 ML (DUONEB) VIAL INH SCH ×2 (07:54→19:07)
[2020-09-15] MEDS: guaiFENesin (MUCINEX) 600 MG TAB PO SCH (09:04)
[2020-09-15] MEDS: GENTAMICIN 0.3% OPHTH SOLN 5 ML LEFT EAR SCH ×3 (09:04→21:50)
[2020-09-15] MEDS: TERAZOSIN 5 MG (HYTRIN) CAPSULE PO SCH (09:04)
[2020-09-15] MEDS: predniSONE 10 MG TAB PO SCH (09:04)
[2020-09-15] MEDS: PANTOPRAZOLE 40 MG (PROTONIX) TAB PO SCH (09:04)
[2020-09-15] MEDS: FINASTERIDE (PROSCAR) 5 MG TAB PO SCH (09:04)
--- NOTE | 2020-09-15 09:05 | Occupational Ther Daily Note ---
OT Current Status-Daily Note Subjective Pt AxO, upright, sitting in 's room. Pt agrees to tx. Use of white board for receptive communication. Pt states "not really" when asked pain level. Pt seen this afternoon [id number]. Pt denies pain, states slight soreness, agrees to tx. Mental Status/Objective Patient Orientation: Person, Place, Situation, Normal For Age Attachments: IV ADL-Treatment Therapy Code Descriptions/Definitions Functional [place] Measure: 0=Not Assessed/NA 4=Minimal Assistance 1=Total Assistance 5=Supervision or Setup 2=Maximal Assistance 6=Modified [place] 3=Moderate Assistance 7=Complete IndependenceSCALE: Activities may be completed with or without assistive devices. 8-Blmfqlsogo-enuuoiq completes the activity by him/herself with no assistance from a helper. 5-Set-up or Clean-up Assistance-helper sets up or cleans up; patient completes activity. [place] assists only prior to or following the activity. 4-Supervision or Touching Assistance-helper provides verbal cues and/or touching/steadying and/or contact guard assistance as patient completes activity. Assistance may be provided throughout the activity or intermittently. 3-Partial/Moderate Assistance-helper does LESS THAN HALF the effort. [place] lifts, holds or supports trunk or limbs, but provides less than half the effort. 2-Substantial/Maximal Assistance-helper does MORE THAN HALF the effort. [place] lifts or holds trunk or limbs and provides more than half the effort. 0-Bfkzapfeb-ezidsc does ALL the effort. Patient does none of the effort to complete the activity. Or, the assistance of 2 or more helpers is required for the patient to complete the activity. If activity was not attempted, code reason: 7-Patient Refused. 9-Not Applicable-not attempted and the patient did not perform the activity before the current illness, exacerbation or injury. 10-Not Attempted due to Environmental Limitations-(lack of equipment, weather restraints, etc.). 88-Not Attempted due to Medical Conditions or Safety Concerns. Eating (QC): 6 Oral Hygiene (QC): 4 (SUP at sink level) Shower/Bathe Self (QC): 5 (s.u dressing wounds/ IV for shower.) Upper Body Dressing (QC): 5 (s/u) Lower Body Dressing (QC): 4 (s/u, completes in shower without assist and SUP level.) On/Off Footwear: 6 (IND socks) Toileting Hygiene (QC): 6 (IND) Toilet Transfer (QC): 4 (SUP, use of walker.) Other Treatment Pt sit to stands with SBA at all times through session. Use of walker for ambulation with one instance of LOB during reaching task, able to self correct withSBA-CGA. Pt completes showering/ dressing/ oral care and toileting during session. Completes ambulation through conrad with SBA and use of walker. Denies needs, call light in reach, in own room end of session due to 's schedule. OT to return this pm. Ambulates with SBA to gym. Completes 10 min mod resistance arm bike. No rest breaks needed. Pt stands to complete standing balance/ reaching/ throwing task with SBA and no LOB. Pt then sits to complete throwing and reaction task. Slight delayed reactions with catching, though good abiility to reach down in sit to pick items off floor and stands with CGA to pick items from floor. Good safety. pt requires one cue for use of walker during session. Returns to 's room end of session with all needs met, call light in reach. and sister in law present. Education OT Patient Education: Correct positioning, Exercise program, Home exercise program, Progress toward Goal/Update tx plan, Purpose of tx/functional activi ties, Safety issues Teaching Recipient: Patient Teaching Methods: Demonstration, Discussion, Audiovisual Response to Teaching: Verbalize Understanding, Return Demonstration OT Short Term Goals Short Term Goals Time Frame: Sep 15, 2020 Shower/bathe self: 5 Lower body dressin Putting on/taking off footwear: 5 OT Carpet Technician Goals Snf Goals Time Frame: Sep 29, 2020 Eating (QC): 6 Oral Hygiene (QC): 6 Toileting Hygiene (QC): 6 Shower/Bathe Self (QC): 6 Upper Body Dressing (QC): 6 Lower Body Dressing (QC): 6 On/Off Footwear (QC): 6 Additional Goals: 1-Demonstrate ADL Tasks, 2-Verbalize Understanding, 3-ImproveStrength/Jose 1=Demonstrate adherence to instructed precautions during ADL tasks. 2=Patient will verbalize/demonstrate understanding of assistive devices/modifications for ADL. 3=Patient will improve strength/tolerance for activity to enable patient to perform ADL's. OT Education/Plan Problem List/Assessment Assessment: Decreased Activ Tolerance, Dependent Transfers, Impaired Funct Balance, Impaired I ADL's, Impaired Self-Care Skills Discharge Recommendations Plan/Recommendations: Continue POC Therapy Discharge Recommendati: Home & Family Treatment Plan/Plan of Care Treatment,Training & Education: Yes Patient would benefit from OT for education, treatment and training to promote independence in ADL's, mobility, safety and/or upper extremity function for ADL's. Plan of Care: ADL Retraining, Functional Mobility, Group Exercise/Act as Ind, UE Funct Exercise/Act Treatment Duration: Sep 29, 2020 Frequency: At least 5 of 7 days/Wk (IRF) Estimated Hrs Per Day: 1.5 hours per day Agreement: Yes Rehab Potential: Good Time/GCodes Start Time: 08:00 (1245) Stop Time: 09:00 (1315) Total Time Billed (hr/min): 90 Billed Treatment Time 1, ADL 3, EX (60) 1, EX 2 (30) Total: 90 GEORGE DOMINGUEZ OTR Sep 15, 2020 09:05
[2020-09-15] MEDS: polyethylene glycoL POWDER 17 GM (MIRALAX) PACK PO SCH ×2 (09:32→21:45)
[2020-09-15] MEDS: SENNA W/DOCUSATE (SENOKOT S) TABLET PO SCH ×2 (09:32→21:45)
--- NOTE | 2020-09-15 12:01 | Physical Therapy Daily Note ---
PT Daily Note-Current Subjective Pt asleep in bed upon arrival. Pt reports not sleeping well last night. Pt agrees to PT. Pain Location: No Pain Reported Mental Status Patient Orientation: Person, Place, Time, Situation Attachments: Other-See Comments (mask while out of room and uses dry erase board for communication) Transfers SCALE: Activities may be completed with or without assistive devices. 0-Fhnjshbnwj-vhebyrw completes the activity by him/herself with no assistance from a helper. 5-Set-up or Clean-up Assistance-helper sets up or cleans up; patient completes activity. [place] assists only prior to or following the activity. 4-Supervision or Touching Assistance-helper provides verbal cues and/or touching/steadying and/or contact guard assistance as patient completes activity. Assistance may be provided throughout the activity or intermittently. 3-Partial/Moderate Assistance-helper does LESS THAN HALF the effort. [place] lifts, holds or supports trunk or limbs, but provides less than half the effort. 2-Substantial/Maximal Assistance-helper does MORE THAN HALF the effort. [place] lifts or holds trunk or limbs and provides more than half the effort. 2-Kwfkcsqul-xfnhkz does ALL the effort. Patient does none of the effort to complete the activity. Or, the assistance of 2 or more helpers is required for the patient to complete the activity. If activity was not attempted, code reason: 7-Patient Refused. 9-Not Applicable-not attempted and the patient did not perform the activity before the current illness, exacerbation or injury. 10-Not Attempted due to Environmental Limitations-(lack of equipment, weather restraints, etc.). 88-Not Attempted due to Medical Conditions or Safety Concerns. Sit to Stand (QC): 5 Toilet Transfer (QC): 5 Weight Bearing Full Weight Bearing Full Weight Bearing Gait Training Does the Patient Walk?: Yes Distance: 150' Walk 10 feet (QC): 5 Walk 50 ft with 2 Turns(QC): 5 Walk 150 ft (QC): 5 Gait Assistive Device: FWW Wheelchair Training Does the Pt Use a Wheelchair?: No Exercises Seated Therapy Exercises: Ankle pumps, Sit to stand, Long arc quads, Hip flexion Standin way Ex=Flex, Abd, Ext, Marching, Side steps Standing Reps: 15 NuStep Minutes: 15 NuStep Workload: 4 Treatments Pt TF to standing and then amb to BR. Pt amb to therapy gym TF to Nustep. Amb to // bars performed standing exs. TF to chair performs seated exs. Amb back to room TF to recliner. Assessment Current Status: Good Progress Pt tolerated PT well and endurance continues to improve. Pt continues to progressively get stronger. All needs met and call light in hand and lunch in front of pt at end of Rx. PT Short Term Goals Short Term Goals Time Frame: Sep 15, 2020 Roll Left & Right: 6 Sit to lyin Lying to sitting on side of be: 6 Sit to stand: 5 Chair/skq-uu-acclz transfer: 5 Toilet transfer: 5 Walk 10 feet: 5 Walk 50 feet with two turns: 5 Walk 150 feet: 5 Walking 10ft on uneven surface: 5 1 step (curb): 5 4 steps: 5 Picking up objects: 4 PT Group Home Goals Production Support Developer Goals PT Group Home Goals Time Frame: Oct 06, 2020 Roll Left & Right (QC): 6 Sit to Lying (QC): 6 Lying-Sitting on Side/Bed(QC): 6 Sit to Stand (QC): 6 Chair/Urr-gp-Jembs Xfer(QC): 6 Toilet Transfer (QC): 6 Car Transfer (QC): 6 Does the Patient Walk: Yes Walk 10 feet (QC): 6 Walk 50ft with 2 Turns (QC): 6 Walk 150 ft (QC): 6 Walking 10ft on Uneven Surface: 6 1 Step (curb) (QC): 6 4 Steps (QC): 6 12 Steps (QC): 88 Picking up an Object (QC): 6 Does the Pt use WC or Scooter?: No Wheel 50 feet with 2 turns (QC: 9 Wheel 150 feet: 9 PT Plan Treatment/Plan Treatment Plan: Continue Plan of Care Treatment Plan: Education, Functional Activity Jose, Functional Strength, Group Therapy, Gait, Safety, Therapeutic Exercise, Transfers Treatment Duration: Oct 06, 2020 Frequency: At least 5 of 7 days/Wk (IRF) Estimated Hrs Per Day: 1.5 hours per day Patient and/or Family Agrees t: Yes Safety Risks/Education Patient Education: Correct Positioning Teaching Methods: Demonstration, Discussion Response to Teaching: Verbalize Understanding, Return Demonstration Time/GCodes Time In: 1100 Time Out: 1200 Total Billed Treatment Time: 60 Total Billed Treatment 1, GT, EX x2, FA LISBET LEVINE HEAT SEAL OPERATOR Sep 15, 2020 12:01
--- NOTE | 2020-09-15 12:23 | PM&R Progress Note ---
Subjective HPI/CC On Admission Date Seen by Provider: Sep 15, 2020 Time Seen by Provider: 12:15 Subjective/Events-last exam 09/15/20: Patient doing well Prednisone initiated and Solumedrol DC Monitored closely 09/14/20: Much improved Productive sputum now Dr Hahn reports ear canal is completely occluded BM+ Skin tear improved 09/13/20: Pt dramatically improved IV Zosyn and Solumedrol have helped him Snored a lot last night No oxygen required Nebulizer treatments maintained Overall much improved 09/12/20: Pt doing a lot better IV steroids have caused the WC to become elevated at 22,000 and Zosyn was started due to history of pseudomonas Overall ambulating around pretty well 09/11/20: Drowsiness from conscious sedation from ear surgery Dr Hahn so will require less than time study engineer from therapy today. Pt came back from ear procedure by Dr. Hahn Mucomyst nebulizer treatments BID scheduled Consulting Dr. Cook Antibiotics for ear infection coming to an end Labs reviewed 09/10/20: Patient doing well Coarse upper bronchial sounds No pain reported IS use has increased Mucomyst Nebs will be used Dr Hahn will take him to OR tomorrow brief sedation for ears 09/09/20: Patient doing better Less dyspnea and cough Dr Hahn saw him today and will take him to OR for a sedated surgery on Friday to remove debris causing hearing loss IS used Eye drops ordered CT scan subdural noted on CT 09/08/20: Patient settling in well Pain about the same of the right rib fracture BM ++ today after laxatives GERD treatment requested Dr Hahn consulted Cough is productive Abx maintained Prednisone maintained PCT and LA normal Lungs better with Nebs Review of Systems General: Fatigue, Malaise Focused Exam Lactate Level 09/13/20 06:24: Lactic Acid Level 1.60 Objective Exam Vital Signs Vital Signs Date Time Temp Pulse Resp B/P (MAP) Pulse Ox O2 Delivery O2 Flow Rate FiO2 09/15/20 20:10 93 Room Air 09/15/20 17:03 36.5 82 18 157/74 (101) 09/12/20 02:14 0.00 Capillary Refill : General Appearance: No Apparent Distress, WD/WN, Chronically ill HEENT: PERRL/EOMI, Pharynx Normal, Other Neck: Full Range of Motion, Normal Inspection, Non Tender, Supple, Carotid Bruit Respiratory: Chest Non Tender, No Accessory Muscle Use, No Respiratory Distre ss, Crackles, Decreased Breath Sounds, Wheezing Cardiovascular: Regular Rate, Rhythm, No Edema, No Gallop, No JVD, No Murmur, Normal Peripheral Pulses Gastrointestinal: Normal Bowel Sounds, No Organomegaly, No Pulsatile Mass, Non Tender, Soft Back: Normal Inspection, No CVA Tenderness, No Vertebral Tenderness Extremity: Normal Capillary Refill, Normal Inspection, Normal Range of Motion, Non Tender, No Calf Tenderness, No Pedal Edema Neurologic/Psychiatric: Alert, Oriented x3, No Motor/Sensory Deficits, Normal Mood/Affect Skin: Normal Color, Warm/Dry Lymphatic: No Adenopathy Results/Procedures Lab Patient resulted labs reviewed. FIM Transfers Therapy Code Descriptions/Definitions Functional [place] Measure: 0=Not Assessed/NA 4=Minimal Assistance 1=Total Assistance 5=Supervision or Setup 2=Maximal Assistance 6=Modified [place] 3=Moderate Assistance 7=Complete IndependenceSCALE: Activities may be completed with or without assistive devices. 8-Lmwmserjrz-aigwukf completes the activity by him/herself with no assistance from a helper. 5-Set-up or Clean-up Assistance-helper sets up or cleans up; patient completes activity. [place] assists only prior to or following the activity. 4-Supervision or Touching Assistance-helper provides verbal cues and/or touching/steadying and/or contact guard assistance as patient completes a ctivity. Assistance may be provided throughout the activity or intermittently. 3-Partial/Moderate Assistance-helper does LESS THAN HALF the effort. [place] lifts, holds or supports trunk or limbs, but provides less than half the effort. 2-Substantial/Maximal Assistance-helper does MORE THAN HALF the effort. [place] lifts or holds trunk or limbs and provides more than half the effort. 2-Uaznxmpnl-teqxli does ALL the effort. Patient does none of the effort to complete the activity. Or, the assistance of 2 or more helpers is required for the patient to complete the activity. If activity was not attempted, code reason: 7-Patient Refused. 9-Not Applicable-not attempted and the patient did not perform the activity before the current illness, exacerbation or injury. 10-Not Attempted due to Environmental Limitations-(lack of equipment, weather restraints, etc.). 88-Not Attempted due to Medical Conditions or Safety Concerns. Sit to Lying (QC): 4 Sit to Stand (QC): 5 Chair/Joy-dr-Fjvam Xfer(QC): 4 Car Transfer (QC): 4 Gait Training Does the Patient Walk?: Yes Distance: 150' Walk 10 feet (QC): 5 Walk 50 ft with 2 Turns(QC): 5 Walk 150 ft (QC): 5 Walking 10ft/uneven surface-QC: 4 Gait Persons Needed: 1 Gait Assistive Device: FWW Wheelchair Training Does the Pt Use a Wheelchair?: No Wheel 50 ft with 2 turns (QC): 9 Wheel 150 ft (QC): 9 Stair Training Stair Training: Handrails/: 1 handrail #of Steps: 4 1 Step (curb) (QC): 4 4 Steps (QC): 4 12 Steps (QC): 88 Stairs: Pattern: Step to Balance Picking up an Object (QC): 88 ADL-Treatment Eating (QC): 6 Oral Hygiene (QC): 4 (SUP at sink level) Shower/Bathe Self (QC): 5 (s.u dressing wounds/ IV for shower.) Upper Body Dressing (QC): 5 (s/u) Lower Body Dressing (QC): 4 (s/u, completes in shower without assist and SUP level.) On/Off Footwear (QC): 6 (IND socks) Toileting Hygiene (QC): 6 (IND) Toilet Transfer (QC): 4 (SUP, use of walker.) Assessment/Plan Assessment and Plan Assess & Plan/Chief Complaint Assessment: Facial and head trauma from steer moving gate striking head Subdural hematoma Facial fractures Bilateral OM Severe [place] RA COPD Interstitial lung disease Plan: Nebs BM regimen IRF protocol Monitor closely 09/08/20: Abx Monitor pain BM regimen Monitor closely 09/09/20: Dr Hahn appreciated Friday procedure to help hearing loss Monitor lungs 09/10/20: Monitor BP Mucomyst nebs Monitor pain 09/11/20: Mucomyst nebs Dr Cook consultation IV steroids 09/12/20: Monitor closely Nebs Abx 09/13/20: Monitor closely IV steroids IV abx 09/14/20: Monitor lungs closely Check labs and CXR in am 09/15/20: Monitor lungs Improved status (1) Subdural hematoma (2) Rheumatoid arthritis (3) Rales (4) Interstitial lung disease (5) Emphysema of lung (6) Orbital wall fracture (7) BPH (benign prostatic hyperplasia) DIONNE SAMUEL DO Sep 15, 2020 12:23
--- NOTE | 2020-09-15 15:03 | Physical Therapy Daily Note ---
PT Daily Note-Current Subjective Pt in recliner upon arrival. Pt agrees to PT. Pt demonstrates he is SOB. C/O of HS tightness while performing LAQ. States that his shoulder is more sore today than previously. Pain Location: Right Location Body Site: Shoulder Comment: Pt reports pain but does not rate Mental Status Patient Orientation: Person, Place, Time, Situation Attachments: Other-See Comments (mask while outside of room and uses dry erase board for communication) Transfers SCALE: Activities may be completed with or without assistive devices. 7-Qigxienyee-pgphrae completes the activity by him/herself with no assistance from a helper. 5-Set-up or Clean-up Assistance-helper sets up or cleans up; patient completes activity. [place] assists only prior to or following the activity. 4-Supervision or Touching Assistance-helper provides verbal cues and/or touching/steadying and/or contact guard assistance as patient completes activity. Assistance may be provided throughout the activity or intermittently. 3-Partial/Moderate Assistance-helper does LESS THAN HALF the effort. [place] lifts, holds or supports trunk or limbs, but provides less than half the effort. 2-Substantial/Maximal Assistance-helper does MORE THAN HALF the effort. [place] lifts or holds trunk or limbs and provides more than half the effort. 1-Jrnlaypyn-ybosbs does ALL the effort. Patient does none of the effort to complete the activity. Or, the assistance of 2 or more helpers is required for the patient to complete the activity. If activity was not attempted, code reason: 7-Patient Refused. 9-Not Applicable-not attempted and the patient did not perform the activity before the current illness, exacerbation or injury. 10-Not Attempted due to Environmental Limitations-(lack of equipment, weather restraints, etc.). 88-Not Attempted due to Medical Conditions or Safety Concerns. Sit to Stand (QC): 5 Toilet Transfer (QC): 5 Weight Bearing Full Weight Bearing Full Weight Bearing Gait Training Does the Patient Walk?: Yes Distance: 350' Walk 10 feet (QC): 6 Walk 50 ft with 2 Turns(QC): 6 Walk 150 ft (QC): 5 Gait Assistive Device: FWW Wheelchair Training Does the Pt Use a Wheelchair?: No Exercises Seated Therapy Exercises: Sit to stand, Long arc quads Seated Reps: 15 Standing: Retro gait, Side steps Treatments TF from recliner to BR. Amb to end of hallway. Performs seated reps after rest break. Amb to windowsill performs standing exs. Then amb back to room. TF to recliner. Assessment Current Status: Good Progress Pt demonstrated that he was SOB so longer rest breaks were provided. Pt c/o HS while performing LAQ so therapist provided HS stretch 30 seconds per side x3. Pt in recliner all needs met and call light left in hand. PT Short Term Goals Short Term Goals Time Frame: Sep 15, 2020 Roll Left & Right: 6 Sit to lyin Lying to sitting on side of be: 6 Sit to stand: 5 Chair/oyw-ye-nuopo transfer: 5 Toilet transfer: 5 Walk 10 feet: 5 Walk 50 feet with two turns: 5 Walk 150 feet: 5 Walking 10ft on uneven surface: 5 1 step (curb): 5 4 steps: 5 Picking up objects: 4 PT Pilot Plant Operator Goals Senior Care Goals PT Pilot Plant Operator Goals Time Frame: Oct 06, 2020 Roll Left & Right (QC): 6 Sit to Lying (QC): 6 Lying-Sitting on Side/Bed(QC): 6 Sit to Stand (QC): 6 Chair/Ngw-rp-Fylkh Xfer(QC): 6 Toilet Transfer (QC): 6 Car Transfer (QC): 6 Does the Patient Walk: Yes Walk 10 feet (QC): 6 Walk 50ft with 2 Turns (QC): 6 Walk 150 ft (QC): 6 Walking 10ft on Uneven Surface: 6 1 Step (curb) (QC): 6 4 Steps (QC): 6 12 Steps (QC): 88 Picking up an Object (QC): 6 Does the Pt use WC or Scooter?: No Wheel 50 feet with 2 turns (QC: 9 Wheel 150 feet: 9 PT Plan Treatment/Plan Treatment Plan: Continue Plan of Care Treatment Plan: Education, Functional Activity Jose, Functional Strength, [place] up Therapy, Gait, Safety, Therapeutic Exercise, Transfers Treatment Duration: Oct 06, 2020 Frequency: At least 5 of 7 days/Wk (IRF) Estimated Hrs Per Day: 1.5 hours per day Patient and/or Family Agrees t: Yes Safety Risks/Education Patient Education: Correct Positioning Teaching Recipient: Patient Teaching Methods: Demonstration, Discussion Response to Teaching: Verbalize Understanding Time/GCodes Time In: 1425 Time Out: 1500 Total Billed Treatment Time: 35 Total Billed Treatment 1, GT, LISBET MIR TELEPHONE CLAIMS REPRESENTATIVE Sep 15, 2020 15:03
[2020-09-15 17:03] VITALS: BP 157/74
[2020-09-16] MEDS: ACETAMINOPHEN 325 MG TABLET PO SCH ×3 (02:16→12:13)
[2020-09-16] MEDS: PIPERACILLIN/TAZOBACTAM (BULK) 4.5 GM in NS (IVPB) 100 ML IV SCH ×3 (02:16→18:00)
[2020-09-16 06:30] VITALS: BP 175/83
[2020-09-16] MEDS: SUCRALFATE 1 GM (CARAFATE) TAB PO SCH ×4 (06:32→21:41)
[2020-09-16 09:49] VITALS: BP 148/67
[2020-09-16] MEDS: TERAZOSIN 5 MG (HYTRIN) CAPSULE PO SCH (09:54)
[2020-09-16] MEDS: FINASTERIDE (PROSCAR) 5 MG TAB PO SCH (09:54)
[2020-09-16] MEDS: guaiFENesin (MUCINEX) 600 MG TAB PO SCH (09:55)
[2020-09-16] MEDS: predniSONE 10 MG TAB PO SCH (09:55)
[2020-09-16] MEDS: polyethylene glycoL POWDER 17 GM (MIRALAX) PACK PO SCH ×2 (09:55→21:36)
[2020-09-16] MEDS: PANTOPRAZOLE 40 MG (PROTONIX) TAB PO SCH (09:55)
[2020-09-16] MEDS: SENNA W/DOCUSATE (SENOKOT S) TABLET PO SCH ×2 (09:56→21:36)
[2020-09-16] MEDS: GENTAMICIN 0.3% OPHTH SOLN 5 ML LEFT EAR SCH ×3 (09:58→21:41)
[2020-09-16] MEDS: RT-ALBUTEROL/IPRATROPIUM 3 ML (DUONEB) VIAL INH SCH ×2 (10:25→18:21)
[2020-09-16] MEDS: RT--FLUTICASONE/SALMETEROL 113-14 (AIRDUO RespiCLICK) IH SCH ×2 (10:25→18:21)
--- NOTE | 2020-09-16 10:39 | Physical Therapy Daily Note ---
PT Daily Note-Current Subjective Pt asleep in recliner upon arrival. Pt agrees to PT. Pain Numeric Pain Scale: 3 Location: Left Location Body Site: Knee Pain Description: Ache Mental Status Patient Orientation: Person, Place, Time, Situation Attachments: Other-See Comments (Dry erase board as pt is [place]) Transfers SCALE: Activities may be completed with or without assistive devices. 1-Yhfhistetd-gfncbpf completes the activity by him/herself with no assistance from a helper. 5-Set-up or Clean-up Assistance-helper sets up or cleans up; patient completes activity. [place] assists only prior to or following the activity. 4-Supervision or Touching Assistance-helper provides verbal cues and/or touching/steadying and/or contact guard assistance as patient completes acti vity. Assistance may be provided throughout the activity or intermittently. 3-Partial/Moderate Assistance-helper does LESS THAN HALF the effort. [place] lifts, holds or supports trunk or limbs, but provides less than half the effort. 2-Substantial/Maximal Assistance-helper does MORE THAN HALF the effort. [place] lifts or holds trunk or limbs and provides more than half the effort. 6-Gmmqtsprj-khhwkn does ALL the effort. Patient does none of the effort to complete the activity. Or, the assistance of 2 or more helpers is required for the patient to complete the activity. If activity was not attempted, code reason: 7-Patient Refused. 9-Not Applicable-not attempted and the patient did not perform the activity before the current illness, exacerbation or injury. 10-Not Attempted due to Environmental Limitations-(lack of equipment, weather restraints, etc.). 88-Not Attempted due to Medical Conditions or Safety Concerns. Sit to Stand (QC): 5 Toilet Transfer (QC): 5 Weight Bearing Full Weight Bearing Full Weight Bearing Gait Training Does the Patient Walk?: Yes Distance: 500' Walk 10 feet (QC): 5 Walk 50 ft with 2 Turns(QC): 5 Walk 150 ft (QC): 5 Gait Persons Needed: 1 Gait Assistive Device: FWW Pt takes RB as needed. Wheelchair Training Does the Pt Use a Wheelchair?: No Treatments Pt TF to standing, uses BR and amb. in hallway. Pt returns to room at end of tx to rest in recliner. All needs met, call light in hand. Assessment Current Status: Good Progress Pt reports discomfort in L knee and rest break given then pain subsides. PT Short Term Goals Short Term Goals Time Frame: Sep 15, 2020 Roll Left & Right: 6 Sit to lyin Lying to sitting on side of be: 6 Sit to stand: 5 Chair/ygo-wl-zpxgw transfer: 5 Toilet transfer: 5 Walk 10 feet: 5 Walk 50 feet with two turns: 5 Walk 150 feet: 5 Walking 10ft on uneven surface: 5 1 step (curb): 5 4 steps: 5 Picking up objects: 4 PT Traveling Buyer Goals Traveling Buyer Goals PT Traveling Buyer Goals Time Frame: Oct 06, 2020 Roll Left & Right (QC): 6 Sit to Lying (QC): 6 Lying-Sitting on Side/Bed(QC): 6 Sit to Stand (QC): 6 Chair/Zsj-vg-Xhucm Xfer(QC): 6 Toilet Transfer (QC): 6 Car Transfer (QC): 6 Does the Patient Walk: Yes Walk 10 feet (QC): 6 Walk 50ft with 2 Turns (QC): 6 Walk 150 ft (QC): 6 Walking 10ft on Uneven Surface: 6 1 Step (curb) (QC): 6 4 Steps (QC): 6 12 Steps (QC): 88 Picking up an Object (QC): 6 Does the Pt use WC or Scooter?: No Wheel 50 feet with 2 turns (QC: 9 Wheel 150 feet: 9 PT Plan Treatment/Plan Treatment Plan: Continue Plan of Care Treatment Plan: Education, Functional Activity Jose, Functional Strength, Group Therapy, Gait, Safety, Therapeutic Exercise, Transfers Treatment Duration: Oct 06, 2020 Frequency: At least 5 of 7 days/Wk (IRF) Estimated Hrs Per Day: 1.5 hours per day Patient and/or Family Agrees t: Yes Time/GCodes Time In: 915 Time Out: 945 Total Billed Treatment Time: 30 Total Billed Treatment 1,GT (20m) & FA (10m) LISBET LEVINE FARMWORKER GRAIN Sep 16, 2020 10:39
--- NOTE | 2020-09-16 13:34 | PM&R Progress Note ---
Subjective HPI/CC On Admission Date Seen by Provider: Sep 16, 2020 Time Seen by Provider: 12:40 Subjective/Events-last exam 09/16/20: Patient doing well Hearing a little bit now BP stable Lungs are improved Changing APAP to prn 09/15/20: Patient doing well Prednisone initiated and Solumedrol DC Monitored closely 09/14/20: Much improved Productive sputum now Dr Hahn reports ear canal is completely occluded BM+ Skin tear improved 09/13/20: Pt dramatically improved IV Zosyn and Solumedrol have helped him Snored a lot last night No oxygen required Nebulizer treatments maintained Overall much improved 09/12/20: Pt doing a lot better IV steroids have caused the WC to become elevated at 22,000 and Zosyn was started due to history of pseudomonas Overall ambulating around pretty well 09/11/20: Drowsiness from conscious sedation from ear surgery Dr Hahn so will require less than time buyer from therapy today. Pt came back from ear procedure by Dr. Hahn Mucomyst nebulizer treatments BID scheduled Consulting Dr. Cook Antibiotics for ear infection coming to an end Labs reviewed 09/10/20: Patient doing well Coarse upper bronchial sounds No pain reported IS use has increased Mucomyst Nebs will be used Dr Hahn will take him to OR tomorrow brief sedation for ears 09/09/20: Patient doing better Less dyspnea and cough Dr Hahn saw him today and will take him to OR for a sedated surgery on Friday to remove debris causing hearing loss IS used Eye drops ordered CT scan subdural noted on CT 09/08/20: Patient settling in well Pain about the same of the right rib fracture BM ++ today after laxatives GERD treatment requested Dr Hahn consulted Cough is productive Abx maintained Prednisone maintained PCT and LA normal Lungs better with Nebs Review of Systems General: Fatigue Pulmonary: Cough Objective Exam Vital Signs Vital Signs Date Time Temp Pulse Resp B/P (MAP) Pulse Ox O2 Delivery O2 Flow Rate FiO2 09/16/20 10:31 Room Air 09/16/20 10:25 93 09/16/20 09:49 76 20 148/67 (94) 09/16/20 06:30 36.8 09/12/20 02:14 0.00 Capillary Refill : General Appearance: No Apparent Distress, WD/WN, Chronically ill HEENT: PERRL/EOMI, Pharynx Normal, Other Neck: Full Range of Motion, Normal Inspection, Non Tender, Supple, Carotid Bruit Respiratory: Chest Non Tender, No Accessory Muscle Use, No Respiratory Distress, Crackles, Decreased Breath Sounds, Wheezing Cardiovascular: Regular Rate, Rhythm, No Edema, No Gallop, No JVD, No Murmur, Normal Peripheral Pulses Gastrointestinal: Normal Bowel Sounds, No Organomegaly, No Pulsatile Mass, Non Tender, Soft Back: Normal Inspection, No CVA Tenderness, No Vertebral Tenderness Extremity: Normal Capillary Refill, Normal Inspection, Normal Range of Motion, Non Tender, No Calf Tenderness, No Pedal Edema Neurologic/Psychiatric: Alert, Oriented x3, No Motor/Sensory Deficits, Normal Mood/Affect Skin: Normal Color, Warm/Dry Lymphatic: No Adenopathy Results/Procedures Lab Patient resulted labs reviewed. FIM Transfers Therapy Code Descriptions/Definitions Functional [place] Measure: 0=Not Assessed/NA 4=Minimal Assistance 1=Total Assistance 5=Supervision or Setup 2=Maximal Assistance 6=Modified [place] 3=Moderate Assistance 7=Complete IndependenceSCALE: Activities may be completed with or without assistive devices. 8-Zfhqadlfye-rezmxbs completes the activity by him/herself with no assistance from a helper. 5-Set-up or Clean-up Assistance-helper sets up or cleans up; patient completes activity. [place] assists only prior to or following the activity. 4-Supervision or Touching Assistance-helper provides verbal cues and/or touching/steadying and/or contact guard assistance as patient completes activity. Assistance may be provided throughout the activity or intermittently. 3-Partial/Moderate Assistance-helper does LESS THAN HALF the effort. [place] lifts, holds or supports trunk or limbs, but provides less than half the effort. 2-Substantial/Maximal Assistance-helper does MORE THAN HALF the effort. [place] lifts or holds trunk or limbs and provides more than half the effort. 3-Ahtkyupbe-onhpxs does ALL the effort. Patient does none of the effort to complete the activity. Or, the assistance of 2 or more helpers is required for the patient to complete the activity. If activity was not attempted, code reason: 7-Patient Refused. 9-Not Applicable-not attempted and the patient did not perform the activity before the current illness, exacerbation or injury. 10-Not Attempted due to Environmental Limitations-(lack of equipment, weather restraints, etc.). 88-Not Attempted due to Medical Conditions or Safety Concerns. Sit to Lying (QC): 4 Sit to Stand (QC): 5 Chair/Oon-pn-Lhtcw Xfer(QC): 4 Car Transfer (QC): 4 Gait Training Does the Patient Walk?: Yes Distance: 500' Walk 10 feet (QC): 5 Walk 50 ft with 2 Turns(QC): 5 Walk 150 ft (QC): 5 Walking 10ft/uneven surface-QC: 4 Gait Persons Needed: 1 Gait Assistive Device: FWW Wheelchair Training Does the Pt Use a Wheelchair?: No Wheel 50 ft with 2 turns (QC): 9 Wheel 150 ft (QC): 9 Stair Training Stair Training: Handrails/: 1 handrail #of Steps: 4 1 Step (curb) (QC): 4 4 Steps (QC): 4 12 Steps (QC): 88 Stairs: Pattern: Step to Balance Picking up an Object (QC): 88 ADL-Treatment Eating (QC): 6 Oral Hygiene (QC): 4 (SUP at sink level) Shower/Bathe Self (QC): 5 (s.u dressing wounds/ IV for shower.) Upper Body Dressing (QC): 5 (s/u) Lower Body Dressing (QC): 4 (s/u, completes in shower without assist and SUP level.) On/Off Footwear (QC): 6 (IND socks) Toileting Hygiene (QC): 6 (IND) Toilet Transfer (QC): 4 (SUP, use of walker.) Assessment/Plan Assessment and Plan Assess & Plan/Chief Complaint Assessment: Facial and head trauma from steer moving gate striking head Subdural hematoma Facial fractures Bilateral OM Severe [place] RA COPD Interstitial lung disease Plan: Nebs BM regimen IRF protocol Monitor closely 09/08/20: Abx Monitor pain BM regimen Monitor closely 09/09/20: Dr Hahn appreciated Friday procedure to help hearing loss Monitor lungs 09/10/20: Monitor BP Mucomyst nebs Monitor pain 09/11/20: Mucomyst nebs Dr Cook consultation IV steroids 09/12/20: Monitor closely Nebs Abx 09/13/20: Monitor closely IV steroids IV abx 09/14/20: Monitor lungs closely Check labs and CXR in am 09/15/20: Monitor lungs Improved status 09/16/20: IS Nebs Monitor BP (1) Subdural hematoma (2) Rheumatoid arthritis (3) Rales (4) Interstitial lung disease (5) Emphysema of lung (6) Orbital wall fracture (7) BPH (benign prostatic hyperplasia) DIONNE SAMUEL DO Sep 16, 2020 13:34
[2020-09-16 17:50] VITALS: BP 154/70
[2020-09-17] MEDS: PIPERACILLIN/TAZOBACTAM (BULK) 4.5 GM in NS (IVPB) 100 ML IV SCH (02:07)
[2020-09-17] MEDS: ACETAMINOPHEN 325 MG TABLET PO PRN (02:07)
[2020-09-17] MEDS: MELATONIN 3 MG TABLET PO PRN (02:07)
[2020-09-17 06:20] VITALS: BP 144/69
[2020-09-17] MEDS: SUCRALFATE 1 GM (CARAFATE) TAB PO SCH ×4 (06:24→21:49)
--- NOTE | 2020-09-17 07:06 | PM&R Progress Note ---
Subjective HPI/CC On Admission Date Seen by Provider: Sep 17, 2020 Time Seen by Provider: 12:30 Subjective/Events-last exam 09/17/20: Patient doing well Trying to navigate his closed caption phone Voltaren gel on his knees Robitussin AC given Breathe Right strips recommended Completed Zosyn 09/16/20: Patient doing well Hearing a little bit now BP stable Lungs are improved Changing APAP to prn 09/15/20: Patient doing well Prednisone initiated and Solumedrol DC Monitored closely 09/14/20: Much improved Productive sputum now Dr Hahn reports ear canal is completely occluded BM+ Skin tear improved 09/13/20: Pt dramatically improved IV Zosyn and Solumedrol have helped him Snored a lot last night No oxygen required Nebulizer treatments maintained Overall much improved 09/12/20: Pt doing a lot better IV steroids have caused the WC to become elevated at 22,000 and Zosyn was started due to history of pseudomonas Overall ambulating around pretty well 09/11/20: Drowsiness from conscious sedation from ear surgery Dr Hahn so will require less than time clerk from therapy today. Pt came back from ear procedure by Dr. Hahn Mucomyst nebulizer treatments BID scheduled Consulting Dr. Cook Antibiotics for ear infection coming to an end Labs reviewed 09/10/20: Patient doing well Coarse upper bronchial sounds No pain reported IS use has increased Mucomyst Nebs will be used Dr Hahn will take him to OR tomorrow brief sedation for ears 09/09/20: Patient doing better Less dyspnea and cough Dr Hahn saw him today and will take him to OR for a sedated surgery on Friday to remove debris causing hearing loss IS used Eye drops ordered CT scan subdural noted on CT 09/08/20: Patient settling in well Pain about the same of the right rib fracture BM ++ today after laxatives GERD treatment requested Dr Hahn consulted Cough is productive Abx maintained Prednisone maintained PCT and LA normal Lungs better with Nebs Review of Systems General: Fatigue Pulmonary: Dyspnea, Cough Objective Exam Vital Signs Vital Signs Date Time Temp Pulse Resp B/P (MAP) Pulse Ox O2 Delivery O2 Flow Rate FiO2 09/17/20 17:04 36.6 78 18 146/66 (92) 93 Room Air 09/12/20 02:14 0.00 Capillary Refill : General Appearance: No Apparent Distress, WD/WN, Chronically ill HEENT: PERRL/EOMI, Pharynx Normal, Other Neck: Full Range of Motion, Normal Inspection, Non Tender, Supple, Carotid Bruit Respiratory: Chest Non Tender, No Accessory Muscle Use, No Respiratory Distress, Crackles, Decreased Breath Sounds, Wheezing Cardiovascular: Regular Rate, Rhythm, No Edema, No Gallop, No JVD, No Murmur, Normal Peripheral Pulses Gastrointestinal: Normal Bowel Sounds, No Organomegaly, No Pulsatile Mass, Non Tender, Soft Back: Normal Inspection, No CVA Tenderness, No Vertebral Tenderness Extremity: Normal Capillary Refill, Normal Inspection, Normal Range of Motion, Non Tender, No Calf Tenderness, No Pedal Edema Neurologic/Psychiatric: Alert, Oriented x3, No Motor/Sensory Deficits, Normal Mood/Affect Skin: Normal Color, Warm/Dry Lymphatic: No Adenopathy Results/Procedures Lab Patient resulted labs reviewed. FIM Transfers Therapy Code Descriptions/Definitions Functional [place] Measure: 0=Not Assessed/NA 4=Minimal Assistance 1=Total Assistance 5=Supervision or Setup 2=Maximal Assistance 6=Modified [place] 3=Moderate Assistance 7=Complete IndependenceSCALE: Activities may be completed with or without assistive devices. 4-Litnbqwfup-mysprzc completes the activity by him/herself with no assistance from a helper. 5-Set-up or Clean-up Assistance-helper sets up or cleans up; patient completes activity. [place] assists only prior to or following the activity. 4-Supervision or Touching Assistance-helper provides verbal cues and/or touchin g/steadying and/or contact guard assistance as patient completes activity. Assistance may be provided throughout the activity or intermittently. 3-Partial/Moderate Assistance-helper does LESS THAN HALF the effort. [place] lifts, holds or supports trunk or limbs, but provides less than half the effort. 2-Substantial/Maximal Assistance-helper does MORE THAN HALF the effort. [place] lifts or holds trunk or limbs and provides more than half the effort. 7-Czgroauvi-dnpgaf does ALL the effort. Patient does none of the effort to complete the activity. Or, the assistance of 2 or more helpers is required for the patient to complete the activity. If activity was not attempted, code reason: 7-Patient Refused. 9-Not Applicable-not attempted and the patient did not perform the activity before the current illness, exacerbation or injury. 10-Not Attempted due to Environmental Limitations-(lack of equipment, weather restraints, etc.). 88-Not Attempted due to Medical Conditions or Safety Concerns. Sit to Lying (QC): 4 Sit to Stand (QC): 5 Chair/Bcx-om-Kfnbw Xfer(QC): 4 Car Transfer (QC): 4 Gait Training Does the Patient Walk?: Yes Distance: 500' Walk 10 feet (QC): 5 Walk 50 ft with 2 Turns(QC): 5 Walk 150 ft (QC): 5 Walking 10ft/uneven surface-QC: 4 Gait Persons Needed: 1 Gait Assistive Device: FWW Wheelchair Training Does the Pt Use a Wheelchair?: No Wheel 50 ft with 2 turns (QC): 9 Wheel 150 ft (QC): 9 Stair Training Stair Training: Handrails/: 1 handrail #of Steps: 4 1 Step (curb) (QC): 4 4 Steps (QC): 4 12 Steps (QC): 88 Stairs: Pattern: Step to Balance Picking up an Object (QC): 88 ADL-Treatment Eating (QC): 6 Oral Hygiene (QC): 4 (SUP at sink level) Shower/Bathe Self (QC): 5 (s.u dressing wounds/ IV for shower.) Upper Body Dressing (QC): 5 (s/u) Lower Body Dressing (QC): 4 (s/u, completes in shower without assist and SUP level.) On/Off Footwear (QC): 6 (IND socks) Toileting Hygiene (QC): 6 (IND) Toilet Transfer (QC): 4 (SUP, use of walker.) Assessment/Plan Assessment and Plan Assess & Plan/Chief Complaint Assessment: Facial and head trauma from steer moving gate striking head Subdural hematoma Facial fractures Bilateral OM Severe [place] RA COPD Interstitial lung disease Plan: Nebs BM regimen IRF protocol Monitor closely 09/08/20: Abx Monitor pain BM regimen Monitor closely 09/09/20: Dr Hahn appreciated Friday procedure to help hearing loss Monitor lungs 09/10/20: Monitor BP Mucomyst nebs Monitor pain 09/11/20: Mucomyst nebs Dr Cook consultation IV steroids 09/12/20: Monitor closely Nebs Abx 09/13/20: Monitor closely IV steroids IV abx 09/14/20: Monitor lungs closely Check labs and CXR in am 09/15/20: Monitor lungs Improved status 09/16/20: IS Nebs Monitor BP 09/17/20: Monitor lungs closely IS (1) Subdural hematoma (2) Rheumatoid arthritis (3) Rales (4) Interstitial lung disease (5) Emphysema of lung (6) Orbital wall fracture (7) BPH (benign prostatic hyperplasia) DIONNE SAMUEL DO Sep 17, 2020 07:06
[2020-09-17] MEDS: RT-ALBUTEROL/IPRATROPIUM 3 ML (DUONEB) VIAL INH SCH ×2 (07:37→18:46)
[2020-09-17] MEDS: RT--FLUTICASONE/SALMETEROL 113-14 (AIRDUO RespiCLICK) IH SCH ×2 (07:39→18:47)
[2020-09-17 09:38] VITALS: BP 121/60
[2020-09-17] MEDS: guaiFENesin (MUCINEX) 600 MG TAB PO SCH (09:40)
[2020-09-17] MEDS: PANTOPRAZOLE 40 MG (PROTONIX) TAB PO SCH (09:40)
[2020-09-17] MEDS: TERAZOSIN 5 MG (HYTRIN) CAPSULE PO SCH (09:40)
[2020-09-17] MEDS: FINASTERIDE (PROSCAR) 5 MG TAB PO SCH (09:40)
[2020-09-17] MEDS: polyethylene glycoL POWDER 17 GM (MIRALAX) PACK PO SCH ×2 (09:41→21:49)
[2020-09-17] MEDS: predniSONE 10 MG TAB PO SCH (09:41)
[2020-09-17] MEDS: SENNA W/DOCUSATE (SENOKOT S) TABLET PO SCH ×2 (09:41→21:49)
[2020-09-17] MEDS: GENTAMICIN 0.3% OPHTH SOLN 5 ML LEFT EAR SCH ×3 (09:44→21:49)
[2020-09-17] MEDS: guaiFENesin/CODEINE (ROBITUSSIN AC) 10ML UDC PO PRN (10:27)
[2020-09-17] MEDS ORDERED: DICLOFENAC 1% GEL 100 GM (VOLTAREN) TUBE TOP PRN (15:00)
[2020-09-17 17:04] VITALS: BP 146/66
[2020-09-18] MEDS: SUCRALFATE 1 GM (CARAFATE) TAB PO SCH ×4 (05:42→20:54)
[2020-09-18 05:55] VITALS: BP 165/77
[2020-09-18 05:59] LABS: BASOPHILS % (AUTO) 0 % (0-10); EOSINOPHILS # (AUTO) 0.1 10^3/uL (0.0-0.3); EOSINOPHILS % (AUTO) 1 % (0-10); HEMATOCRIT 38 % (40-54); HEMOGLOBIN 12.6 g/dL (13.3-17.7); LYMPHOCYTES # (AUTO) 0.7 10^3/uL (1.0-4.0); LYMPHOCYTES % (AUTO) 5 % (12-44); MEAN CORPUSCULAR HEMOGLOBIN 30 pg (25-34); MEAN CORPUSCULAR HGB CONC 33 g/dL (32-36); MEAN CORPUSCULAR VOLUME 91 fL (80-99); MEAN PLATELET VOLUME 9.9 fL (9.0-12.2); MONOCYTES # (AUTO) 0.8 10^3/uL (0.0-1.0); MONOCYTES % (AUTO) 6 % (0-12); NEUTROPHILS # (AUTO) 11.7 10^3/uL (1.8-7.8); NEUTROPHILS % (AUTO) 82 % (42-75); PLATELET COUNT 121 10^3/uL (130-400); WHITE BLOOD COUNT 14.3 10^3/uL (4.3-11.0)
[2020-09-18 06:23] LABS: BAND NEUTROPHILS 3 %; LYMPHOCYTES % (MANUAL) 5 %; MONOCYTES % (MANUAL) 5 %; NEUTROPHILS % (MANUAL) 87 %; RBC MORPH NORMAL
[2020-09-18 06:27] LABS: ALANINE AMINOTRANSFERASE 23 U/L (0-55); ALKALINE PHOSPHATASE 90 U/L (40-136); BILIRUBIN,TOTAL 0.8 MG/DL (0.1-1.0); BUN/CREATININE RATIO 32; CALCIUM 8.4 MG/DL (8.5-10.1); CARBON DIOXIDE 25 MMOL/L (21-32); CHLORIDE 106 MMOL/L (98-107); CREATININE SERUM 0.85 MG/DL (0.60-1.30); GFR ESTIMATED > 60; GLUCOSE 80 MG/DL (70-105); POTASSIUM 3.7 MMOL/L (3.6-5.0); SODIUM 139 MMOL/L (135-145); TOTAL PROTEIN 4.9 GM/DL (6.4-8.2)
[2020-09-18] MEDS: RT-ALBUTEROL/IPRATROPIUM 3 ML (DUONEB) VIAL INH SCH ×2 (06:37→21:23)
[2020-09-18] MEDS: RT--FLUTICASONE/SALMETEROL 113-14 (AIRDUO RespiCLICK) IH SCH ×2 (06:38→21:23)
--- NOTE | 2020-09-18 07:03 | Pulmonary Progress Note ---
Standard Progress Note Progress Notes Date Seen by Provider: Sep 18, 2020 Time Seen by Provider: 07:03 Assessment & Plan [facility] with ILD -Duonebs - prednisone taper -Pt is on RA PNA -Zosyn -Monitor Facial/head trauma Subdural hematoma FABY VORA DO Sep 18, 2020 07:03
--- NOTE | 2020-09-18 07:10 | Progress Note ---
Standard Progress Note Progress Notes/Assess & Plan Date Seen by a Provider: Sep 18, 2020 Time Seen by a Provider: 06:30 Progress/Assessment & Plan [facility] Patient seen/Evaluated FAcial Fractures -need no surgical repair-will heal no nose blowing for 2-3 weeks Ears- right ear for many years left ear-tube in place but plugged-patient really can't hear anything will come back later this morning and see if I can remove the tube, suciton out the ear adn then palce a new tube so he can at leasts hear some-will also bring a battery for his hearing aid so he can begin to use it as w shama may try and replace the tube down inthe pre-op area where I have some help and also suction probably reinaldo barnes between 11 and noon when I can make it back to do that [facility]-09/14 Note left in room for patient patient sleeping-did not wake up Face-looks good-healing well Left Ear-no drainge-can hear noise but can't discriminate speech once out of hospital-reinaldo quigley examination proctor see in clinic to see if wecan do anythingto help most likely will need evaluation in for a cochlear implant ifhe qualifies-we reinaldo lopes for that evaluation once he is out ofrehab [facility]-09/18-630 Patient seen Face-healing well-overall no infection and it looks good Ears-no drainage from left ear-he can hear noise but can't understand the words Plan on seeing him in clinic on with the examination proctor to do an updated audiogram on him and document his thresholds and speech understanding-then will make arrangements for him to see an multiple tube winding machine operator in to see if he is a candidate for a cochlear implant AMELIA DE LA CRUZ MD Sep 18, 2020 07:10
--- NOTE | 2020-09-18 09:38 | Physical Therapy Daily Note ---
PT Daily Note-Current Subjective Pt agrees to Rx. Pt demonstrates SOB after long periods of ex which resolves w/ rest break. Reports his son lives a mile away from their house that he comes over everyday and helps w/ things around the house. Pt states that they have ramp at home that doesn't have a handrail but can get one if needs to. Pain Location: No Pain Reported Mental Status Patient Orientation: Person, Place, Time, Situation Attachments: Other-See Comments (Mask while out of room and uses dry erase board for communication. ) pt. hard of hearing and marker board is used for communication Transfers SCALE: Activities may be completed with or without assistive devices. 2-Yavqiqwehg-ycfbmvs completes the activity by him/herself with no assistance from a helper. 5-Set-up or Clean-up Assistance-helper sets up or cleans up; patient completes activity. [place] assists only prior to or following the activity. 4-Supervision or Touching Assistance-helper provides verbal cues and/or touching/steadying and/or contact guard assistance as patient completes activity. Assistance may be provided throughout the activity or intermittently. 3-Partial/Moderate Assistance-helper does LESS THAN HALF the effort. [place] lifts, holds or supports trunk or limbs, but provides less than half the effort. 2-Substantial/Maximal Assistance-helper does MORE THAN HALF the effort. [place] lifts or holds trunk or limbs and provides more than half the effort. 8-Nyrhfitft-yzdhpp does ALL the effort. Patient does none of the effort to complete the activity. Or, the assistance of 2 or more helpers is required for the patient to complete the activity. If activity was not attempted, code reason: 7-Patient Refused. 9-Not Applicable-not attempted and the patient did not perform the activity before the current illness, exacerbation or injury. 10-Not Attempted due to Environmental Limitations-(lack of equipment, weather restraints, etc.). 88-Not Attempted due to Medical Conditions or Safety Concerns. Roll Left & Right (QC): 6 Sit to Lying (QC): 6 Lying to Sitting/Side of Bed(Q: 6 Sit to Stand (QC): 6 Chair/Vup-dh-Bryby Xfer(QC): 6 Toilet Transfer (QC): 6 Car Transfer (QC): 6 Weight Bearing Full Weight Bearing Full Weight Bearing Gait Training Does the Patient Walk?: Yes Walk 10 feet (QC): 6 Walk 50 ft with 2 Turns(QC): 5 Walk 150 ft (QC): 5 Walking 10ft/uneven surface-QC: 5 Gait Persons Needed: 1 Gait Assistive Device: FWW Pt demonstrates independence in amb of 200' . Supervision in still recommended at this time secondary to hearing deficit Wheelchair Training Does the Pt Use a Wheelchair?: No Stair Training #of Steps: 8 1 Step (curb) (QC): 5 4 Steps (QC): 5 Stairs: Pattern: Reciprocal Pt asc stairs w/ LLE first reciprocal w/ handrail on R and desc stairs w/ RLE first step to w/ handrail on R. Balance Picking up an Object (QC): 6 Exercises Supine Ex: Rolling Seated Therapy Exercises: Sit to stand Standin way Ex=Flex, Abd, Ext, Marching, Retro gait, Side steps Standing Reps: 15 NuStep Minutes: 14 NuStep Workload: 4 Assessment Current Status: Good Progress Pt performed QC activities well. Pt gets SOB after prolonged activities which resolves w/ rest break. Rolling onto RUE hurts shoulder a little. Pt RLE is slightly weaker than L so pt asc stairs w/ L and desc w/ R. Pt in recliner all needs met and call light in hand after Rx. Pt.shares that he hopes his can DC not far behind him PT Short Term Goals Short Term Goals Time Frame: Sep 15, 2020 Roll Left & Right: 6 Sit to lyin Lying to sitting on side of be: 6 Sit to stand: 5 Chair/zha-vp-wgvwn transfer: 5 Toilet transfer: 5 Walk 10 feet: 5 Walk 50 feet with two turns: 5 Walk 150 feet: 5 Walking 10ft on uneven surface: 5 1 step (curb): 5 4 steps: 5 Picking up objects: 4 PT Assisted Goals Assisted Goals PT Assisted Goals Time Frame: Oct 06, 2020 Roll Left & Right (QC): 6 Sit to Lying (QC): 6 Lying-Sitting on Side/Bed(QC): 6 Sit to Stand (QC): 6 Chair/Ggi-ta-Ufmkb Xfer(QC): 6 Toilet Transfer (QC): 6 Car Transfer (QC): 6 Does the Patient Walk: Yes Walk 10 feet (QC): 6 Walk 50ft with 2 Turns (QC): 6 Walk 150 ft (QC): 6 Walking 10ft on Uneven Surface: 6 1 Step (curb) (QC): 6 4 Steps (QC): 6 12 Steps (QC): 88 Picking up an Object (QC): 6 Does the Pt use WC or Scooter?: No Wheel 50 feet with 2 turns (QC: 9 Wheel 150 feet: 9 PT Plan Treatment/Plan Treatment Plan: Continue Plan of Care Treatment Plan: Education, Functional Activity Jose, Functional Strength, Group Therapy, Gait, Safety, Therapeutic Exercise, Transfers Treatment Duration: Oct 06, 2020 Frequency: At least 5 of 7 days/Wk (IRF) Estimated Hrs Per Day: 1.5 hours per day Patient and/or Family Agrees t: Yes Safety Risks/Education Patient Education: Gait Training, Transfer Techniques, Correct Positioning, Safety Issues Teaching Recipient: Patient Teaching Methods: Demonstration, Discussion Response to Teaching: Verbalize Understanding, Return Demonstration Time/GCodes Time In: 845 Time Out: 930 Total Billed Treatment Time: 45 Total Billed Treatment 1, FA x2 30m, EX15m DMITRI SANTOS DOLLYMAN Sep 18, 2020 09:38
[2020-09-18] MEDS: guaiFENesin/CODEINE (ROBITUSSIN AC) 10ML UDC PO PRN ×2 (09:51→20:58)
[2020-09-18] MEDS: guaiFENesin (MUCINEX) 600 MG TAB PO SCH (09:51)
[2020-09-18] MEDS: FINASTERIDE (PROSCAR) 5 MG TAB PO SCH (09:51)
[2020-09-18] MEDS: PANTOPRAZOLE 40 MG (PROTONIX) TAB PO SCH (09:51)
[2020-09-18] MEDS: TERAZOSIN 5 MG (HYTRIN) CAPSULE PO SCH (09:51)
[2020-09-18] MEDS: ACETAMINOPHEN 325 MG TABLET PO PRN (09:52)
[2020-09-18] MEDS: GENTAMICIN 0.3% OPHTH SOLN 5 ML LEFT EAR SCH ×3 (09:54→20:58)
[2020-09-18] MEDS: predniSONE 10 MG TAB PO SCH (09:54)
[2020-09-18] MEDS: polyethylene glycoL POWDER 17 GM (MIRALAX) PACK PO SCH ×2 (10:14→20:59)
[2020-09-18] MEDS: SENNA W/DOCUSATE (SENOKOT S) TABLET PO SCH ×2 (10:14→20:59)
--- NOTE | 2020-09-18 10:20 | PM&R Progress Note ---
Subjective HPI/CC On Admission Date Seen by Provider: Sep 18, 2020 Time Seen by Provider: 10:30 Subjective/Events-last exam 09/18/20: Pt doing very well WC 14,000 Hgb [address] Hahn and Dr. Cook both saw him today Studio Producer with Dr. Hahn appointment follow up has been made DC planned tomorrow with home health 09/17/20: Patient doing well Trying to navigate his closed caption phone Voltaren gel on his knees Robitussin AC given Breathe Right strips recommended Completed Zosyn 09/16/20: Patient doing well Hearing a little bit now BP stable Lungs are improved Changing APAP to prn 09/15/20: Patient doing well Prednisone initiated and Solumedrol DC Monitored closely 09/14/20: Much improved Productive sputum now Dr Hahn reports ear canal is completely occluded BM+ Skin tear improved 09/13/20: Pt dramatically improved IV Zosyn and Solumedrol have helped him Snored a lot last night No oxygen required Nebulizer treatments maintained Overall much improved 09/12/20: Pt doing a lot better IV steroids have caused the WC to become elevated at 22,000 and Zosyn was started due to history of pseudomonas Overall ambulating around pretty well 09/11/20: Drowsiness from conscious sedation from ear surgery Dr Hahn so will require less than time signal wirer from therapy today. Pt came back from ear procedure by Dr. Hahn Mucomyst nebulizer treatments BID scheduled Consulting Dr. Cook Antibiotics for ear infection coming to an end Labs reviewed 09/10/20: Patient doing well Coarse upper bronchial sounds No pain reported IS use has increased Mucomyst Nebs will be used Dr Hahn will take him to OR tomorrow brief sedation for ears 09/09/20: Patient doing better Less dyspnea and cough Dr Hahn saw him today and will take him to OR for a sedated surgery on Friday to remove debris causing hearing loss IS used Eye drops ordered CT scan subdural noted on CT 09/08/20: Patient settling in well Pain about the same of the right rib fracture BM ++ today after laxatives GERD treatment requested Dr Hahn consulted Cough is productive Abx maintained Prednisone maintained PCT and LA normal Lungs better with Nebs Review of Systems General: Fatigue Objective Exam Vital Signs Vital Signs Date Time Temp Pulse Resp B/P (MAP) Pulse Ox O2 Delivery O2 Flow Rate FiO2 09/18/20 16:53 36.4 83 16 160/73 (102) 96 Room Air 09/12/20 02:14 0.00 Capillary Refill : General Appearance: No Apparent Distress, WD/WN, Chronically ill HEENT: PERRL/EOMI, Pharynx Normal, Other Neck: Full Range of Motion, Normal Inspection, Non Tender, Supple, Carotid Bruit Respiratory: Chest Non Tender, No Accessory Muscle Use, No Respiratory Distress, Decreased Breath Sounds Cardiovascular: Regular Rate, Rhythm, No Edema, No Gallop, No JVD, No Murmur, Normal Peripheral Pulses Gastrointestinal: Normal Bowel Sounds, No Organomegaly, No Pulsatile Mass, Non Tender, Soft Back: Normal Inspection, No CVA Tenderness, No Vertebral Tenderness Extremity: Normal Capillary Refill, Normal Inspection, Normal Range of Motion, Non Tender, No Calf Tenderness, No Pedal Edema Neurologic/Psychiatric: Alert, Oriented x3, No Motor/Sensory Deficits, Normal Mood/Affect Skin: Normal Color, Warm/Dry Lymphatic: No Adenopathy Results/Procedures Lab Laboratory Tests 09/18/20 05:40 Patient resulted labs reviewed. FIM Transfers Therapy Code Descriptions/Definitions Functional [place] Measure: 0=Not Assessed/NA 4=Minimal Assistance 1=Total Assistance 5=Supervision or Setup 2=Maximal Assistance 6=Modified [place] 3=Moderate Assistance 7=Complete IndependenceSCALE: Activities may be completed with or without assistive devices. 5-Drxgpwvfrf-opmnzdw completes the activity by him/herself with no assistance from a helper. 5-Set-up or Clean-up Assistance-helper sets up or cleans up; patient completes activity. [place] assists only prior to or following the activity. 4-Supervision or Touching Assistance-helper provides verbal cues and/or touching/steadying and/or contact guard assistance as patient completes activity. Assistance may be provided throughout the activity or intermittently. 3-Partial/Moderate Assistance-helper does LESS THAN HALF the effort. [place] lifts, holds or supports trunk or limbs, but provides less than half the effort. 2-Substantial/Maximal Assistance-helper does MORE THAN HALF the effort. [place] lifts or holds trunk or limbs and provides more than half the effort. 8-Lfbweexmb-vyervd does ALL the effort. Patient does none of the effort to complete the activity. Or, the assistance of 2 or more helpers is required for the patient to complete the activity. If activity was not attempted, code reason: 7-Patient Refused. 9-Not Applicable-not attempted and the patient did not perform the activity before the current illness, exacerbation or injury. 10-Not Attempted due to Environmental Limitations-(lack of equipment, weather restraints, etc.). 88-Not Attempted due to Medical Conditions or Safety Concerns. Roll Left to Right (QC): 6 Sit to Lying (QC): 6 Sit to Stand (QC): 6 Chair/Omg-nb-Oisrx Xfer(QC): 6 Car Transfer (QC): 6 Gait Training Does the Patient Walk?: Yes Distance: 500' Walk 10 feet (QC): 6 Walk 50 ft with 2 Turns(QC): 5 Walk 150 ft (QC): 5 Walking 10ft/uneven surface-QC: 5 Gait Persons Needed: 1 Gait Assistive Device: FWW Wheelchair Training Does the Pt Use a Wheelchair?: No Wheel 50 ft with 2 turns (QC): 9 Wheel 150 ft (QC): 9 Stair Training Stair Training: Handrails/: 1 handrail #of Steps: 8 1 Step (curb) (QC): 5 4 Steps (QC): 5 12 Steps (QC): 88 Stairs: Pattern: Reciprocal Balance Picking up an Object (QC): 6 ADL-Treatment Eating (QC): 6 Oral Hygiene (QC): 4 (SUP at sink level) Shower/Bathe Self (QC): 5 (s.u dressing wounds/ IV for shower.) Upper Body Dressing (QC): 5 (s/u) Lower Body Dressing (QC): 4 (s/u, completes in shower without assist and SUP level.) On/Off Footwear (QC): 6 (IND socks) Toileting Hygiene (QC): 6 (IND) Toilet Transfer (QC): 4 (SUP, use of walker.) Assessment/Plan Assessment and Plan Assess & Plan/Chief Complaint Assessment: Facial and head trauma from steer moving gate striking head Subdural hematoma Facial fractures Bilateral OM Severe [place] RA COPD Interstitial lung disease Plan: Nebs BM regimen IRF protocol Monitor closely 09/08/20: Abx Monitor pain BM regimen Monitor closely 09/09/20: Dr Hahn appreciated Friday procedure to help hearing loss Monitor lungs 09/10/20: Monitor BP Mucomyst nebs Monitor pain 09/11/20: Mucomyst nebs Dr Cook consultation IV steroids 09/12/20: Monitor closely Nebs Abx 09/13/20: Monitor closely IV steroids IV abx 09/14/20: Monitor lungs closely Check labs and CXR in am 09/15/20: Monitor lungs Improved status 09/16/20: IS Nebs Monitor BP 09/17/20: Monitor lungs closely IS 09/18/20: DC tomorrow The patient has a mobility limitation that significantly impairs his/her ability to do one or more mobility-related activities of daily living in customary locations in the home. The patients mobility limitation is one that: 1. Prevents the patient from accomplishing the mobility-related activity entirely, or 2. Places the patient at reasonably determined heightened risk of morbidity or mortality secondary to the attempts to perform the mobility-related activity, or 3. Prevents the patient from completing the mobility-related activity within a reasonable time frame. The patient is safely able to use the walker as demonstrated during skilled rehabilitation. The functional mobility deficit can be sufficiently resolved with use of a walker. (1) Subdural hematoma (2) Rheumatoid arthritis (3) Rales (4) Interstitial lung disease (5) Emphysema of lung (6) Orbital wall fracture (7) BPH (benign prostatic hyperplasia) DIONNE SAMUEL DO Sep 18, 2020 10:20
[2020-09-18] MEDS ORDERED: PANT40TA52 PO (10:37)
[2020-09-18] MEDS ORDERED: SUCR1TAB PO (10:37)
[2020-09-18] MEDS ORDERED: PRD10T PO (10:37)
[2020-09-18] MEDS ORDERED: FLUT1DIS26 IH (10:37)
[2020-09-18] MEDS ORDERED: ACHD5005 PO (10:37)
[2020-09-18] MEDS ORDERED: IPRA3AMP31 INH (10:37)
[2020-09-18] MEDS ORDERED: GUAI473L29 PO (10:37)
--- NOTE | 2020-09-18 10:39 | D/C HH Face to Face Order ---
D/C Face to Face Orders Reconcile Patient Problems Problems Reviewed?: Yes Instructions for Patient [facility] Patient Instructions/FollowUp: PCP Dr Callahan 1 week Physician to follow Patient: [place] Discharge Diet for Home: No Restrictions Patient Problems: s/p rib fracture and facial fractures Severe UNALAKLEET s/p PNA Patient Data-Allergies,Ht & Wt Patient Allergies: Coded Allergies: Sulfa (Sulfonamide Antibiotics) (Unverified Allergy, Unknown, 07/04/20) Height (Feet): 5 Height (Inches): 10.00 Weight (Pounds): 199 Weight (Ounces): 16.0 Home Health Need/Face to Face Date of Face to Face: Sep 18, 2020 Clinical Findings: Generalized weakness and fatigue, Instability, Muscle weakness, Shortness of breath, Unsteady gait I have seen Pt tyly-sq-kdpy: Yes Discharged To: Home Diagnosis/Conditions: s/p rib fracture and facial fractures Severe UNALAKLEET s/p PNA Patient is Homebound due to: Deanna fall risk due to instabilty, Muscle weakness, Shortness of breath/distress Homebound Status Due to the above stated illness, injury or surgical procedure (medical condition or diagnosis) and associated clinical findings, the patient is homebound because of his/her inability to leave home except with aid of a supportive device and/or person AND leaving the home requires a considerable and taxing effort or is medically contraindicated. Pt req the following assistanc: Walker Home Health Nursing Orders Home Health Services Order: Nursing Services, Grain Spouter-Evaluate & Treat, Physical Therapy-Evaluate & Treat Home Health Infusion Therapy Line Start Date: Sep 15, 2020 Certify Stmt I certify that this patient is under my care and that I, a nurse practitioner or a physician; a assistant production manager working with me, had a face to face encounter that - meets the physician face to face encounter requirements with this patient as dated. DIONNE SAMUEL DO Sep 18, 2020 10:39
--- NOTE | 2020-09-18 12:31 | Occupational Ther Daily Note ---
OT Current Status-Daily Note Subjective Pt. indicates that his right shoulder is sore with advanced movement, (shoulder flexion exercises). Pt. denies wanting pain medication and OT focuses on exercises that don't hurt his shoulder. Mental Status/Objective Patient Orientation: Person, Place, Time, Situation ADL-Treatment Therapy Code Descriptions/Definitions Functional [place] Measure: 0=Not Assessed/NA 4=Minimal Assistance 1=Total Assistance 5=Supervision or Setup 2=Maximal Assistance 6=Modified [place] 3=Moderate Assistance 7=Complete IndependenceSCALE: Activities may be completed with or without assistive devices. 6-Ezsksjhuse-wxerkdc completes the activity by him/herself with no assistance from a helper. 5-Set-up or Clean-up Assistance-helper sets up or cleans up; patient completes activity. [place] assists only prior to or following the activity. 4-Supervision or Touching Assistance-helper provides verbal cues and/or touching/steadying and/or contact guard assistance as patient completes activity. Assistance may be provided throughout the activity or intermittently. 3-Partial/Moderate Assistance-helper does LESS THAN HALF the effort. [place] lifts, holds or supports trunk or limbs, but provides less than half the effort. 2-Substantial/Maximal Assistance-helper does MORE THAN HALF the effort. [place] lifts or holds trunk or limbs and provides more than half the effort. 7-Ydkpfbvue-yhegqy does ALL the effort. Patient does none of the effort to complete the activity. Or, the assistance of 2 or more helpers is required for the patient to complete the activity. If activity was not attempted, code reason: 7-Patient Refused. 9-Not Applicable-not attempted and the patient did not perform the activity before the current illness, exacerbation or injury. 10-Not Attempted due to Environmental Limitations-(lack of equipment, weather restraints, etc.). 88-Not Attempted due to Medical Conditions or Safety Concerns. Eating (QC): 6 Oral Hygiene (QC): 6 Shower/Bathe Self (QC): 5 Upper Body Dressing (QC): 6 Lower Body Dressing (QC): 6 On/Off Footwear: 6 Toileting Hygiene (QC): 6 Toilet Transfer (QC): 6 Other Treatment Pt. is able to complete ADL tasks this date with OT. After showering, dressing, toileting, and grooming, pt. ambulated with walker with Mod I to therapy gym. Pt. completed 4 bilateral UE exercises with 2 lb. dumbbell in all planes. Pt. completed exercises more slowly when using right UE, as to protect right shoulder. Pt. also completed arm bike at min resistance x 15minutes to increase overall strength and independence. Donned 1 lb. wrist weights and completed bilateral fine motor activities with reaching for improved endurance and strength. Ambulated back to room with walker and Mod I. All needs met. Education OT Patient Education: Correct positioning, Exercise program, Modified ADL techniques, Progress toward Goal/Update tx plan, Purpose of tx/functional activities, Reviewed precautions, Rehab process, Transfer techniques Teaching Recipient: Patient Teaching Methods: Demonstration, Discussion Response to Teaching: Verbalize Understanding, Return Demonstration OT Short Term Goals Short Term Goals Time Frame: Sep 15, 2020 Shower/bathe self: 5 Lower body dressin Putting on/taking off footwear: 5 OT Glassware Engraver Goals Glassware Engraver Goals Time Frame: Sep 29, 2020 Eating (QC): 6 Oral Hygiene (QC): 6 Toileting Hygiene (QC): 6 Shower/Bathe Self (QC): 6 Upper Body Dressing (QC): 6 Lower Body Dressing (QC): 6 On/Off Footwear (QC): 6 Additional Goals: 1-Demonstrate ADL Tasks, 2-Verbalize Understanding, 3- ImproveStrength/Jose 1=Demonstrate adherence to instructed precautions during ADL tasks. 2=Patient will verbalize/demonstrate understanding of assistive devices/modifications for ADL. 3=Patient will improve strength/tolerance for activity to enable patient to perform ADL's. OT Education/Plan Problem List/Assessment Assessment: Decreased Activ Tolerance Discharge Recommendations Plan/Recommendations: Continue POC Therapy Discharge Recommendati: Home & Family Treatment Plan/Plan of Care Treatment,Training & Education: Yes Patient would benefit from OT for education, treatment and training to promote independence in ADL's, mobility, safety and/or upper extremity function for ADL's. Plan of Care: ADL Retraining, Functional Mobility, Group Exercise/Act as Ind, UE Funct Exercise/Act Treatment Duration: Sep 29, 2020 Frequency: At least 5 of 7 days/Wk (IRF) Estimated Hrs Per Day: 1.5 hours per day Agreement: Yes Rehab Potential: Good Time/GCodes Start Time: 10:30 Stop Time: 12:00 Total Time Billed (hr/min): 90 Billed Treatment Time 1, ADL x 45minutes, Ex x 30minutes, FA x 15minutes CARLITA HOWELL OT Sep 18, 2020 12:31
--- NOTE | 2020-09-18 15:13 | Physical Therapy Daily Note ---
PT Daily Note-Current Subjective Pt reports his R shoulder pain has diminished and that his L knee pain is not as bad today. Pt demonstrates SOB after pronlonged walking. Pt reports having numbness in R foot but states this is from previous back injury which affected the sciatic nerve. Pt c/o HS tightness while performing LAQ. Pt agrees to Rx. Pain Location: Left Location Body Site: Knee Comment: Reports pain but does not rate Mental Status Patient Orientation: Person, Place, Time, Situation Attachments: Other-See Comments Mask while out of room and pt uses dry [place] board for communication Transfers SCALE: Activities may be completed with or without assistive devices. 2-Gbbmqbxaxv-muxldyo completes the activity by him/herself with no assistance from a helper. 5-Set-up or Clean-up Assistance-helper sets up or cleans up; patient completes activity. Perry assists only prior to or following the activity. 4-Supervision or Touching Assistance-helper provides verbal cues and/or touching/steadying and/or contact guard assistance as patient completes activity. Assistance may be provided throughout the activity or intermittently. 3-Partial/Moderate Assistance-helper does LESS THAN HALF the effort. Perry lifts, holds or supports trunk or limbs, but provides less than half the effort. 2-Substantial/Maximal Assistance-helper does MORE THAN HALF the effort. Perry lifts or holds trunk or limbs and provides more than half the effort. 5-Xtzcwoyqx-abonbg does ALL the effort. Patient does none of the effort to complete the activity. Or, the assistance of 2 or more helpers is required for the patient to complete the activity. If activity was not attempted, code reason: 7-Patient Refused. 9-Not Applicable-not attempted and the patient did not perform the activity before the current illness, exacerbation or injury. 10-Not Attempted due to Environmental Limitations-(lack of equipment, weather restraints, etc.). 88-Not Attempted due to Medical Conditions or Safety Concerns. Sit to Stand (QC): 5 Toilet Transfer (QC): 5 Weight Bearing Full Weight Bearing Full Weight Bearing Gait Training Does the Patient Walk?: Yes Distance: 500' x 1 300' x1 Walk 10 feet (QC): 5 Walk 50 ft with 2 Turns(QC): 5 Walk 150 ft (QC): 5 Gait Persons Needed: 1 Gait Assistive Device: FWW Exercises Seated Therapy Exercises: Ankle pumps, Sit to stand, Long arc quads, Hip flexion, Hamstring Curls, Glut set Seated Reps: 15 Standing: Retro gait, Side steps Standing Reps: 5 Assessment Current Status: Good Progress Pt c/o HS tightness while performing LAQ so therapist provided HS stretch to help w/ this with goo d results. Pt c/o foot numbness so performed figure 4 stretch to help w/ this also with good results. Pt distance of amb displays strength and endurance has improved since last week. Therapist provided skilled verbal cues to help pt w/ retro gait and side steps. Pt TRF back to recliner call light in hand all needs met. PT Short Term Goals Short Term Goals Time Frame: Sep 15, 2020 Roll Left & Right: 6 Sit to lyin Lying to sitting on side of be: 6 Sit to stand: 5 Chair/dkq-qc-bkaul transfer: 5 Toilet transfer: 5 Walk 10 feet: 5 Walk 50 feet with two turns: 5 Walk 150 feet: 5 Walking 10ft on uneven surface: 5 1 step (curb): 5 4 steps: 5 Picking up objects: 4 PT Sales Agent Trading Stamps Goals Sales Agent Trading Stamps Goals PT Sales Agent Trading Stamps Goals Time Frame: Oct 06, 2020 Roll Left & Right (QC): 6 Sit to Lying (QC): 6 Lying-Sitting on Side/Bed(QC): 6 Sit to Stand (QC): 6 Chair/Psk-nd-Cwoqi Xfer(QC): 6 Toilet Transfer (QC): 6 Car Transfer (QC): 6 Does the Patient Walk: Yes Walk 10 feet (QC): 6 Walk 50ft with 2 Turns (QC): 6 Walk 150 ft (QC): 6 Walking 10ft on Uneven Surface: 6 1 Step (curb) (QC): 6 4 Steps (QC): 6 12 Steps (QC): 88 Picking up an Object (QC): 6 Does the Pt use WC or Scooter?: No Wheel 50 feet with 2 turns (QC: 9 Wheel 150 feet: 9 PT Plan Treatment/Plan Treatment Plan: Continue Plan of Care Treatment Plan: Education, Functional Activity Jose, Functional Strength, Group Therapy, Gait, Safety, Therapeutic Exercise, Transfers Treatment Duration: Oct 06, 2020 Frequency: At least 5 of 7 days/Wk (IRF) Estimated Hrs Per Day: 1.5 hours per day Patient and/or Family Agrees t: Yes Safety Risks/Education Patient Education: Gait Training, Correct Positioning, Safety Issues Teaching Methods: Demonstration, Discussion Response to Teaching: Verbalize Understanding, Return Demonstration Time/GCodes Time In: 1425 Time Out: 1510 Total Billed Treatment Time: 45 Total Billed Treatment 1, EX x2 (35m), GT (10m) DMITRI SANTOS CONTRACT ASSOCIATE MANAGER Sep 18, 2020 15:13
[2020-09-18 16:53] VITALS: BP 160/73
[2020-09-18] MEDS: MELATONIN 3 MG TABLET PO PRN (20:58)
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
[2020-09-19 06:43] VITALS: BP 168/85
[2020-09-19] MEDS: SUCRALFATE 1 GM (CARAFATE) TAB PO SCH (06:43)
--- NOTE | 2020-09-19 08:25 | Therapy Team Discharge Summary ---
Therapy Discharge Summary Discharge Recommendations Date of Discharge Physical Therapy Patient came to rehab following a subdural hematoma. Upon evaluation patient performed bed mobility and supine <-> sit with independence, sit <-> stand and transfers with CGA/SBA, car transfer CGA/SBA, ambulated 150' with a rolling walker with CGA/SBA (including 50' with at least 2 turns of 90 degrees and 10' over an uneven surface), and went up and down 4 steps using 2 handrails with CGA/SBA. Patient has been performing bed mobility and transfer training, balance and endurance training, functional strengthening, stair training, gait training, and education. Patient has made some progress and has met his manager intermediate goals for bed mobility, transfers, and picking up an object from the floor. 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 Patient is discharging from this facility today and will be discharged from PT at this time. Occupational Therapy Decreased Activ Tolerance PT Mixer Attendant Goals Mixer Attendant Goals PT Mixer Attendant Goals Time Frame: Oct 06, 2020 Roll Left to Right (QC): 6 Sit to Lying (QC): 6 Lying-Sitting on Side/Bed(QC): 6 Sit to Stand (QC): 6 Chair/Syd-zp-Kqofe Xfer(QC): 6 Car Transfer (QC): 6 Does the Patient Walk: Yes Walk 10 feet (QC): 6 Walk 10ft-Uneven Surface(QC): 6 Walk 50ft with 2 Turns (QC): 6 Walk 150 ft (QC): 6 Does the Pt use WC or Scooter?: No Wheel 50 feet with 2 turns (QC: 9 1 Step (curb) (QC): 6 4 Steps (QC): 6 12 Steps (QC): 88 Picking up an Object (QC): 6 OT Halfway Goals Halfway Goals Time Frame: Sep 29, 2020 Eating (FIM): 6 Eating (QC): 6 Oral Hygiene (QC): 6 Shower/Bathe Self (QC): 6 Upper Body Dressing (QC): 6 Lower Body Dressing (QC): 6 On/Off Footwear (QC): 6 Toileting(FIM): 6 Toileting Hygiene (QC): 6 Toilet/Commode Transfer (QC): 6 Additional Goals: 1-Demonstrate ADL Tasks, 2-Verbalize Understanding, 3- ImproveStrength/Jose 1=Demonstrate adherence to instructed precautions during ADL tasks. 2=Patient will verbalize/demonstrate understanding of assistive devices/modifications for ADL. 3=Patient will improve strength/tolerance for activity to enable patient to perform ADL's. JAMES WONG PT Sep 19, 2020 08:25
[2020-09-19] MEDS: TERAZOSIN 5 MG (HYTRIN) CAPSULE PO SCH (08:35)
[2020-09-19] MEDS: FINASTERIDE (PROSCAR) 5 MG TAB PO SCH (08:35)
[2020-09-19] MEDS: guaiFENesin (MUCINEX) 600 MG TAB PO SCH (08:35)
[2020-09-19] MEDS: PANTOPRAZOLE 40 MG (PROTONIX) TAB PO SCH (08:35)
[2020-09-19] MEDS: GENTAMICIN 0.3% OPHTH SOLN 5 ML LEFT EAR SCH (08:36)
[2020-09-19] MEDS: polyethylene glycoL POWDER 17 GM (MIRALAX) PACK PO SCH (08:36)
[2020-09-19] MEDS: predniSONE 10 MG TAB PO SCH (08:36)
[2020-09-19 08:37] VITALS: BP 166/70
[2020-09-19] MEDS: SENNA W/DOCUSATE (SENOKOT S) TABLET PO SCH (08:37)
--- NOTE | 2020-09-19 08:42 | Therapy Team Discharge Summary ---
Therapy Discharge Summary Discharge Recommendations Date of Discharge 09-19-20 Therapy D/C Recommendations: Home w/ Family Support, Occupational Therapy Home Care Occupational Therapy Pt. seen by Occupational therapy to increase overall function with daily skills, as well as increase strength and endurance for return home. Pt. has met all goals. He is able to ambulate with walker, shower, dress with Mod I. Pt. is to return home today with family support. Recommend walker for safety, and Occupational therapy home evaluation for safety within familiar environment. Decreased Activ Tolerance PT Mcfp Goals Mcfp Goals PT Mcfp Goals Time Frame: Oct 06, 2020 Roll Left to Right (QC): 6 Sit to Lying (QC): 6 Lying-Sitting on Side/Bed(QC): 6 Sit to Stand (QC): 6 Chair/Yns-sh-Wgogj Xfer(QC): 6 Car Transfer (QC): 6 Does the Patient Walk: Yes Walk 10 feet (QC): 6 Walk 10ft-Uneven Surface(QC): 6 Walk 50ft with 2 Turns (QC): 6 Walk 150 ft (QC): 6 Does the Pt use WC or Scooter?: No Wheel 50 feet with 2 turns (QC: 9 1 Step (curb) (QC): 6 4 Steps (QC): 6 12 Steps (QC): 88 Picking up an Object (QC): 6 OT Security Patrol Officer Goals Mcfp Goals Time Frame: Sep 29, 2020 Eating (FIM): 6 (met) Eating (QC): 6 (met) Oral Hygiene (QC): 6 (met) Shower/Bathe Self (QC): 6 (met) Upper Body Dressing (QC): 6 (met) Lower Body Dressing (QC): 6 (met) On/Off Footwear (QC): 6 (met) Toileting(FIM): 6 (met) Toileting Hygiene (QC): 6 (met) Toilet/Commode Transfer (QC): 6 (met) Additional Goals: 1-Demonstrate ADL Tasks, 2-Verbalize Understanding, 3- ImproveStrength/Jose 1=Demonstrate adherence to instructed precautions during ADL tasks. 2=Patient will verbalize/demonstrate understanding of assistive devices/modifications for ADL. 3=Patient will improve strength/tolerance for activity to enable patient to perform ADL's. CARLITA HOWELL OT Sep 19, 2020 08:42
[2020-09-19] MEDS: RT-ALBUTEROL/IPRATROPIUM 3 ML (DUONEB) VIAL INH SCH (08:54)
[2020-09-19] MEDS: RT--FLUTICASONE/SALMETEROL 113-14 (AIRDUO RespiCLICK) IH SCH (08:55)
[2020-09-19 12:00] VITALS: BP 166/70
== END 2020-09-19 12:28 | disposition home health service (06) | DRG 949 ==
PROVIDERS: ADMIT Internal Medicine; ATTEND Internal Medicine
PROC: [UNRECOGNIZED PROCEDURE] (principal; 2020-09-11)
DX: S06.5X9D Traumatic subdural hemorrhage with loss of consciousness of unspecified duration, subsequent encounter (principal); J15.1 Pneumonia due to Pseudomonas; J84.9 Interstitial pulmonary disease, unspecified; S22.31XD Fracture of one rib, right side, subsequent encounter for fracture with routine healing; S02.85XD Fracture of orbit, unspecified, subsequent encounter for fracture with routine healing; J43.9 Emphysema, unspecified; N40.0 Benign prostatic hyperplasia without lower urinary tract symptoms; M06.9 Rheumatoid arthritis, unspecified; Z20.822 Contact with and (suspected) exposure to COVID-19; H65.93 Unspecified nonsuppurative otitis media, bilateral; H91.93 Unspecified hearing loss, bilateral; K59.00 Constipation, unspecified; K21.9 Gastro-esophageal reflux disease without esophagitis; B35.1 Tinea unguium; G60.9 Hereditary and idiopathic neuropathy, unspecified; Z97.4 Presence of external hearing-aid; Z79.2 Long term (current) use of antibiotics; Z79.52 Long term (current) use of systemic steroids; Z79.899 Other long term (current) drug therapy; Z88.2 Allergy status to sulfonamides; W20.8XXD Other cause of strike by thrown, projected or falling object, subsequent encounter
CPT/HCPCS: 36410; 36415; 70450; 71045; 71046; 76937; 80053; 81000; 83605; 83880; 84145; 85007; 85025; 85027; 87081; 87635; 94640; 94760

== ENCOUNTER → 2020-09-11 | Day surgery (SDC) | payer MEDICARE ==
[2020-09-11] VITALS (7 sets, daily range): BP systolic 91–127; BP diastolic 48–59
[~2020-09-11] MED LIST changes: +ACET-2840 PO; +FLUT1DIS26 IH; +GENT5DRO30 LEFT EAR; +PRD20T PO
--- NOTE | 2020-09-11 08:36 | Progress Note-Post Operative ---
Post-Operative Progess Note Surgeon (s)/[employer] Choir Director (s) Surgeon AMELIA DE LA CRUZ MD [employer] Ch[employer] Director n/a Pre-Operative Diagnosis Chronic Left INDIO Post-Operative Diagnosis same Post-Op Procedure Note Date of Procedure: Sep 11, 2020 Name of Procedure Performed: EUA with Left Myringotomy with T-Tube Description & Findings Description and Findings: n/a Anesthesia Type lma Estimated Blood Loss minimal Packing none. Specimen(s) collected/removed none AMELIA DE LA CRUZ MD Sep 11, 2020 08:36
--- NOTE | 2020-09-11 08:36 | Progress Note-Pre Operative ---
Pre-Operative Progress Note H&P Reviewed The H&P was reviewed, patient examined and no changes noted. Date Seen by Provider: Sep 11, 2020 Time Seen by Provider: 08:15 Date H&P Reviewed: Sep 11, 2020 Time H&P Reviewed: 08:15 Pre-Operative Diagnosis: Chronic Left INDIO AMELIA DE LA CRUZ MD Sep 11, 2020 08:36
--- NOTE | 2020-09-11 10:02 | Anesthesia-General Post-Op ---
General Patient Condition Mental Status/LOC: Same as Preop Cardiovascular: Satisfactory Nausea/Vomiting: Absent Respiratory: Satisfactory Pain: Controlled Complications: Absent Post Op Complications Complications None Follow Up Care/Instructions Patient Instructions None needed. Anesthesia/Patient Condition Patient Condition Patient is doing well, no complaints, stable vital signs, no apparent adverse anesthesia problems. No complications reported per nursing. D/C home per [facility] Criteria: JACQUELIN Cordova CRNA Sep 11, 2020 10:02
--- NOTE | 2020-09-12 08:20 | Anesthesia-General Post-Op ---
General Patient Condition Mental Status/LOC: Same as Preop Cardiovascular: Satisfactory Nausea/Vomiting: Absent Respiratory: Satisfactory Pain: Controlled Complications: Absent Post Op Complications Complications None Follow Up Care/Instructions Patient Instructions None needed. Anesthesia/Patient Condition Patient Condition Patient is doing well, no complaints, stable vital signs, no apparent adverse anesthesia problems. D/C home per [facility] [place] Criteria: JAMES Zhao DO Sep 12, 2020 08:20
== END ==
LOC: SDC 07:52
PROVIDERS: ATTEND Otolaryngology Otolaryngology/Facial Plastic Surgery
DX: H65.22 Chronic serous otitis media, left ear (principal); S01.81XA Laceration without foreign body of other part of head, initial encounter; Z88.2 Allergy status to sulfonamides

== ENCOUNTER → 2020-10-17 | Outpatient (CLI) | payer MEDICARE ==
[~2020-10-17] MED LIST changes: +GUAI473L29 PO; +PANT40TA52 PO; +PRD10T PO; +SUCR1TAB PO
== END ==
LOC: CARD 08:56
PROVIDERS: ATTEND Internal Medicine Cardiovascular Disease
DX: I11.9 Hypertensive heart disease without heart failure (principal); I25.10 Atherosclerotic heart disease of native coronary artery without angina pectoris
CPT/HCPCS: 93306

== ENCOUNTER → 2020-10-18 | Outpatient (CLI) | payer MEDICARE ==
[~2020-10-18] VITALS: Ht 177 cm; Wt 86.0 kg
[~2020-10-18] MED LIST changes: +CATHETER FLUSH 10 ML SYR IV PRN; +REGADENOSON 0.4 MG/5 ML SYR (LEXISCAN) IV ONE
[2020-10-18 08:32] LABS: ALANINE AMINOTRANSFERASE 13 U/L (0-55); ALBUMIN 3.2 GM/DL (3.2-4.5); ALKALINE PHOSPHATASE 103 U/L (40-136); BILIRUBIN,TOTAL 1.1 MG/DL (0.1-1.0); BUN/CREATININE RATIO 14; CALCIUM 8.8 MG/DL (8.5-10.1); CARBON DIOXIDE 29 MMOL/L (21-32); CHLORIDE 103 MMOL/L (98-107); GFR ESTIMATED > 60; GLUCOSE 89 MG/DL (70-105); POTASSIUM 4.2 MMOL/L (3.6-5.0); SODIUM 141 MMOL/L (135-145); TOTAL PROTEIN 5.8 GM/DL (6.4-8.2)
[2020-10-18 10:00] VITALS: BP 149/72
--- NOTE | 2020-10-18 13:51 | Cardiology Stress Test Report ---
Stress Test Report Date of Procedure/Referring: Date of Procedure: October 18, 2020 PCP Anisa Ferguson MD Admitting Physician Kathy Callahan MD Indications: HTN Baseline Heart Rate: 78 Baseline Blood Pressure: Blood Pressure Systolic: 149 Blood Pressure Diastolic: 72 Baseline Vitals Vital Signs Date Time Temp Pulse Resp B/P (MAP) Pulse Ox O2 Delivery O2 Flow Rate FiO2 10/18/20 10:00 88 17 149/72 (97) 97 Baseline EKG: Baseline EKG: NSR Summary After explaining the procedure to the patient, he signed a consent and then brought to the stress nuclear laboratory. Patient received 0.4 mg Lexiscan for stress test, ECG, heart rate and blood pressure were monitored continuously. Resting and stress dose of radio tracer were injected, imaging was acquired and reviewed in short axis, horizontal long axis and vertical long axis views. TID: 0.97 SSS: 7 SDS: 2 EF: 51 1. Patient tolerated Lexiscan well 2. Baseline hypertension noted during test 3. Diaphragmatic attenuation with fixed defect involving the mid to apical in ferior wall with subtle reversibility 4. Normal left ventricular size, EF 51% ANISA FERGUSON MD October 18, 2020 13:51
== END ==
LOC: CARD 07:52
PROVIDERS: ATTEND Internal Medicine Cardiovascular Disease
DX: I25.10 Atherosclerotic heart disease of native coronary artery without angina pectoris (principal); I10 Essential (primary) hypertension; E78.2 Mixed hyperlipidemia
CPT/HCPCS: 78452; 80053; 93017; A9502; 36415

== ENCOUNTER 2020-11-01 07:49 | Day surgery (SDC) | payer MEDICARE ==
[~2020-11-01] VITALS: Ht 177.8 cm; Wt 84.9 kg
[~2020-11-01 07:49] MED LIST changes: -CATHETER FLUSH 10 ML SYR IV PRN; +HEParin (CATH LAB) 2,000 ML IV ONE; +LIDOCAINE 1% INJ 20 ML 20 ML VIAL ONE; -REGADENOSON 0.4 MG/5 ML SYR (LEXISCAN) IV ONE
[2020-11-01] MEDS ORDERED: NS IV 1000 ML 1,000 ML IV SCH ×2 (08:00→11:00)
[2020-11-01 08:32] VITALS: BP 133/80
[2020-11-01 08:33] LABS: HEMOGLOBIN 10.7 g/dL (13.3-17.7); MEAN PLATELET VOLUME 9.9 fL (9.0-12.2); WHITE BLOOD COUNT 7.7 10^3/uL (4.3-11.0)
[2020-11-01 08:39] LABS: INR 1.3 (0.8-1.4); PROTHROMBIN TIME PATIENT 16.2 SEC (12.2-14.7)
--- NOTE | 2020-11-01 08:44 | Diagnostic Imaging Report ---
EXAMINATION: Chest 1 view HISTORY: Dyspnea COMPARISON: Chest radiograph 09/12/2020 FINDINGS: Heart size is normal. Prominent pulmonary vasculature is seen with pulmonary vascular congestion. There is blunting of the costophrenic angles. There is patchy airspace opacities within the lung bases. Calcifications of the aorta. No pneumothorax. Degenerative changes of the thoracic spine. Osseous structures are otherwise intact. IMPRESSION: 1. Bilateral pleural effusions with adjacent atelectasis or consolidation are not significantly changed from 09/12/2020. Dictated by: Dictated on workstation # [id number]
[2020-11-01 08:45] LABS: ALBUMIN 3.4 GM/DL (3.2-4.5); BILIRUBIN,TOTAL 1.6 MG/DL (0.1-1.0); CALCIUM 9.2 MG/DL (8.5-10.1); CREATININE SERUM 1.27 MG/DL (0.60-1.30); POTASSIUM 4.1 MMOL/L (3.6-5.0); TOTAL PROTEIN 6.1 GM/DL (6.4-8.2)
[2020-11-01] MEDS ORDERED: SUCR1TAB PO (09:43)
[2020-11-01] MEDS ORDERED: LEVO5TAB12 PO (09:43)
[2020-11-01] MEDS ORDERED: FURO20TA4 PO (09:43)
[2020-11-01] MEDS ORDERED: GUAI600T28 PO (09:43)
[2020-11-01] MEDS ORDERED: PANT40TA52 PO (09:43)
[2020-11-01] MEDS ORDERED: IPRA3AMP31 IH (09:43)
[2020-11-01] MEDS ORDERED: POTA-51 PO (09:43)
[2020-11-01] MEDS ORDERED: FLUT1DIS26 IH (09:43)
[2020-11-01] MEDS ORDERED: FLUT9.9S NS (09:43)
[2020-11-01] MEDS ORDERED: DILT120C88 PO (09:43)
[2020-11-01] MEDS ORDERED: MTP25TSR PO (09:43)
[2020-11-01] MEDS ORDERED: APIX2.5T PO (09:43)
[2020-11-01] MEDS ORDERED: CHOL200074 PO (09:46)
[2020-11-01] MEDS ORDERED: [UNRECOGNIZED DRUG - OTHER] PO (09:46)
--- NOTE | 2020-11-01 09:56 | Conscious Sedation/ASA ---
Conscious Sedation Pre-Proced Time 09:56 ASA Score 3 For ASA 3 and 4: Consider anesthesia and medical clearance. Also, for patients with a history of failed moderate sedation consider anesthesia. Airway Lungs Heart ASA score ASA 1: a normal healthy patient ASA 2: a patient with a mild systemic disease (mid diabetes, controlled hypertension, obesity x ASA 3: a patient with a severe systemic disease that limits activity (angina, COPD, prior Myocardial infarction) ASA 4: a patient with an incapacitating disease that is a constant threat to life (CHF, renal failure) ASA 5: a moribund patient not expected to survive 24 hrs. (ruptured aneurysm) ASA 6: a declared brain- patient whose organs are being harvested. For emergent operations, add the letter E after the classification Mallampati Classification Grade 3 Sedation Plan Analgesia, Amnesia, Plan communicated to team members, Discussed options with patient/fam, Discussed risks with patient/fam The patient is an appropriate candidate to undergo the planned procedure, sedation, and anesthesia. The patient immediately re-assessed prior to indication. ANISA PAEZ MD November 01, 2020 09:56
[2020-11-01] MEDS ORDERED: HEParin 1000 UNIT/ML (10ML VIAL) FOR BOLUS ONE (09:59)
[2020-11-01] MEDS ORDERED: NITRO DRIP 25000 MCG/D5W 250 ML IV ONE (09:59)
[2020-11-01] MEDS ORDERED: MIDAZOLAM 5 MG/5 ML (VERSED) VIAL ONE (09:59)
[2020-11-01] MEDS ORDERED: fentaNYL INJ 100 MCG/2 ML AMP ONE (09:59)
[2020-11-01] MEDS ORDERED: VERAPAMIL 5 MG/2 ML (CALAN) VIAL IV ONE (09:59)
--- NOTE | 2020-11-01 10:52 | Discharge Inst-Post CATH ---
Discharge Inst-CATH/EP Problems Reviewed?: Yes Post Cardiac Cath/EP D/C Inst Follow Up/Plan Appointment with Dr. Ferguson's office in 2 to 4 weeks <b>CARDIAC CATH/EP PROCEDURE DISCHARGE INSTRUCTIONS</b> ACTIVITY * Go Home directly and rest. * Limit activity of the leg (or wrist if it was used) for 7 days including aer obics, swimming, jogging, bicycling, etc. * Restrict stair-climbing for 7 days if possible, if not, climb up with your non-cath leg, then bring together on the same step. * Avoid lifting, pushing, pulling or excessive movement of the affected extremi ty for 7 days. * Customary sexual activity may be resumed after 2 days-use caution not to use a position that strains or causes pain to the affected extremity. * No driving for 24 hours. * NO SMOKING. * Avoid straining for bowel movements for 7 days. * Gentle walking on level ground is allowed. * Returning to work will depend on the type of procedure and the results. Your doctor will discuss this with you. CALL YOUR DOCTOR FOR ANY OF THE FOLLOWING: *If bleeding from the puncture site occurs- Apply gentle pressure to site with clean cloth and call your doctor or EMS. * If a knot or lump forms under the skin, increases in size, or causes pain. * If bruising appears to be worsening or moving further down your leg instead of disappearing. * Temperature above 101 F. CARE OF YOUR GROIN INCISION; * Bruising or purple discoloration of the skin near the puncture site is common. * You may shower only, no bathtub bathing for 5 days. Be careful to avoid slipping as your leg may feel stiff. * If a closure device was used on your femoral artery, please see the attached guide regarding care of the device and your leg. * Leave dressing on FOR 24 hours. CARE OF YOUR WRIST INCISION; * Bruising or purple discoloration of the skin near the puncture site is common. * You may shower. * DO NOT submerge wrist. * Leave dressing on FOR 24 hours. ANISA FERGUSON MD November 01, 2020 10:52 am
--- NOTE | 2020-11-01 10:55 | Cardiac Cath Report ---
Cardiac Cath Report Physician (s)/Recording Studio Internship (s) Physician ANISA PAEZ MD Pre-Procedure Diagnosis Pre-Procedure Diagnosis: Coronary artery disease Post-Procedure Note Procedure Start Date: November 01, 2020 Name of Procedure: Left heart catheterization Findings/Procedure Note PROCEDURE NOTE: 85-year-old gentleman with recurrent chest pain, had an abnormal stress test, scheduled for cardiac catheterization possible PTCA. After explaining the procedure to the patient, all pros and cons were explained, all questions were answered. The patient signed the consent and then he was p laced on the cardiac catheterization laboratory. Groin was prepped SL fashion local anesthesia was used. Sheath placed in the right radial artery, Marion catheter was advanced to the left ventricular cavity, pressure was measured, pullback LV to aorta was done, intubated the right and left coronary system and angiogram was done. At the end of the procedure the sheath was removed. Vascular band was deployed FINDINGS: Hemodynamics LV 88/1, end-diastolic pressure 4 1 Aorta 92/37 mean of 54 ANATOMY: Left Main is free of obstructive disease Left Anterior Descending has mild disease nonobstructive disease Left Circumflex has no significant obstructive disease Right Coronary Artery is slightly tortuous with mild disease nonobstructive disease LV Gram was not done, pressure was measured CONCLUSION: 1. Mild coronary artery disease nonobstructive disease 2. Normal left ventricular end-diastolic pressure DISCUSSION AND RECOMMENDATION: Medical therapy is recommended no intervention is warranted, small vessel disease, probably abnormal stress test is due to extracardiac attenuation Anesthesia Type: Conscious Sedation Estimated blood loss (mL): 10 ml Contrast Amount: 15 ml Total Radiation Dose: 238 mGy Post-Procedure Diagnosis Post-operative diagnosis: Chest pain Coronary artery disease Hypertension Hyperlipidemia ANISA PAEZ MD November 01, 2020 10:55 am
[2020-11-01 11:15] VITALS: BP 111/68
[2020-11-01 11:30] VITALS: BP 120/59
[2020-11-01 11:45] VITALS: BP 116/56
[2020-11-01 12:00] VITALS: BP 127/59
[2020-11-01 12:15] VITALS: BP_SYST 119; BP_SYST 131; BP_DIAS 56; BP_DIAS 58
== END 2020-11-01 14:15 ==
LOC: CATH 07:49 → SDC 11:14 → CATH 14:15
PROVIDERS: ATTEND Internal Medicine Cardiovascular Disease
DX: R07.2 Precordial pain (principal); R06.02 Shortness of breath; I48.0 Paroxysmal atrial fibrillation; I25.10 Atherosclerotic heart disease of native coronary artery without angina pectoris; E78.2 Mixed hyperlipidemia; I49.1 Atrial premature depolarization; I49.3 Ventricular premature depolarization; J44.9 Chronic obstructive pulmonary disease, unspecified; I10 Essential (primary) hypertension; F17.220 Nicotine dependence, chewing tobacco, uncomplicated; Z88.2 Allergy status to sulfonamides; Z79.01 Long term (current) use of anticoagulants; Z79.899 Other long term (current) drug therapy
CPT/HCPCS: 71045; 80053; 80061; 85027; 85610; 85730; 87081; 93458; C1894; 36415

== ENCOUNTER → 2020-11-28 | Outpatient (CLI) | payer MEDICARE ==
[~2020-11-28] MED LIST changes: +APIX2.5T PO; +CHOL200074 PO; +DILT120C88 PO; +FLUT9.9S NS; +FURO20TA4 PO; +GUAI600T28 PO; -HEParin (CATH LAB) 2,000 ML IV ONE; +IPRA3AMP31 IH; +LEVO5TAB12 PO; -LIDOCAINE 1% INJ 20 ML 20 ML VIAL ONE; +MTP25TSR PO; +POTA-51 PO; +[UNRECOGNIZED DRUG - OTHER] PO
--- NOTE | 2020-11-28 10:25 | Diagnostic Imaging Report ---
INDICATION: Pneumonia. COMPARISON: 11/01/2020 and 09/12/2020 FINDINGS: Frontal and lateral radiographic views of the chest were obtained and continue to show bibasilar interstitial prominence. There is no large effusion or pneumothorax. Overall, aeration is stable. Cardiac silhouette and pulmonary vasculature are within normal limits. Osseous structures show no gross acute abnormalities. IMPRESSION: 1. Persistent coarse interstitial bibasilar opacities. When compared to more remote exam dated 06/05/2016, this appears to be a chronic, stable finding. Dictated by: Dictated on workstation # [id number]
== END ==
LOC: RAD 08:50
PROVIDERS: ATTEND Nurse Practitioner Family
DX: J18.9 Pneumonia, unspecified organism (principal); R91.8 Other nonspecific abnormal finding of lung field
CPT/HCPCS: 71046

== ENCOUNTER → 2021-01-01 | Outpatient (CLI) | payer MEDICARE ==
[~2021-01-01] MED LIST changes: +GADOBUTROL 10 MMOL/10 ML (GADAVIST) VIAL IV ONE
--- NOTE | 2021-01-01 12:44 | Diagnostic Imaging Report ---
PROCEDURE: MR imaging of the brain with and without contrast. TECHNIQUE: Multiplanar, multisequence MR imaging of the brain was performed with and without contrast. Additional dedicated sequences performed of the bilateral IAC. INDICATION: Hearing loss. COMPARISON: 09/09/2020. FINDINGS: No acute ischemia, mass, or hemorrhage. No abnormal intracranial enhancement is seen. Scattered T2 hyperintense signal is seen in the periventricular and subcortical white matter. The ventricles and cortical sulci are prominent. The basilar cisterns are symmetric and unremarkable. The sellar and suprasellar regions have a normal appearance. The major intracranial flow voids are intact. The brainstem and posterior fossa are unremarkable. The 7th and 8th cranial nerves have a normal course without evidence of abnormal enhancement or mass. No CPA mass is seen. The internal auditory canals have a symmetric appearance bilaterally. The Meckel's caves and cavernous sinuses are unremarkable. The bilateral inner ear structures have a normal MR appearance. Postsurgical changes are seen in the left mastoid air cells. Effusion is seen in the left mastoid air cells. There is enhancing soft tissue fullness throughout the left mastoid air cells and left middle ear. The right mastoid air cells are unremarkable. Mucosal thickening is seen throughout the paranasal sinuses. Fluid is seen within the bilateral maxillary sinuses. The globes and orbits are symmetric and unremarkable. The scalp and calvarium have a normal appearance. IMPRESSION: 1. No acute ischemia, mass, or hemorrhage. No abnormal intracranial enhancement. 2. Postsurgical changes in the left mastoid air cells and left middle ear cavity. There is enhancing soft tissue fullness throughout the left middle ear cavity and mastoid air cells. 3. Unremarkable appearance of the 7th and 8th cranial nerves bilaterally. No evidence of CPA mass. 4. Generalized parenchymal volume loss with scattered chronic microvascular disease. Dictated by: Dictated on workstation # [id number]
== END ==
LOC: RAD 09:18
PROVIDERS: ATTEND Specialist
DX: I67.2 Cerebral atherosclerosis (principal); H91.90 Unspecified hearing loss, unspecified ear
CPT/HCPCS: 70553

== ENCOUNTER → 2022-02-28 | Outpatient (CLI) | payer MEDICARE ==
[~2022-02-28] MED LIST changes: -GADOBUTROL 10 MMOL/10 ML (GADAVIST) VIAL IV ONE; +GFCD10B PO; -GUAI473L29 PO; -GUAI600T28 PO; +GUAI600T99 PO
== END ==
LOC: CARD 08:16
PROVIDERS: ATTEND Internal Medicine Cardiovascular Disease
DX: I25.10 Atherosclerotic heart disease of native coronary artery without angina pectoris (principal); I11.9 Hypertensive heart disease without heart failure; I08.0 Rheumatic disorders of both mitral and aortic valves
CPT/HCPCS: 93306